=== PATIENT | male | born 1945 | race Two or more races ===

== ENCOUNTER 2023-01-11 17:45 | Inpatient (IN) | payer OTHER ==
[~2023-01-11] VITALS: Ht 162.6 cm; Wt 80.0 kg
[2023-01-11 18:47] VITALS: PULSE 64; RESP 13; O2SAT 95
[2023-01-11 19:11] LABS: Urine Bacteria NONE SEEN /hpf (None Seen); Urine Blood 3+ /uL (Negative); Urine Budding Yeast MANY /hpf (None Seen); Urine Clarity HAZY (Clear); Urine Color Red (Yellow); Urine Protein, UAD 2+ (Negative); Urine Urobilinogen Normal (Negative); Urine WBC 647 /hpf (0 - 3); Urine WBC Clumps PRESENT /hpf (None Seen); Urine pH 5.5 (5.0-8.0)
[2023-01-11 19:30] VITALS: PULSE 63; RESP 16; O2SAT 93
[2023-01-11 19:31] LABS: Basophils # (auto) 0 10 ^3/uL (0-0.2); Basophils % (auto) 0.3 % (0.0-2.0); Eosinophils # (auto) 0.1 10 ^3/uL (0-0.8); Eosinophils % (auto) 1.1 % (0.0-7.0); Hematocrit 33.4 % (41.0-53.0); Hemoglobin 11.1 g/dL (13.5-17.5); Lymphocytes # (auto) 1.6 10 ^3/uL (0.4-5.4); Mean Corpuscular Hemoglobin 28.9 pg (28.0-32.0); Mean Corpuscular Hgb Conc. 33.2 g/dL (32.0-36.0); Mean Corpuscular Volume 87.2 fL (80.0-100.0); Monocytes % (auto) 8.5 % (0.0-12.0); Neutrophils # (auto) 8.5 10 ^3/uL (1.6-8.6); Neutrophils % (auto) 76.1 % (37.0-80.0); Nucleated Red Blood Cells % 0.1 %; Red Blood Cells 3.84 10^6/uL (4.5-5.90); Red Cell Distribution Width 14.4 % (11.8-14.3); White Blood Cell 11.2 10^3/uL (4.4-10.8)
[2023-01-11 19:46] LABS: Alanine Aminotransferase 20 U/L (7-40); Albumin 3.9 g/dL (3.2-4.8); Alkaline Phosphatase 64 U/L (46-116); Anion Gap 8 (5-15); Aspartate Aminotransferase 30 U/L (13-40); BUN/Creatinine Ratio 15.9 (10.0-20.0); Bilirubin, Total 0.4 mg/dL (0.2-1.0); Blood Urea Nitrogen 24 mg/dL (9-23); Calcium 9.2 mg/dL (8.5-10.1); Carbon Dioxide 28 mmol/L (20-30); Chloride 101 mmol/L (98-107); Glucose 144 mg/dL (74-106); Potassium 4.2 mmol/L (3.5-5.1); Sodium 137 mmol/L (136-145); Total Protein 6.3 g/dL (5.7-8.2)
[2023-01-11 20:05] LABS: INR 1.06 (0.9-1.15); Partial Thromboplastin Time 25.7 SEC (24.5-34.5); Prothrombin Time 11.1 sec (9.3-11.8)
[2023-01-11] MEDS ORDERED: ONDANSETRON HCL 4 MG/2 ML VIAL IV ONE (20:15)
[2023-01-11] MEDS ORDERED: MORPHINE SULFATE 4 MG/ML SYR/VIAL IV ONE (20:15)
[2023-01-11] MEDS ORDERED: ACETAMINOPHEN 325 MG TAB PO PRN (21:30)
[2023-01-11] MEDS ORDERED: HYDROcodone-ACET 5/325MG TAB PO PRN (21:30)
[2023-01-11 23:00] VITALS: BP 124/63; PULSE 63; RESP 18; TEMP 98.2; O2SAT 95
[2023-01-11] MEDS ORDERED: TRAZ150T84 PO (23:08)
[2023-01-11] MEDS ORDERED: PREG-111 PO (23:08)
[2023-01-11] MEDS ORDERED: traZODone HCL 50 MG TAB PO SCH (23:15)
[2023-01-11] MEDS: PREGABALIN CAPSULE 75 MG CAP PO SCH (23:29)
[2023-01-11 23:40] VITALS: BP 124/64; PULSE 63; RESP 13; TEMP 98.2; O2SAT 95
[2023-01-12] MEDS ORDERED: TAMS0.4C36 PO (00:39)
[2023-01-12] MEDS ORDERED: ALEN70TA74 PO (00:39)
[2023-01-12] MEDS ORDERED: FERR325T20 PO (00:39)
[2023-01-12] MEDS ORDERED: DULO1CAP5 PO (00:39)
[2023-01-12] MEDS ORDERED: ATOR40TA52 PO (00:39)
[2023-01-12] MEDS ORDERED: OMEP-448 PO (00:39)
[2023-01-12] MEDS ORDERED: DOCU-265 PO (00:39)
[2023-01-12] MEDS ORDERED: CIPR500T4 PO (00:39)
[2023-01-12 05:00] VITALS: BP 133/71; PULSE 60; RESP 20; TEMP 97.5; O2SAT 92
[2023-01-12 05:14] LABS: Chloride 103 mmol/L (98-107); Potassium 4.2 mmol/L (3.5-5.1); Sodium 138 mmol/L (136-145)
[2023-01-12 05:15] LABS: Anion Gap 3 (5-15); Carbon Dioxide 32 mmol/L (20-30)
[2023-01-12 05:20] LABS: Glucose 118 mg/dL (74-106)
[2023-01-12 05:21] LABS: BUN/Creatinine Ratio 11.3 (10.0-20.0); Blood Urea Nitrogen 16 mg/dL (9-23)
[2023-01-12] MEDS: PREGABALIN CAPSULE 75 MG CAP PO SCH ×2 (05:46→14:00)
[2023-01-12 08:00] VITALS: BP 130/69; PULSE 57; PULSE 60; RESP 16; TEMP 97.9; O2SAT 92
[2023-01-12] MEDS ORDERED: CIPROFLOXACIN 400MG/200ML 200 ML IV ONE (08:10)
[2023-01-12] MEDS ORDERED: PROPOFOL 10 MG/ML 20 ML IV ONE (09:11)
[2023-01-12] MEDS ORDERED: ONDANSETRON HCL 4 MG/2 ML VIAL ONE (09:11)
[2023-01-12] MEDS ORDERED: GLYCOPYRROLATE 0.2 MG/ML 1ML VIAL ONE (09:11)
[2023-01-12] MEDS ORDERED: KETOROLAC TROMETH 30 MG/ML 1ML VIAL ONE (09:11)
[2023-01-12] MEDS ORDERED: DexAMETHasone SOD PHOS 10MG/1ML VIAL INJ ONE (09:11)
[2023-01-12] MEDS ORDERED: LIDOCAINE 2% (LOCAL ANESTH.) PF 5ml SDV ONE (09:11)
[2023-01-12] MEDS ORDERED: fentaNYL CITRATE 100 MCG/2 ML VL ONE (09:12)
[2023-01-12] MEDS ORDERED: BACITRACIN TOP OINT 1 UD PKG TOP ONE (09:18)
[2023-01-12] MEDS ORDERED: LIDOCAINE W/ EPINEPHRINE 2% INJ 20ML VIAL ONE (09:19)
[2023-01-12] MEDS ORDERED: PHENYLEPHRINE HCL 10 MG/ML VL ONE (09:52)
[2023-01-12] MEDS ORDERED: SODIUM CHLORIDE LOCK 10 ML ONE (09:52)
[2023-01-12] MEDS ORDERED: SODIUM CHLORIDE 0.9% 500 ML IV ONE (10:15)
[2023-01-12 11:07] VITALS: PULSE 96; RESP 12; O2SAT 100
[2023-01-12] MEDS ORDERED: LABETALOL HCL 5 MG/ML 4ML SYRINGE IV PRN (11:15)
[2023-01-12] MEDS ORDERED: ONDANSETRON HCL 4 MG/2 ML VIAL IV PRN (11:15)
[2023-01-12] MEDS ORDERED: ePHEDrine SULFATE 50 MG/ML AMP IV PRN (11:15)
[2023-01-12] MEDS ORDERED: hydrALAZINE HCL 20 MG/ML VL IV PRN (11:15)
[2023-01-12] MEDS ORDERED: NALOXONE HCL 0.4 MG/ML VIAL IV PRN (11:15)
[2023-01-12] MEDS ORDERED: fentaNYL CITRATE 100 MCG/2 ML VL IV PRN (11:15)
[2023-01-12] MEDS ORDERED: FLUMAZENIL 0.1 MG/ML INJ 10ML MDV IV PRN (11:15)
[2023-01-12] MEDS: HYDROmorphone HCL 2 MG/ML VL/or syr IV PRN ×4 (11:24→11:57)
[2023-01-12 12:00] VITALS: PULSE 65; RESP 12; O2SAT 100
[2023-01-12] MEDS ORDERED: HYDR-4902 PO (15:29)
[2023-01-12 16:00] VITALS: BP 134/74; PULSE 78; RESP 18; TEMP 97.9; O2SAT 98
[2023-01-12 18:27] LABS: Chloride 98 mmol/L (98-107); Potassium 4.5 mmol/L (3.5-5.1); Sodium 133 mmol/L (136-145)
[2023-01-12 18:28] LABS: Anion Gap 6 (5-15); Calcium 9.1 mg/dL (8.7-10.4); Carbon Dioxide 29 mmol/L (20-30)
[2023-01-12 18:33] LABS: BUN/Creatinine Ratio 10.9 (10.0-20.0); Blood Urea Nitrogen 14 mg/dL (9-23); Glucose 179 mg/dL (74-106)
== END 2023-01-12 21:00 | disposition home health service (06) | DRG 717 ==
LOC: ER 17:45 → TELE 21:59 → TELE-WESTW 23:05
PROVIDERS: ADMIT Internal Medicine; ATTEND Internal Medicine
PROC: 0T5C8ZZ Destruction of Bladder Neck, Via Natural or Artificial Opening Endoscopic (ICD-10-PCS; principal; 2023-01-12 09:38)
DX: N40.1 Benign prostatic hyperplasia with lower urinary tract symptoms (principal); N13.8 Other obstructive and reflux uropathy; N17.9 Acute kidney failure, unspecified; E78.5 Hyperlipidemia, unspecified; F32.9 Major depressive disorder, single episode, unspecified; F41.9 Anxiety disorder, unspecified; G62.9 Polyneuropathy, unspecified; I12.9 Hypertensive chronic kidney disease with stage 1 through stage 4 chronic kidney disease, or unspecified chronic kidney disease; K21.9 Gastro-esophageal reflux disease without esophagitis; M81.0 Age-related osteoporosis without current pathological fracture; N18.9 Chronic kidney disease, unspecified; N32.0 Bladder-neck obstruction; N47.1 Phimosis; R31.0 Gross hematuria; R33.8 Other retention of urine
CPT/HCPCS: 36415; 76775; 80048; 80053; 81001; 83615; 85025; 85610; 85730; 86850; 86900; 86901; 87040; 87086; 96374; 96375; G0378; J1100; J1885; J2001; J2405; J2704

== ENCOUNTER 2024-04-15 11:03 | Emergency (ER) | payer OTHER, MEDICAID ==
[~2024-04-15] VITALS: Ht 160 cm; Wt 76.2 kg
[~2024-04-15 11:03] MED LIST: ALEN70TA74 PO; ATOR40TA52 PO; CIPR500T4 PO; DOCU-265 PO; DULO1CAP5 PO; FERR325T20 PO; HYDR-4902 PO; OMEP-448 PO; PREG150C63 PO; TAMS0.4C39 PO; TRAZ150T84 PO
[2024-04-15 11:35] VITALS: BP 105/64; PULSE 88; RESP 21; O2SAT 97
[2024-04-15] MEDS: HYDROcodone-ACET 5/325MG TAB PO ONE (13:20)
--- NOTE | 2024-04-15 13:23 | DVH ---
CLINICAL INDICATION: neck pain TECHNIQUE: 3 radiographic views of the cervical spine were obtained. Comparison: None FINDINGS/IMPRESSION: 7 [id number] cervical type vertebra. Straightening of the cervical lordosis. Vertebral body he ights are maintained. No evidence of acute traumatic fractures or spondylolisthesis. Diffuse deminer alization. Postsurgical changes of C4-C7. The dens is intact with the lateral masses of C1 and C2 are properly aligned. The prevertebral soft tissues are unremarkable. Airways appear patent.
[2024-04-15 15:11] LABS: Basophils # (auto) 0 10 ^3/uL (0-0.2); Basophils % (auto) 0.4 % (0.0-2.0); Eosinophils # (auto) 0.2 10 ^3/uL (0-0.8); Eosinophils % (auto) 2.2 % (0.0-7.0); Hemoglobin 12.9 g/dL (13.5-17.5); Lymphocytes # (auto) 2.3 10 ^3/uL (0.4-5.4); Lymphocytes % (auto) 22.1 % (10.0-50.0); Mean Corpuscular Hemoglobin 27.7 pg (28.0-32.0); Mean Corpuscular Hgb Conc. 32.2 g/dL (32.0-36.0); Monocytes # (auto) 0.9 10 ^3/uL (0-1.3); Monocytes % (auto) 9.1 % (0.0-12.0); Neutrophils # (auto) 6.8 10 ^3/uL (1.6-8.6); Neutrophils % (auto) 66.2 % (37.0-80.0); Nucleated Red Blood Cells % 0.4 %; Platelet Count (auto) 150 10^3/uL (140-450); Red Blood Cells 4.65 10^6/uL (4.5-5.90); White Blood Cell 10.2 10^3/uL (4.4-10.8)
[2024-04-15 15:15] LABS: Anion Gap 8 (5-15); Carbon Dioxide 25 mmol/L (20-31); Chloride 102 mmol/L (98-107); Potassium 4.4 mmol/L (3.5-5.1)
[2024-04-15 15:16] LABS: Calcium 10.2 mg/dL (8.7-10.4)
[2024-04-15 15:21] LABS: BUN/Creatinine Ratio 14.3 (10.0-20.0); Blood Urea Nitrogen 20 mg/dL (9-23); Glucose 100 mg/dL (74-106)
[2024-04-15 15:29] LABS: Sodium 135 mmol/L (136-145)
--- NOTE | 2024-04-15 15:40 | ED.PDOC ---
Back pain HPI HPI Comments 78-year-old male with no MHx is brought in by with a chief complaint of atraumatic neck pain x1 day. Woke up and pain was present Worsens with lateral movements. Applied and neck brace and reports some improvement. Has not taken medications for the symptoms listed above. Denies fevers chills nausea vomiting diarrhea. Chief Complaint: Neck Pain Time Seen by MD: 11:52 Reviewed Notes: Nurses Notes, Medications, Allergies Allergies: Coded Allergies: NO KNOWN ALLERGIES (Unverified , 01/11/23) Home Meds Active Scripts Hydrocodone-Acetaminophen (Hydrocodone Bitartrate/AC 5-325 mg) 1 Tab Tab, 1 TAB PO Q6HPRN PRN, #20 TAB Prov:LEONIDES SIM MD 01/12/23 Reported Medications Docusate Sodium (Docusate Sodium) 100 Mg Cap, 1 CAP PO TID PRN for constipation 01/12/23 Duloxetine HCl (Duloxetine HCl) 30 Mg Cap, 3 CAP PO DAILY 01/12/23 Omeprazole (Omeprazole Dr) 40 Mg Cap, 1 CAP PO DAILY 01/12/23 Alendronate Sodium (Alendronate Sodium) 70 Mg Tab, 1 TAB PO QWEEKLY 01/12/23 Ciprofloxacin Hcl (Ciprofloxacin Hcl) 500 Mg Tab, 1 TAB PO BID 01/12/23 Tamsulosin Hcl (Tamsulosin Hcl) 0.4 Mg Cap, 2 CAP PO DAILY 01/12/23 Ferrous Sulfate (Ferosul) 325 Mg Tab, 1 TAB PO BID 01/12/23 Atorvastatin Calcium (ATORVASTATIN CALCIUM) 40 Mg Tab, 1 TAB PO 01/12/23 Pregabalin (Pregabalin) 150 Mg Cap, 1 CAP PO TID 01/11/23 Trazodone HCl (Trazodone Hydrochorlide) 150 Mg Tab, 1 TAB PO 01/11/23 Information Source: Spouse Mode of Arrival: Wheelchair Past Medical History PAST MEDICAL HISTORY: Denies Surgical History: Denies all surgeries All Other Systems: Reviewed and Negative (per hpi) Physical Exam General Appearance: No Apparent Distress, Normal HEENT: Normal ENT Inspection, Pharynx Normal, TMs Normal Neck: Full Range of Motion, Non-Tender, Normal, Normal Inspection, Other (No nuchal rigidity.) Respiratory: Chest Non-Tender, Lungs Clear, No Accessory Muscle Use, No Respiratory Distress, Normal Breath Sounds Cardiovascular: No Edema, No JVD, No Murmur, No Gallop, Normal Peripheral Pulses, Regular Rate/Rhythm Breast Exam: Deferred Gastrointestinal: No Organomegaly, Non Tender, No Pulsatile Mass, Normal Bowel Sounds, Soft Genitalia: Deferred Pelvic: Deferred Rectal: Deferred Extremities: No calf tenderness, Normal capillary refill, Normal inspection, Normal range of motion, Non-tender, No pedal edema Musculoskeletal : Apperance: Normal Neurologic: Alert, space technologist II-XII nml as Tested, No Motor Deficits, Normal Affect, Normal Mood, No Sensory Deficits Cerebellar Function: Normal Reflexes: Normal Skin: Dry, Normal Color, Warm Lymphatic: No Adenopathy Was a procedure done? Was a procedure done?: No Back Pain Differential Dx Differential Diagnosis: Musculoskeletal Pain, Other X-Ray, Labs, Meds, VS Vital Signs Date Time Temp Pulse Resp B/P (MAP) Pulse Ox O2 Delivery O2 Flow Rate FiO2 04/15/24 11:35 98.2 88 21 105/64 (78) 97 Lab Test 04/15/24 14:22 Range/Units White Blood Count 10.2 4.4-10.8 10^3/uL Red Blood Count 4.65 4.5-5.90 10^6/uL Hemoglobin 12.9 L 13.5-17.5 g/dL Hematocrit 40.0 L 41.0-53.0 % Mean Corpuscular Volume 86.0 80.0-100.0 fL Mean Corpuscular Hemoglobin 27.7 L 28.0-32.0 pg Mean Corpuscular Hemoglobin Concent 32.2 32.0-36.0 g/dL Red Cell Distribution Width 15.0 H 11.8-14.3 % Platelet Count 150 140-450 10^3/uL Mean Platelet Volume 8.9 6.9-10.8 fL Neutrophils (%) (Auto) 66.2 37.0-80.0 % Lymphocytes (%) (Auto) 22.1 10.0-50.0 % Monocytes (%) (Auto) 9.1 0.0-12.0 % Eosinophils (%) (Auto) 2.2 0.0-7.0 % Basophils (%) (Auto) 0.4 0.0-2.0 % Neutrophils # (Auto) 6.8 1.6-8.6 10 ^3/uL Lymphocytes # (Auto) 2.3 0.4-5.4 10 ^3/uL Monocytes # (Auto) 0.9 0-1.3 10 ^3/uL Eosinophils # (Auto) 0.2 0-0.8 10 ^3/uL Basophils # (Auto) 0 0-0.2 10 ^3/uL Nucleated Red Blood Cells 0.4 % Sodium Level 135 L 136-145 mmol/L Potassium Level 4.4 3.5-5.1 mmol/L Chloride Level 102 98-107 mmol/L Carbon Dioxide Level 25 20-31 mmol/L Anion Gap 8 5-15 Blood Urea Nitrogen 20 9-23 mg/dL Creatinine 1.40 H 0.700-1.30 mg/dL Glomerular Filtration Rate Calc 51 >90 mL/min BUN/Creatinine Ratio 14.3 10.0-20.0 Serum Glucose 100 74-106 mg/dL Lactic Acid Level 1.0 0.4-2.0 mmol/L Calcium Level 10.2 8.7-10.4 mg/dL Current Medications Medications (Trade) Dose Ordered Sig/Melanie Route Start Time Stop Time Status Last Admin Acetaminophen/ Hydrocodone Bitart ([place] 5/325MG Tab) 1 tab ONCE ONCE PO 04/15/24 13:15 04/15/24 13:16 DC 04/15/24 13:20 X-Ray, Labs, Meds, VS Comment The patients history and physical exam are consistent with a benign headache. Likely musculoskeletal related. Considered subarachnoid hemorrhage however this is less likely given that the patient has had a similar and worst headaches in the past, the lack of trauma, and the slow onset with intermittent symptomatology. Low suspicion of meningitis given the afebrile, well-appearing, and without meningismus on exam. Additionally no history of recent trauma prior to the patient experiencing this headache. Finally, the patient does not report any positional exacerbation with the headaches and has not had a recent spinal procedures therefore my suspicion for central causes and post procedural etiologies of headaches are less likely. Low concern for meningitis as there are no signs of fever, altered mentation nor neck stiffness. Brudzinski/Kernig negative. Given benign exam and history, CT imaging was discussed with the patient and was deferred during this visit. While in the ED, the patient was treated with x1 the patient reported significant improvement on re-evaluation. Patient was overall well-appearing and hemodynamically stable in the ED. They were able to ambulate and continued to have a nonfocal exam in the emergency department. Discussed continued symptomatic treatment at home. Recommended follow up with PCP. Return precautions to the ED discussed Counseled to start headache diary Recommended headache elimination diet Avoid prolonged periods of fasting Drink plenty of water Exercise daily, limit screen time Aim to sleep 8 to 9 hours per night, practice good hygiene ED precautions given Time of 1ST Reevaluation: 15:30 Reevaluation 1ST: Improved Patient Education/Counseling: Diagnosis, Treatment Family Education/Counseling: Diagnosis, Treatment Departure 1 Departure Time of Disposition: 15:40 Impression: Primary Impression: Cervicalgia Disposition: 01 HOME / SELF CARE / HOMELESS Condition: Stable Discharged With: Self Critical Care Note Critical Care Time?: No Stability Stability form required: No Heart Score Heart Score: Heart Score Response (Comments) Value History N/A 0 EKG N/A 0 Age N/A 0 Risk Factors N/A 0 Troponin N/A 0 Total 0 YULIANA HARPER NP Apr 15, 2024 15:40
== END 2024-04-15 15:46 | disposition home or self-care (01) ==
LOC: ER 11:03
DX: M54.2 Cervicalgia (principal); Z79.899 Other long term (current) drug therapy
CPT/HCPCS: 36415; 72040; 80048; 83605; 85025

== ENCOUNTER 2025-02-10 23:30 | Inpatient (IN) | payer OTHER, MEDICAID ==
[~2025-02-10] VITALS: Ht 162.6 cm; Wt 78.0 kg
--- NOTE | 2025-02-10 23:49 | ECG ---
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
--- NOTE | 2025-02-10 23:51 | ED.PDOC ---
HPI Comments 79-year-old male complains of dull parasternal chest pain for last 1 day. Unprovoked. Gets worse with activity. Chief Complaint: Chest Pain Time Seen by MD: 23:39 Allergies: Coded Allergies: NO KNOWN ALLERGIES (Unverified , 01/11/23) Home Meds Active Scripts Hydrocodone-Acetaminophen (Hydrocodone Bitartrate/AC 5-325 mg) 1 Tab Tab, 1 TAB PO Q6HPRN PRN, #20 TAB Prov:LEONIDES SIM MD 01/12/23 Reported Medications Docusate Sodium (Docusate Sodium) 100 Mg Cap, 1 CAP PO TID PRN for constipation 01/12/23 Duloxetine HCl (Duloxetine HCl) 30 Mg Cap, 3 CAP PO DAILY 01/12/23 Omeprazole (Omeprazole Dr) 40 Mg Cap, 1 CAP PO DAILY 01/12/23 Alendronate Sodium (Alendronate Sodium) 70 Mg Tab, 1 TAB PO QWEEKLY 01/12/23 Ciprofloxacin Hcl (Ciprofloxacin Hcl) 500 Mg Tab, 1 TAB PO BID 01/12/23 Tamsulosin Hcl (Tamsulosin Hcl) 0.4 Mg Cap, 2 CAP PO DAILY 01/12/23 Ferrous Sulfate (Ferosul) 325 Mg Tab, 1 TAB PO BID 01/12/23 Atorvastatin Calcium (ATORVASTATIN CALCIUM) 40 Mg Tab, 1 TAB PO 01/12/23 Pregabalin (Pregabalin) 150 Mg Cap, 1 CAP PO TID 01/11/23 Trazodone HCl (Trazodone Hydrochorlide) 150 Mg Tab, 1 TAB PO 01/11/23 Information Source: Patient, Relative Mode of Arrival: Ambulatory Severity: Moderate Timing: Hours Duration: Since onset Past Medical History PAST MEDICAL HISTORY: Denies Surgical History: Denies all surgeries Social History Smoker: Non-Smoker Alcohol: Denies ETOH Use Drugs: Denies Drug Use Constitutional: reports: fatigue, malaise Cardiovascular: reports: chest pain Genitourinary: reports: dysuria All Other Systems: Reviewed and Negative Physical Exam General Appearance: Moderate Distress HEENT: Normal ENT Inspection, Pharynx Normal, TMs Normal Neck: Full Range of Motion, Non-Tender, Normal, Normal Inspection Respiratory: Chest Non-Tender, Lungs Clear, No Accessory Muscle Use, No Respiratory Distress, Normal Breath Sounds Cardiovascular: No Edema, No JVD, No Murmur, No Gallop, Normal Peripheral Pulses, Regular Rate/Rhythm Breast Exam: Deferred Gastrointestinal: No Organomegaly, Non Tender, No Pulsatile Mass, Normal Bowel Sounds, Soft Genitalia: Deferred Pelvic: Deferred Rectal: Deferred Extremities: No calf tenderness, Normal capillary refill, Normal inspection, Normal range of motion, Non-tender, No pedal edema Musculoskeletal : Apperance: Normal Neurologic: Alert, produce field merchandiser II-XII nml as Tested, No Motor Deficits, Normal Affect, Normal Mood, No Sensory Deficits Cerebellar Function: Normal Reflexes: Normal Skin: Dry, Normal Color, Warm Lymphatic: No Adenopathy Was a procedure done? Was a procedure done?: No CP Differential Dx Differential Diagnosis: A-fib, A-Flutter, Angina, Electrolyte Disorder, Heart Failure, MAT, SD, V-Fib, V-Tach, Other X-Ray, Labs, Meds, VS Vital Signs Date Time Temp Pulse Resp B/P (MAP) Pulse Ox O2 Delivery O2 Flow Rate FiO2 02/11/25 01:20 17 98 Nasal Cannula* 2 28 02/11/25 01:16 86 02/11/25 01:14 97.9 86 17 154/95 (114) 98 97.9 02/11/25 01:00 97.9 89 16 149/77 (101) 93 97.9 02/11/25 00:40 82 02/11/25 00:40 82 02/11/25 00:32 Room Air* 0 21 02/11/25 00:25 80 13 149/89 02/10/25 23:44 98.2 80 16 149/89 95 98.2 02/10/25 23:38 79 Lab Test 02/11/25 00:40 02/10/25 23:41 Range/Units Sodium Level 128 L 136-145 mmol/L Potassium Level 5.5 H 3.5-5.1 mmol/L Chloride Level 94 L 98-107 mmol/L Carbon Dioxide Level 21 20-31 mmol/L Anion Gap 13 5-15 Blood Urea Nitrogen 59 H 9-23 mg/dL Creatinine 8.06 H 0.700-1.30 mg/dL Glomerular Filtration Rate Calc 6 >90 mL/min BUN/Creatinine Ratio 7.3 L 10.0-20.0 Serum Glucose 99 74-106 mg/dL Calcium Level 8.8 8.7-10.4 mg/dL Total Bilirubin 0.4 0.2-1.0 mg/dL Aspartate Amino Transferase (AST) 21 13-40 U/L Alanine Aminotransferase (ALT) 13 7-40 U/L Alkaline Phosphatase 92 46-116 U/L Troponin I High Sensitivity 10 12 </=54 ng/L Total Protein 6.9 5.7-8.2 g/dL Albumin 3.9 3.2-4.8 g/dL White Blood Count 9.4 4.4-10.8 10^3/uL Red Blood Count 3.90 L 4.5-5.90 10^6/uL Hemoglobin 10.9 L 13.5-17.5 g/dL Hematocrit 32.7 L 41.0-53.0 % Mean Corpuscular Volume 83.9 80.0-100.0 fL Mean Corpuscular Hemoglobin 27.9 L 28.0-32.0 pg Mean Corpuscular Hemoglobin Concent 33.2 32.0-36.0 g/dL Red Cell Distribution Width 14.0 11.8-14.3 % Platelet Count 120 L 140-450 10^3/uL Mean Platelet Volume 9.3 6.9-10.8 fL Neutrophils (%) (Auto) 65.1 37.0-80.0 % Lymphocytes (%) (Auto) 22.4 10.0-50.0 % Monocytes (%) (Auto) 7.8 0.0-12.0 % Eosinophils (%) (Auto) 4.4 0.0-7.0 % Basophils (%) (Auto) 0.3 0.0-2.0 % Neutrophils # (Auto) 6.1 1.6-8.6 10 ^3/uL Lymphocytes # (Auto) 2.1 0.4-5.4 10 ^3/uL Monocytes # (Auto) 0.7 0-1.3 10 ^3/uL Eosinophils # (Auto) 0.4 0-0.8 10 ^3/uL Basophils # (Auto) 0 0-0.2 10 ^3/uL Nucleated Red Blood Cells 0.0 % Prothrombin Time 10.6 9.3-11.8 sec Prothrombin Time INR 1.00 0.9-1.15 Activated Partial Thromboplast Time 30.8 24.5-34.5 SEC B-Type Natriuretic Peptide 103.39 0-100 pg/mL Current Medications Medications (Trade) Dose Ordered Sig/Melanie Route Start Time Stop Time Status Last Admin Morphine Sulfate 4 mg ONCE ONCE IV 02/11/25 00:00 02/11/25 00:01 DC 02/11/25 00:25 Ondansetron HCl (Zofran) 4 mg ONCE ONCE IV 02/11/25 00:00 02/11/25 00:01 DC 02/11/25 00:24 Aspirin 162 mg ONCE ONCE PO 02/11/25 00:00 02/11/25 00:01 DC 02/11/25 00:24 Time of 1ST Reevaluation: 23:50 Reevaluation 1ST: Unchanged Patient Education/Counseling: Diagnosis, Treatment Family Education/Counseling: Diagnosis, Treatment SEPSIS Sepsis Screen Physician Orders Troponin-I Hs (02/11/25 02:47) Chest Xray 1 View (02/10/25 23:52) Bladder Scan (02/10/25 23:52) Vital Signs Date Time Temp Pulse Resp B/P (MAP) Pulse Ox O2 Delivery O2 Flow Rate FiO2 02/11/25 01:20 17 98 Nasal Cannula* 2 28 02/11/25 01:16 86 02/11/25 01:14 97.9 86 17 154/95 (114) 98 97.9 02/11/25 01:00 97.9 89 16 149/77 (101) 93 97.9 02/11/25 00:40 82 02/11/25 00:40 82 02/11/25 00:32 Room Air* 0 21 02/11/25 00:25 80 13 149/89 02/10/25 23:44 98.2 80 16 149/89 95 98.2 02/10/25 23:38 79 Laboratory Tests Test 02/10/25 23:41 White Blood Count 9.4 10^3/uL (4.4-10.8) Medications Medications Dose Ordered Sig/Melanie Route Start Time Stop Time Status Last Admin Dose Admin Aspirin 162 mg ONCE ONCE PO 02/11/25 00:00 02/11/25 00:01 DC 02/11/25 00:24 Morphine Sulfate 4 mg ONCE ONCE IV 02/11/25 00:00 02/11/25 00:01 DC 02/11/25 00:25 Ondansetron HCl 4 mg ONCE ONCE IV 02/11/25 00:00 115/25 00:01 DC 02/11/25 00:24 Departure 1 Departure Time of Disposition: 02:26 Impression: Primary Impression: Acute coronary syndrome Disposition: 09 ADMITTED INPATIENT Admit to: Tele Condition: Guarded Discharged With: Self Comments 79-year-old male with multiple risk factors now with chest pain that gets worse with exertion. Initial troponin is normal. Patient will need admission for supportive care and further cardiac workup. Critical Care Note Critical Care Time?: Yes (35 min-critical care time only) Critical care comment: Total critical care time: Approximately 36 minutes Due to a high probability of clinically significant, life threatening deter ioration, the patient required my highest level of preparedness to intervene emergently and I personally spent this critical care time directly and personally managing the patient. This critical care time included obtaining a history; examining the patient; pulse oximetry; ordering and review of studies; arranging urgent treatment with development of a management plan; evaluation of patient's response to treatment; frequent reassessment; and, discussions with other providers. This critical care time was performed to assess and manage the high probability of imminent, life-threatening deterioration that could result in multi-organ fa ilure. It was exclusive of separately billable procedures and treating other patients. Stability Stability form required: No Heart Score Heart Score: Heart Score Response (Comments) Value History N/A 0 EKG N/A 0 Age N/A 0 Risk Factors N/A 0 Troponin N/A 0 Total 0 MISTY PERALES MD Feb 10, 2025 23:51
[2025-02-11] VITALS (9 sets, daily range): BP systolic 149–166; BP diastolic 90–100; PULSE 81–102; RESP 14–22; TEMP 98–98.2; O2SAT 97–98
[2025-02-11 00:06] LABS: Hematocrit 32.7 % (41.0-53.0); Hemoglobin 10.9 g/dL (13.5-17.5); Mean Corpuscular Hemoglobin 27.9 pg (28.0-32.0); Mean Corpuscular Volume 83.9 fL (80.0-100.0); Nucleated Red Blood Cells % 0.0 %
--- NOTE | 2025-02-11 00:18 | DVH ---
CHEST RADIOGRAPH Indication: chest pain Technique: Single frontal view of the chest was obtained COMPARISON: XY CERVICAL SPINE 3V on DOS: 04/15/24 FINDINGS: Lines and Tubes: None Lungs: Small right pleural effusion. No evidence of focal consolidation. No pneumothorax. Cardiomediastinal contours: Cardiomegaly. Bones: Unremarkable. ACDF hardware. Thoracic spinal cord stimulator. IMPRESSION: 1. Cardiomegaly and small right pleural effusion.
[2025-02-11] MEDS: ONDANSETRON HCL 4 MG/2 ML VIAL IV ONE (00:24)
[2025-02-11 00:25] LABS: INR 1.0 (0.9-1.15); Partial Thromboplastin Time 30.8 SEC (24.5-34.5); Prothrombin Time 10.6 sec (9.3-11.8)
[2025-02-11] MEDS: MORPHINE SULFATE 4 MG/ML SYR/VIAL IV ONE ×2 (00:25→06:04)
[2025-02-11 01:46] LABS: Anion Gap 13 (5-15)
[2025-02-11 01:52] LABS: Alkaline Phosphatase 92 U/L (46-116); BUN/Creatinine Ratio 7.3 (10.0-20.0); Blood Urea Nitrogen 59 mg/dL (9-23); Calcium 8.8 mg/dL (8.7-10.4); Carbon Dioxide 21 mmol/L (20-31); Chloride 94 mmol/L (98-107); Glucose 99 mg/dL (74-106); Potassium 5.5 mmol/L (3.5-5.1); Sodium 128 mmol/L (136-145); Total Protein 6.9 g/dL (5.7-8.2)
[2025-02-11 01:57] LABS: Alanine Aminotransferase 13 U/L (7-40); Albumin 3.9 g/dL (3.2-4.8); Bilirubin, Total 0.4 mg/dL (0.2-1.0)
--- NOTE | 2025-02-11 09:26 | DVH ---
Exam: CT CT AB PEL WO CON-NO ORAL OR IV History: abdominal pain, new onset renal failure Comparison Study: XY CHEST XRAY 1 VIEW on DOS: 02/10/25, US KIDNEY on DOS: 01/11/23 Technique: Multidetector spiral CT of the abdomen and pelvis was performed from lung bases to pubic symphysis. Imaging was performed without intravenous contrast. Coronal and sagittal multiplanar reformats were obtained from the axial data set by the technologist. Radiation Dose : 1. Abdomen/Pelvis: CTDIvol 16.99 mGy, DLP 1102.05 mGy*cm. Findings: Evaluation of vasculature and solid organs is limited due to lack of intravenous contrast use. Lung Bases: Bilateral lower lobe consolidation. The heart is normal in size. There is a small pericardial effusion. Normal caliber thoracic aorta and main pulmonary artery. Liver: The liver is normal in size. No focal lesions. Gallbladder and Biliary Tree: The gallbladder is unremarkable. No intrahepatic or extrahepatic biliary ductal dilatation. Spleen: Unremarkable Pancreas: The pancreas is grossly unremarkable. Adrenal Glands: Unremarkable Kidneys: There is mild bilateral hydroureteronephrosis. No obstructive calculus. GI tract: Fluid distention of the stomach noted. No evidence of small bowel wall thickening or abnormal dilatation to suggest bowel obstruction. There is colonic diverticulosis without acute diverticulitis. The appendix is visualized and is normal. Peritoneum/mesentery/retroperitoneum. No evidence of free intraperitoneal air. No ascites. No evidence of suspicious lymphadenopathy. Abdominal Wall: There are bilateral fat containing inguinal hernias. Vasculature: The visualized abdominal aorta is normal in size and caliber. Evaluation of abdominal and pelvic vessels is limited due to lack of intravenous contrast. Urinary Bladder: Underdistended urinary bladder. There is wall thickening of the urinary bladder. Marshall catheter balloon is noted within the bladder lumen. Pelvic Organs: Unremarkable Musculoskeletal: No aggressive focal bony lesions, acute fractures or dislocation. There is instrumented fusion in the lumbar spine at L4-L5. Soft tissues: There is a stimulator generator in the left lower back. IMPRESSION: 1. Bilateral lower lobe consolidation. 2. Mild bilateral hydroureteronephrosis. No obstructive calculus. Wall thickening of the urinary bladder. Findings are suspicious for cystitis and ascending urinary tract infections. 3. Colonic diverticulosis without acute diverticulitis.
[2025-02-11] MEDS: SODIUM CHLORIDE 0.9% 1,000 ML IV ONE ×2 (09:45→11:00)
--- NOTE | 2025-02-11 10:02 | ED.PDOC ---
Departure 1 Departure Time of Disposition: 10:00 (Patient likely with the acute renal failure. CT scan of abdomen shows multifocal pneumonia. It is well as worsening hydronephrosis. We will empirically cover patient with antibiotics resuscitated with fluid admit patient for further workup and expert consultation) Impression: Primary Impression: Acute renal failure Additional Impressions: Acute coronary syndrome Multifocal pneumonia Hyperkalemia Disposition: ADMITTED INPATIENT Admit to: [facility] Condition: Critical Discharged With: Self Critical Care Note Critical Care Time?: Yes Critical care comment: Hyperkalemia and acute renal failure Authorized and Performed by: Tamar Kovacs MD Total critical care time: Approximately 119 minutes Due to a high probability of clinically significant, life threatening deterioration, the patient required my highest level of preparedness to intervene emergently and I personally spent this critical care time directly and personally managing the patient. This critical care time included obtaining a history; examining the patient; pulse oximetry; ordering and review of studies; arranging urgent treatment with development of a management plan; evaluation of patient's response to treatment; frequent reassessment; and, discussions with other providers. This critical care time was performed to assess and manage the high probability of imminent, life-threatening deterioration that could result in multi-organ failure. It was exclusive of separately billable procedures and treating other patients and teaching time. Please see my other sections and the rest of the note for further information on patient assessment and treatment. TAMAR KOVACS MD Feb 11, 2025 10:01
[2025-02-11] MEDS ORDERED: SODIUM CHLORIDE 0.9% 1,000 ML IV SCH (10:30)
--- NOTE | 2025-02-11 10:41 | DVHHP2 ---
History of Present Illness Reason for Visit: Chest Pain History of Present Illness Jeffery Nixon is an 79-year-old male with past medial history of hypertension, hyperlipidemia, and BPH, who came to the hospital for chest pain. Patient states he has not been able to urinate or have a bowel movement in 2-3 days. He states he has an appointment to see his provider. He was prompted to come to the hospital today due to the chest pain. While in ER his troponin were negative but labs showed acute kidney failure. Patient was seen here in April with a creatine of 1.4 today his creatine is 8.4 with potassium of 5.5. Patient will be admitted for acute renal failure with nephrology consult. Cardiovascular: HTN, hyperipidemia Renal/: Benign prostatic enlarg. Smoke: No ALCOHOL: none Drugs: None Lives: with Family Domestic Violence: Neg Review of Systems Constitutional: No: Fever, Chills, Sweats, Weakness, Malaise, Other Eyes: No: Pain, Vision change, Conjunctivae inflammation, Eyelid inflammation, Other, Redness ENT: No: Ear pain, Ear discharge, Nose pain, Nose discharge, Nose congestion, Mouth pain, Mouth swelling, Throat pain, Throat swelling, Other Respiratory: Shortness of breath; No: Cough, Dry, SOB with excertion, Wheezing, Hemoptysis, Pleuritic Pain, Sputum, Wheezing, Other Cardiovascular: Chest Pain; No: Palpitations, Orthopnea, Paroxysmal Noc. Dyspnea, Edema, Lt Headedness, Other Gastrointestinal: Nausea, Abdominal Pain; No: Vomiting, Diarrhea, Constipation, Melena, Hematochezia, Other Genitourinary: No Dysuria, No Frequency, No Incontinence, No Hematuria, No Retention, No Other Musculoskeletal: No: other, neck pain, shoulder pain, arm pain, back pain, hand pain, leg pain, foot pain Skin: No: Rash, Lesions, Jaundice, Bruising, Other Neurological: No: Weakness, Numbness, Incoordination, Change in speech, Con fusion, Seizures, Other Allergies: Coded Allergies: NO KNOWN ALLERGIES (Unverified , 01/11/23) Medications Current Medications Medications Dose Ordered Sig/Melanie Route Start Time Stop Time Status Last Admin Dose Admin Sodium Chloride 1,000 ml @ 100 mls/hr Q10H IV 02/11/25 10:30 UNV Ondansetron HCl 4 mg Q4HP PRN IV 02/11/25 10:45 UNV Docusate Sodium 100 mg BIDPRN PRN PO 02/11/25 10:45 UNV Nitroglycerin 0.4 mg Q5MINP PRN SL 02/11/25 10:45 UNV Morphine Sulfate 2 mg Q30M PRN IV 02/11/25 10:45 UNV Exam Vital Signs Vital Signs Date Time Temp Pulse Resp B/P (MAP) Pulse Ox O2 Delivery O2 Flow Rate FiO2 02/11/25 08:00 87 14 98 Nasal Cannula* 2 28 02/11/25 08:00 98.2 134/88 (103) 98.2 General Appearance: Alert, Oriented X3, Cooperative, moderate distress HEENT: Atraumatic, PERRLA, Other (mucous memebr dry) Respiratory: Clear to auscultation Cardiovascular: Regular rate, Normal S1, Normal S2 Abdominal: Normal bowel sounds, Soft, No tenderness, No hepatospenomegaly Extremities: No clubbing, No cyanosis, No edema, Normal pulses Skin: No rashes, No breakdown, No significant lesion Neuro: Normal gait, Normal speech, Strength at 5/5 X4 ext Psych/Mental Status: Mental status NL, Mood NL Labs/Xrays Labs Test 02/11/25 00:40 02/10/25 23:41 Range/Units Sodium Level 128 L 136-145 mmol/L Potassium Level 5.5 H 3.5-5.1 mmol/L Chloride Level 94 L 98-107 mmol/L Carbon Dioxide Level 21 20-31 mmol/L Anion Gap 13 5-15 Blood Urea Nitrogen 59 H 9-23 mg/dL Creatinine 8.06 H 0.700-1.30 mg/dL Glomerular Filtration Rate Calc 6 >90 mL/min BUN/Creatinine Ratio 7.3 L 10.0-20.0 Serum Glucose 99 74-106 mg/dL Calcium Level 8.8 8.7-10.4 mg/dL Total Bilirubin 0.4 0.2-1.0 mg/dL Aspartate Amino Transferase (AST) 21 13-40 U/L Alanine Aminotransferase (ALT) 13 7-40 U/L Alkaline Phosphatase 92 46-116 U/L Troponin I High Sensitivity 10 </=54 ng/L Total Protein 6.9 5.7-8.2 g/dL Albumin 3.9 3.2-4.8 g/dL White Blood Count 9.4 4.4-10.8 10^3/uL Red Blood Count 3.90 L 4.5-5.90 10^6/uL Hemoglobin 10.9 L 13.5-17.5 g/dL Hematocrit 32.7 L 41.0-53.0 % Mean Corpuscular Volume 83.9 80.0-100.0 fL Mean Corpuscular Hemoglobin 27.9 L 28.0-32.0 pg Mean Corpuscular Hemoglobin Concent 33.2 32.0-36.0 g/dL Red Cell Distribution Width 14.0 11.8-14.3 % Platelet Count 120 L 140-450 10^3/uL Mean Platelet Volume 9.3 6.9-10.8 fL Neutrophils (%) (Auto) 65.1 37.0-80.0 % Lymphocytes (%) (Auto) 22.4 10.0-50.0 % Monocytes (%) (Auto) 7.8 0.0-12.0 % Eosinophils (%) (Auto) 4.4 0.0-7.0 % Basophils (%) (Auto) 0.3 0.0-2.0 % Neutrophils # (Auto) 6.1 1.6-8.6 10 ^3/uL Lymphocytes # (Auto) 2.1 0.4-5.4 10 ^3/uL Monocytes # (Auto) 0.7 0-1.3 10 ^3/uL Eosinophils # (Auto) 0.4 0-0.8 10 ^3/uL Basophils # (Auto) 0 0-0.2 10 ^3/uL Nucleated Red Blood Cells 0.0 % Prothrombin Time 10.6 9.3-11.8 sec Prothrombin Time INR 1.00 0.9-1.15 Activated Partial Thromboplast Time 30.8 24.5-34.5 SEC B-Type Natriuretic Peptide 103.39 0-100 pg/mL CHEST RADIOGRAPH FINDINGS: Lines and Tubes: None Lungs: Small right pleural effusion. No evidence of focal consolidation. No pneumothorax. Cardiomediastinal contours: Cardiomegaly. Bones: Unremarkable. ACDF hardware. Thoracic spinal cord stimulator. IMPRESSION: 1. Cardiomegaly and small right pleural effusion. Exam: CT CT AB PEL WO CON-NO ORAL OR IV Findings: Evaluation of vasculature and solid organs is limited due to lack of intravenous contrast use. Lung Bases: Bilateral lower lobe consolidation. The heart is normal in size. There is a small pericardial effusion. Normal caliber thoracic aorta and main pulmonary artery. Liver: The liver is normal in size. No focal lesions. Gallbladder and Biliary Tree: The gallbladder is unremarkable. No intrahepatic or extrahepatic biliary ductal dilatation. Spleen: Unremarkable Pancreas: The pancreas is grossly unremarkable. Adrenal Glands: Unremarkable Kidneys: There is mild bilateral hydroureteronephrosis. No obstructive calculus. GI tract: Fluid distention of the stomach noted. No evidence of small bowel wall thickening or abnormal dilatation to suggest bowel obstruction. There is colonic diverticulosis without acute diverticulitis. The appendix is visualized and is normal. Peritoneum/mesentery/retroperitoneum. No evidence of free intraperitoneal air. No ascites. No evidence of suspicious lymphadenopathy. Abdominal Wall: There are bilateral fat containing inguinal hernias. Vasculature: The visualized abdominal aorta is normal in size and caliber. Evaluation of abdominal and pelvic vessels is limited due to lack of intravenous contrast. Urinary Bladder: Underdistended urinary bladder. There is wall thickening of the urinary bladder. Marshall catheter balloon is noted within the bladder lumen. Pelvic Organs: Unremarkable Musculoskeletal: No aggressive focal bony lesions, acute fractures or dislocation. There is instrumented fusion in the lumbar spine at L4-L5. Soft tissues: There is a stimulator generator in the left lower back. IMPRESSION: 1. Bilateral lower lobe consolidation. 2. Mild bilateral hydroureteronephrosis. No obstructive calculus. Wall thickening of the urinary bladder. Findings are suspicious for cystitis and ascending urinary tract infections. 3. Colonic diverticulosis without acute diverticulitis. SEPSIS Sepsis Screen Date sepsis recognized/suspect: Feb 11, 2025 Time Sepsis recognized/suspect: 08 Recent Procedure: No On Antibiotic Therapy: No Respiratory Rate >20: No Heart Rate >90: No Temp<36 C (96.8 F) or >38.3 C: No SBP <90 or MAP <65 mmHG: No New Acute Mental Status Change: No Is the patient on CPAP, BIPAP,: No Physician Orders Ct Ab Pel Wo Con-No Oral Or Iv (02/11/25 08:37) Sodium Chloride 0.9% (02/11/25 09:45) Sodium Chloride 0.9% (02/11/25 10:30) Sodium Chloride 0.9% (02/11/25 10:30) *[facility] (02/11/25 10:29) Admit (02/11/25 10:34) Code Status (02/11/25 10:34) Ondansetron Hcl (Zofran) (02/11/25 10:45) Docusate Sodium Capsule (Colace Capsule) (02/11/25 10:45) Complete Blood Count (02/12/25 04:00) Comprehensive Metabolic Panel (02/12/25 04:00) Condition: Critical (02/11/25 10:34) Nitroglycerin Sublingual (Ntrostat Subli (02/11/25 10:45) Morphine Sulfate Injection (02/11/25 10:45) Stat Ekg For Chest Pain (02/11/25 10:34) Notify Of Changes From Base (02/11/25 10:34) Bucket Chucker For 24 Hours (02/11/25 10:34) Emergency Dysrhythmia Protocol (02/11/25 10:34) Rhythm Strips Once Every Shift (02/11/25 10:34) Oxygen By Nasal Cannula (02/11/25 10:34) Vital Signs Date Time Temp Pulse Resp B/P (MAP) Pulse Ox O2 Delivery O2 Flow Rate FiO2 02/11/25 08:00 87 14 98 Nasal Cannula* 2 28 02/11/25 08:00 98.2 87 14 134/88 (103) 98 98.2 02/11/25 06:34 87 14 149/89 02/11/25 06:04 86 14 152/86 02/11/25 05:30 90 19 152/83 (106) 99 02/11/25 05:00 91 02/11/25 04:00 90 19 156/63 (94) 91 02/11/25 03:00 88 15 170/98 (122) 96 02/11/25 02:40 82 Laboratory Tests Test 02/10/25 23:41 White Blood Count 9.4 10^3/uL (4.4-10.8) Medications Medications Dose Ordered Sig/Melanie Route Start Time Stop Time Status Last Admin Dose Admin Aspirin 162 mg ONCE ONCE PO 02/11/25 00:00 02/11/25 00:01 DC 02/11/25 00:24 162 MG Morphine Sulfate 4 mg ONCE ONCE IV 02/11/25 00:00 02/11/25 00:01 DC 02/11/25 00:25 4 MG Morphine Sulfate 4 mg ONCE ONCE IV 02/11/25 06:00 02/11/25 06:01 DC 02/11/25 06:04 4 MG Ondansetron HCl 4 mg ONCE ONCE IV 02/11/25 00:00 02/11/25 00:01 DC 02/11/25 00:24 4 MG Assessment/Plan Assessment/Plan Assessment: Acute renal failure, Hyperkalemia, Hyponatremia, Anemia, Plan: Admit to Tele, Nephrology consult, IV hydration, Avoid nephrotoxic drugs, IV Lasix per nephrology, Renal ultrasound, Manage/Monitor electrolytes closely, Possible hemodialysis, Plan discussed with: Patient My Orders Orders - CAROLA RENTERIA Procedure Category Date Status Time Sodium Chloride 0.9% PHA 02/11/25 Logged 10:30 Sodium Chloride 0.9% PHA 02/11/25 Logged 10:30 *[facility] CONS 02/11/25 Transmitted -[place] 10:29 Admit ADMIT 02/11/25 Transmitted 10:34 Code Status CODE 02/11/25 Transmitted 10:34 Ondansetron Hcl PHA 02/11/25 Logged (Zofran) 10:45 Docusate Sodium PHA 02/11/25 Logged Capsule (Colace 10:45 Complete Blood Count LAB 02/12/25 Verified 04:00 Comprehensive LAB 02/12/25 Verified Metabolic Panel 04:00 Condition: Critical THANH 02/11/25 In Process 10:34 Nitroglycerin PHA 02/11/25 Logged Sublingual (Ntrostat 10:45 Morphine Sulfate PHA 02/11/25 Logged Injection 10:45 Stat Ekg For Chest [facility] 02/11/25 In Process Pain 10:34 Notify Md Of Changes [facility] 02/11/25 In Process From Base 10:34 Bucket Chucker For [facility] 02/11/25 In Process 24 Hours 10:34 Emergency Dysrhythmia [facility] 02/11/25 In Process Protocol 10:34 Rhythm Strips Once [facility] 02/11/25 In Process Every Shift 10:34 Oxygen By Nasal RT 02/11/25 Transmitted Cannula 10:34 Date of Service: Feb 11, 2025 Billing Provider: CAROLA RENTERIA AUTOMATIC LATHE SETTER Common Visit Codes: [id number] INP/OBS CARE (HIGH) CAROLA RENTERIA Feb 11, 2025 10:41
--- NOTE | 2025-02-11 12:05 | DVHINCON2 ---
Date of service: Feb 11, 2025 Referring Physician Vaishali Meyers, nurse practitioner Reason for Consultation Acute kidney injury History of Present Illness Patient is 79-year-old male with past medical history significant for hypertension, enlarged prostate, hyperlipidemia and chronic pain is admitted because of substernal chest pain radiating to the back on admission patient found to have elevated BUN creatinine nephrology is consulted for acute kidney injury Past Medical History Hypertension, hyperlipidemia, chronic pain, enlarged prostate Past Surgical History Spine surgery Allergies: Coded Allergies: NO KNOWN ALLERGIES (Unverified , 01/11/23) Home Meds Active Scripts Hydrocodone-Acetaminophen (Hydrocodone Bitartrate/AC 5-325 mg) 1 Tab Tab, 1 TAB PO Q6HPRN PRN, #20 TAB Prov:LEONIDES SIM MD 01/12/23 Reported Medications Docusate Sodium (Docusate Sodium) 100 Mg Cap, 1 CAP PO TID PRN for constipation 01/12/23 Duloxetine HCl (Duloxetine HCl) 30 Mg Cap, 3 CAP PO DAILY 01/12/23 Omeprazole (Omeprazole Dr) 40 Mg Cap, 1 CAP PO DAILY 01/12/23 Alendronate Sodium (Alendronate Sodium) 70 Mg Tab, 1 TAB PO QWEEKLY 01/12/23 Ciprofloxacin Hcl (Ciprofloxacin Hcl) 500 Mg Tab, 1 TAB PO BID 01/12/23 Tamsulosin Hcl (Tamsulosin Hcl) 0.4 Mg Cap, 2 CAP PO DAILY 01/12/23 Ferrous Sulfate (Ferosul) 325 Mg Tab, 1 TAB PO BID 01/12/23 Atorvastatin Calcium (ATORVASTATIN CALCIUM) 40 Mg Tab, 1 TAB PO 01/12/23 Pregabalin (Pregabalin) 150 Mg Cap, 1 CAP PO TID 01/11/23 Trazodone HCl (Trazodone Hydrochorlide) 150 Mg Tab, 1 TAB PO 01/11/23 Current Medications Current Medications Medications (Trade) Dose Ordered Sig/Melanie Route PRN Reason Start Time Stop Time Status Last Admin Sodium Chloride 1,000 ml @ 100 mls/hr Q10H IV 02/11/25 10:30 Ondansetron HCl (Zofran) 4 mg Q4HP PRN IV NAUSEA / VOMITING 02/11/25 10:45 Docusate Sodium (Colace Capsule) 100 mg BIDPRN PRN PO FOR CONSTIPATION 02/11/25 10:45 Nitroglycerin (Ntrostat Sublingual) 0.4 mg Q5MINP PRN SL FOR CHEST PAIN 02/11/25 10:45 Morphine Sulfate 2 mg Q30M PRN IV FOR CHEST PAIN 02/11/25 10:45 Family History: Patient reports no known family medical history. Review of Systems All 12 item review of systems reviewed with the patient nonsignificant except what is mentioned in the history of present illness H&P Exam Vital Signs/I&O Vital Sign Date Time Temp Pulse Resp B/P (MAP) Pulse Ox O2 Delivery O2 Flow Rate FiO2 02/11/25 10:00 86 15 140/80 (100) 97 02/11/25 08:00 Nasal Cannula* 2 28 02/11/25 08:00 98.2 98.2 Intake and Output 02/10/25 02/11/25 19:00 07:00 Output Total 2 ml Balance -2 ml Output Urine Total 2 ml Physical Exam Patient lying comfortably in bed appeared in no acute distress Lungs clear to auscultation bilaterally Cardiac exam regular rate and rhythm GI soft nontender Marshall catheter Extremities no clubbing cyanosis or edema Neuro nonfocal Labs/Diagnostic Data Labs/Diagnostic Data Laboratory Tests Test 02/11/25 00:40 02/10/25 23:41 Range/Units Sodium Level 128 L 136-145 mmol/L Potassium Level 5.5 H 3.5-5.1 mmol/L Chloride Level 94 L 98-107 mmol/L Carbon Dioxide Level 21 20-31 mmol/L Anion Gap 13 5-15 Blood Urea Nitrogen 59 H 9-23 mg/dL Creatinine 8.06 H 0.700-1.30 mg/dL Glomerular Filtration Rate Calc 6 >90 mL/min BUN/Creatinine Ratio 7.3 L 10.0-20.0 Serum Glucose 99 74-106 mg/dL Calcium Level 8.8 8.7-10.4 mg/dL Total Bilirubin 0.4 0.2-1.0 mg/dL Aspartate Amino Transferase (AST) 21 13-40 U/L Alanine Aminotransferase (ALT) 13 7-40 U/L Alkaline Phosphatase 92 46-116 U/L Troponin I High Sensitivity 10 12 </=54 ng/L Total Protein 6.9 5.7-8.2 g/dL Albumin 3.9 3.2-4.8 g/dL White Blood Count 9.4 4.4-10.8 10^3/uL Red Blood Count 3.90 L 4.5-5.90 10^6/uL Hemoglobin 10.9 L 13.5-17.5 g/dL Hematocrit 32.7 L 41.0-53.0 % Mean Corpuscular Volume 83.9 80.0-100.0 fL Mean Corpuscular Hemoglobin 27.9 L 28.0-32.0 pg Mean Corpuscular Hemoglobin Concent 33.2 32.0-36.0 g/dL Red Cell Distribution Width 14.0 11.8-14.3 % Platelet Count 120 L 140-450 10^3/uL Mean Platelet Volume 9.3 6.9-10.8 fL Neutrophils (%) (Auto) 65.1 37.0-80.0 % Lymphocytes (%) (Auto) 22.4 10.0-50.0 % Monocytes (%) (Auto) 7.8 0.0-12.0 % Eosinophils (%) (Auto) 4.4 0.0-7.0 % Basophils (%) (Auto) 0.3 0.0-2.0 % Neutrophils # (Auto) 6.1 1.6-8.6 10 ^3/uL Lymphocytes # (Auto) 2.1 0.4-5.4 10 ^3/uL Monocytes # (Auto) 0.7 0-1.3 10 ^3/uL Eosinophils # (Auto) 0.4 0-0.8 10 ^3/uL Basophils # (Auto) 0 0-0.2 10 ^3/uL Nucleated Red Blood Cells 0.0 % Prothrombin Time 10.6 9.3-11.8 sec Prothrombin Time INR 1.00 0.9-1.15 Activated Partial Thromboplast Time 30.8 24.5-34.5 SEC B-Type Natriuretic Peptide 103.39 0-100 pg/mL Assessment Acute kidney injury superimposed Chronic Kidney Disease secondary obstructive uropathy Bilateral hydronephrosis Enlarged prostate Hyponatremia due to dehydration Hyperkalemia Anemia of chronic kidney disease Chest pain Recommendations Closely monitor fluid and electrolytes Avoid nephrotoxic medications Marshall catheter Strict I&O's I agree with IV fluid hydration Check kidney ultrasound Check urine analysis, electrolytes and protein excretion Furosemide 80 mg IV q.day Renal diet Cardiology consult We will continue to follow Patient seen and examined by myself ER bed 11, I agree I discussed my plan of care with the patient and primary nurse at the bedside I would like to thank Vaishali for the consult, will follow Plan discussed with: Patient HAFSA DOMINGUEZ MD Feb 11, 2025 12:05
[2025-02-11] MEDS: D5W/SOD CHL 0.45% 1,000 ML IV SCH (12:15)
[2025-02-11 12:45] LABS: Hematocrit 33.9 % (41.0-53.0); Hemoglobin 11.1 g/dL (13.5-17.5); Mean Corpuscular Hemoglobin 27.6 pg (28.0-32.0); Mean Corpuscular Volume 84.2 fL (80.0-100.0); Nucleated Red Blood Cells % 0.0 %
[2025-02-11 13:03] LABS: Alanine Aminotransferase 17 U/L (7-40); Albumin 3.8 g/dL (3.2-4.8); Alkaline Phosphatase 91 U/L (46-116); Anion Gap 10 (5-15); BUN/Creatinine Ratio 6.7 (10.0-20.0); Bilirubin, Total 0.4 mg/dL (0.2-1.0); Carbon Dioxide 22 mmol/L (20-31); Glucose 95 mg/dL (74-106); Total Protein 7.0 g/dL (5.7-8.2)
[2025-02-11 13:04] LABS: Blood Urea Nitrogen 58 mg/dL (9-23); Calcium 7.8 mg/dL (8.7-10.4); Chloride 94 mmol/L (98-107); Magnesium 2.8 mg/dL (1.6-2.6); Sodium 126 mmol/L (136-145)
[2025-02-11 13:08] LABS: Potassium 7.4 mmol/L (3.5-5.1)
[2025-02-11] MEDS ORDERED: PATIENTS OWN MEDICATION (Pregabalin 1 CAP) PO SCH (14:00)
[2025-02-11] MEDS: PREGABALIN CAPSULE 75 MG CAP PO SCH (14:10)
[2025-02-11] MEDS: FUROSEMIDE 100 MG/10ML VIAL IV SCH (14:12)
--- NOTE | 2025-02-11 14:56 | DVH ---
INDICATION: tl TECHNIQUE: Multiple real-time sonographic images of the kidneys and bladder were obtained. COMPARISON: US KIDNEY on DOS: 01/11/23 FINDINGS: The right kidney measures 11 cm in length, which is normal in size. There is normal echogenicity of the right kidney. No hydronephrosis. The left kidney measures 11 cm in length, which is normal in size. There is normal echogenicity of the left kidney. No hydronephrosis. 2 cm right renal cyst. Mild bilateral hydronephrosis. IMPRESSION: 1. Normal sonographic appearance of the kidneys. No hydronephrosis.
[2025-02-11 15:47] LABS: Hepatitis B Surface Antigen Negative (Negative); Hepatitis C Antibody Negative (Negative)
[2025-02-11] MEDS: ONDANSETRON HCL 4 MG/2 ML VIAL IV PRN (18:52)
--- NOTE | 2025-02-11 20:28 | ECG ---
[facility] Test Date: 2025-02-11 Test Time: 00:40:59 Pat Name: CAMERON RASHEED Department: Room: 0215T Gender: M Singing Messenger: SINA : 1945 Requested By: HAFSA DOMINGUEZ Order Number: [id number] Reading MD: Yunior Shaver Measurements Intervals [place] Rate: 82 P: 11 NV: 168 QRS: -37 QRSD: 91 T: 42 QT: 364 QTc: 425 Interpretive Statements Sinus rhythm Left axis deviation Borderline low voltage, extremity leads Abnormal R-wave progression, early transition Minimal ST elevation, lateral leads Electronically Signed On 02-16-2025 10:07:30 PST by Yunior Shaver Please click the below link to view image of tracing.
[2025-02-11] MEDS: SODIUM ZIRCONIUM CYCL 10 GM PAK PO SCH (20:56)
[2025-02-11] MEDS: CALCIUM GLUC 1,000mg/50ml-NS 50 ML IV ONE (20:57)
[2025-02-11] MEDS: DEXTROSE (50%) 50ML SYRG IV ONE (20:57)
[2025-02-11] MEDS ORDERED: DEXTROSE (50%) 50ML SYRG IV ONE (21:00)
[2025-02-11] MEDS ORDERED: InsuLIN REG 1unit/0.01ml Soln (100units/ml) IV ONE (21:00)
[2025-02-11] MEDS: InsuLIN REG 1unit/0.01ml Soln (100units/ml) IV ONE (21:04)
[2025-02-11] MEDS: ATORVASTATIN 20 MG TAB PO SCH (23:25)
[2025-02-11] MEDS: FUROSEMIDE 100 MG/10ML VIAL IV ONE (23:28)
[2025-02-11] MEDS: ALBUTEROL SULF 2.5 MG/0.5ML(0.5%) NEB SOLN NEB ONE (23:58)
[2025-02-12] VITALS (41 sets, daily range): BP systolic 91–162; BP diastolic 53–91; PULSE 67–113; RESP 10–21; TEMP 97.4–98.3; O2SAT 90–100
[2025-02-12] MEDS: DEXTROSE (50%) 50ML SYRG IV ONE ×2 (01:42→09:33)
[2025-02-12] MEDS: CALCIUM GLUC 1,000mg/50ml-NS 50 ML IV ONE ×2 (01:42→09:26)
[2025-02-12] MEDS: SODIUM BICARB 8.4% 50Meq/50ml SYR Vial IV ONE (01:43)
[2025-02-12] MEDS: SODIUM BICARB 8.4% 50Meq/50ml SYR INJ ONE (01:43)
[2025-02-12] MEDS: SODIUM ZIRCONIUM CYCL 10 GM PAK PO ONE ×2 (01:48→09:27)
[2025-02-12] MEDS: InsuLIN REG 1unit/0.01ml Soln (100units/ml) IV ONE ×2 (01:54→09:32)
[2025-02-12 05:56] LABS: Hematocrit 31.6 % (41.0-53.0); Hemoglobin 10.4 g/dL (13.5-17.5); Mean Corpuscular Hemoglobin 27.6 pg (28.0-32.0); Mean Corpuscular Volume 84.0 fL (80.0-100.0); Nucleated Red Blood Cells % 0.0 %
[2025-02-12 06:19] LABS: Alanine Aminotransferase 14 U/L (7-40); Alkaline Phosphatase 81 U/L (46-116); Anion Gap 16 (5-15); Carbon Dioxide 22 mmol/L (20-31)
[2025-02-12 06:20] LABS: BUN/Creatinine Ratio 7.9 (10.0-20.0)
[2025-02-12 06:21] LABS: Albumin 3.5 g/dL (3.2-4.8); Total Protein 6.5 g/dL (5.7-8.2)
[2025-02-12 06:23] LABS: Bilirubin, Total 0.3 mg/dL (0.2-1.0); Blood Urea Nitrogen 75 mg/dL (9-23); Calcium 8.5 mg/dL (8.7-10.4); Chloride 91 mmol/L (98-107); Glucose 123 mg/dL (74-106); Potassium 5.5 mmol/L (3.5-5.1); Sodium 129 mmol/L (136-145)
--- NOTE | 2025-02-12 06:36 | ECG ---
[facility] Test Date: 2025-02-12 Test Time: 06:29:27 Pat Name: CAMERON RASHEED Department: Respiratoy Room: 0215T Gender: M Lighting Director: MARCELL : 1945 Requested By: LUBA UGALDE Order Number: [id number] Reading MD: Yunior Shaver Measurements Intervals [place] Rate: 102 P: -6 CA: 171 QRS: -33 QRSD: 96 T: 31 QT: 342 QTc: 446 Interpretive Statements Sinus tachycardia Inferior infarct, old Lateral infarct, acute (LAD) Electronically Signed On 02-16-2025 11:05:19 PST by Yunior Shaver Please click the below link to view image of tracing.
[2025-02-12] MEDS: NITROGLYCERIN 0.4 MG SL TAB SL PRN (06:47)
[2025-02-12] MEDS: MORPHINE SULFATE INJ 2 MG/ml SYRG IV PRN (06:48)
[2025-02-12] MEDS: HEPARIN DRIP/D5W 100UNITS/ML 250 ML IV ONE (06:51)
[2025-02-12] MEDS: ATORVASTATIN 20 MG TAB PO ONE (06:59)
[2025-02-12] MEDS: ANGIOMAX 250 MG VIAL IV ONE (07:01)
[2025-02-12] MEDS: VERAPAMIL 2.5MG/ML INJ 2ML VIAL IV ONE (07:02)
[2025-02-12] MEDS: MIDAZOLAM HCL 2MG/2ML 2ml VIAL (1mg/ml) ONE (07:02)
[2025-02-12] MEDS: SODIUM CHL 0.9% 50 ML ONE (07:02)
[2025-02-12] MEDS: LIDOCAINE 2%HCL (LOCAL ANESTH.) INJ 20ML MDV ONE (07:02)
[2025-02-12] MEDS: fentaNYL CITRATE 100 MCG/2 ML VL ONE (07:02)
[2025-02-12] MEDS: IODIXANOL 320MG/ML 100ML BTL IV ONE (07:03)
[2025-02-12] MEDS: InsuLIN REG 1unit/0.01ml Soln (100units/ml) ONE (07:07)
[2025-02-12] MEDS: HEPARIN SODIUM (PORCINE) 5000 UNITS/ML 1ML VIAL ONE ×2 (07:11→18:25)
[2025-02-12] MEDS: HEPARIN SODIUM (PORCINE) 5000 UNITS/ML 1ML VIAL IV ONE (07:12)
[2025-02-12 07:14] LABS: Hematocrit 32.2 % (41.0-53.0); Hemoglobin 10.7 g/dL (13.5-17.5); Mean Corpuscular Hemoglobin 28.2 pg (28.0-32.0); Mean Corpuscular Volume 84.6 fL (80.0-100.0); Nucleated Red Blood Cells % 0.1 %
--- NOTE | 2025-02-12 07:18 | RESUS ---
CODE ASSIST ASSESSSMENT Initial Information Code Assist Date: Feb 12, 2025 Code Assist Time: 06:20 Location of Arrest: Central Room # 220-[address] Provider Name Dr. Ivy Time Notified: 06:20 Crash Cart Opened and Supplies: No Situation Staff concerned/worried, speci: Other Situation comment: Pt having chest pain. Background Background: Jeffery Nixon is an 79-year-old male with past medial history of hypertension, hyperlipidemia, and BPH, who came to the hospital for chest pain. Patient states he has not been able to urinate or have a bowel movement in 2-3 days. He states he has an appointment to see his provider. He was prompted to come to the hospital today due to the chest pain. While in ER his troponin were negative but labs showed acute kidney failure. Patient was seen here in April with a creatine of 1.4 today his creatine is 8.4 with potassium of 5.5. Patient will be admitted for acute renal failure with nephrology consult. Assessment Temperature (Fahrenheit): 97.4 Blood Pressure Systolic: 134 Blood Pressure Diastolic: 90 Respiratory Rate: 16 O2 Sat by Pulse Oximetry: 96 Assessment comment: CP 10 Recommendations/Interventions Medications and Responses : Medication Time: 06:30 ADULT Medications Given: Nitroglycerin 0.4 mg SL Heart Rate: 107 EKG Rhythm: Atrial Fibrillation Blood Pressure Systolic: 134 Blood Pressure Diastolic: 90 Respiratory Rate: 16 O2 Sat by Pulse Oximetry: 97 Procedures: PT/PTT, Troponin, EKG, Cardiac Monitoring, Inititate ACLS Protocol, O2 Mask/NC Outcome Outcome: Other (transfered to dock or pier laborer) Team Members Team Members Jamey Cleveland RN , Hayley RN, Laura BLOCK CAPTAIN charge, Edward ED charge, Harmony RN, Katelyn RN, WILL Graf RN Feb 12, 2025 07:18
[2025-02-12] MEDS: HEPARIN DRIP/D5W 100UNITS/ML 250 ML IV SCH (07:24)
[2025-02-12 07:30] LABS: INR 1.09 (0.9-1.15); Partial Thromboplastin Time 33.9 SEC (24.5-34.5); Prothrombin Time 11.5 sec (9.3-11.8)
[2025-02-12] MEDS: FUROSEMIDE 20 MG/2 ML VIAL ONE (07:47)
[2025-02-12 08:07] LABS: Prostate Specific Antigen 0.9 ng/mL (0.0-4.0)
--- NOTE | 2025-02-12 08:55 | DVHOP2 ---
Operative Report - 2 Report Details Date: 02/12/25 Preop Diagnosis: Acute ST-elevation myocardial infarction. Postop Diagnosis: Hypertensive cardiovascular disease. Elevated end-diastolic pressures. Surgeon: Juan Manuel Shaver MD Anesthesiologist: Conscious sedation Anesthesia: Mac Consent: The patient was informed of the risks and benefits of the procedure. These include but are not limited to complications of anesthesia, postoperative infection, incomplete relief of symptoms, recurrence of symptoms, damage to blood vessels, nerves and tendons, deep venous thrombosis, pulmonary embolism and possible need for repeat surgery in the future. Complications: No complications Findings: Elevated end-diastolic pressures Indications for Surgery: Chest pain. Abnormal EKG. Name of Procedure Performed Left heart catheterization. Bilateral cine coronary angiography. Left ventriculography. Procedure Details Procedure Details: Anesthesia with 2% lidocaine to the right wrist and full informed consent obtained the patient was prepped and draped in usual fashion followed by placement of a six [place]og[place] sheath into the right radial artery through which a 3.5 EBU guide was then placed and used to perform ventriculography and cannulati on of both right and left coronary ostia without complications. Hemodynamics: Aortic blood pressure was 70/90. End-diastolic pressure was 35mmHg. There was no gradient across the aortic valve on pullback. Coronary anatomy: The RCA is a nondominant vessel it is normal in its proximal mid and distal segments. It gives a few small branches to the inferior septum. There was a septal blush that is normal. The left main is large and normal. Left anterior descending is a large vessel it is normal in its proximal mid and distal segments. The septals and diagonals are normal. The circumflex is a large dominant vessel it gives off the PDA and several posterolateral branches. The circumflex is normal in its entirety. The PDA is normal. Ventriculography in the [place]WAY projection reveals an EF of about 55% with no underlying abnormalities. No valvular pathology delineated. Impression: Markedly elevated left ventricular end-diastolic pressure at rest with normal ejection fraction. Normal coronary vessels. Recommendations: suggest dialysis as soon as possible to relieve intraventricular pressures and continue with risk factor modification. Condition Fair Disposition Still a Patient Date of Service: Feb 12, 2025 Billing Provider: JUAN MANUEL SHAVER Sr., MD Cardiology Common Codes: [id number] INP/OBS CARE (High) Cardiology Procedure Codes: 54575-KISP HEART CATH W/INTRA INJ JUAN MANUEL SHAVER Sr., MD Feb 12, 2025 08:55
--- NOTE | 2025-02-12 08:58 | ECG ---
[facility] Test Date: 2025-02-12 Test Time: 06:27:02 Pat Name: CAMERON RASHEED Department: Respiratoy Room: 0215T Gender: M Screen And Cyclone Repairer: MARCELL : 1945 Requested By: LUBA UGALDE Order Number: [id number] Reading MD: Yunior Shaver Measurements Intervals [place] Rate: 93 P: 0 [place]: 0 QRS: -12 QRSD: 97 T: 19 QT: 336 QTc: 418 Interpretive Statements Atrial flutter/fibrillation Inferior infarct, old Lateral infarct, acute (LAD) Electronically Signed On 02-16-2025 11:05:13 PST by Yunior Shaver Please click the below link to view image of tracing.
--- NOTE | 2025-02-12 08:59 | ECG ---
[facility] Test Date: 2025-02-12 Test Time: 06:31:17 Pat Name: CAMERON RASHEED Department: Respiratoy Room: 0215T Gender: M Validation Software Facilitator: MARCELL : 1945 Requested By: LUBA UGALDE Order Number: [id number] Reading MD: Yunior Shaver Measurements Intervals [place] Rate: 105 P: 0 [place]: 0 QRS: -24 QRSD: 89 T: 39 QT: 330 QTc: 437 Interpretive Statements Atrial fibrillation Borderline left axis deviation Low voltage, extremity leads ST elevation suggests acute pericarditis Electronically Signed On 02-16-2025 11:05:25 PST by Yunior Shaver Please click the below link to view image of tracing.
[2025-02-12] MEDS: ALBUTEROL SULF 2.5 MG/0.5ML(0.5%) NEB SOLN NEB ONE (09:17)
[2025-02-12] MEDS: TAMSULOSIN HYDROCHLORIDE 0.4 MG CAP PO SCH (10:11)
[2025-02-12] MEDS: PREGABALIN CAPSULE 75 MG CAP PO SCH (10:12)
--- NOTE | 2025-02-12 10:24 | DVHPN2 ---
Progress Note Date Seen: Feb 12, 2025 Resident Creating Document: CANDY CULVER RESDIENT Medical Necessity Reason Pt with a Central, PICC or Fol: Yes Subjective Review of Systems Patient seen and examined at the bedside. Patient is seen after left heart catheterization. Due to medication, patient is altered and could not provide proper history. Patient reports: Other (Complain of chest pain) Review of Systems: CVS:Abnormal Other Systems: Patient seen and examined by myself today on rounds with the medicine resident, I agree with the assessment and plan Patient examined hemodialysis, blood pressure stable Objective vital signs Vital Sign Date Time Temp Pulse Resp B/P (MAP) Pulse Ox O2 Delivery O2 Flow Rate FiO2 02/12/25 09:27 79 16 100 02/12/25 09:17 Nasal Cannula* 4 36 02/12/25 07:32 207.3 02/12/25 06:48 134/90 Total Intake and Output 02/11/25 02/11/25 02/12/25 15:00 23:00 07:00 Intake Total 1000 ml 650 ml 100 ml Balance 1000 ml 650 ml 100 ml medications Current Medications Medications Dose Ordered Sig/Melanie Route Start Time Stop Time Status Last Admin Dose Admin Ondansetron HCl 4 mg Q4HP PRN IV 02/11/25 10:45 02/11/25 18:52 4 MG Docusate Sodium 100 mg BIDPRN PRN PO 02/11/25 10:45 Nitroglycerin 0.4 mg Q5MINP PRN SL 02/11/25 10:45 02/12/25 06:47 0.4 MG Morphine Sulfate 2 mg Q30M PRN IV 02/11/25 10:45 02/12/25 06:48 2 MG Dextrose/Sodium Chloride 1,000 ml @ 100 mls/hr Q10H IV 02/11/25 12:15 02/11/25 12:15 100 MLS/HR Furosemide 80 mg DAILY IV 02/11/25 12:15 02/11/25 14:12 80 MG Tamsulosin HCl 0.4 mg DAILY PO 02/12/25 10:00 Patient Own Medication 1 cap TID PO 02/11/25 14:00 UNV Atorvastatin Calcium 40 mg HS PO 02/11/25 22:00 02/11/25 23:25 40 MG Duloxetine HCl 90 mg DAILY PO 02/12/25 10:00 Zirconium Oxide 10 gm Q8H PO 02/11/25 21:00 02/11/25 20:56 10 GM Pregabalin 75 mg DAILY PO 02/12/25 10:00 Heparin Sodium/ Dextrose 250 ml @ 10.56 mls/ hr [id number] IV 02/12/25 06:30 02/12/25 07:24 10.56 MLS/HR Examination General Appearance: Alert, Oriented times 1, in mild respiratory distress HEENT: Atraumatic, PERRLA, EOMI, Mucous membrane moist/pink Respiratory: Bilateral crackles Cardiovascular: Regular rate, Normal S1, Normal S2, No murmurs, no chest wall tenderness Abdominal: Normal bowel sounds, Soft, No tenderness, No hepatospenomegaly, No masses Extremities: Bilateral grade 1 pedal edema Skin: No rashes, No breakdown, No significant lesion Neuro: Normal gait, Normal speech, Strength at 5/5 X4 ext, Normal tone, Sensation intact, Cranial nerves 3-12 NL, Reflexes 2+ Psych/Mental Status: Mental status NL, Mood NL Examination: LUNGS:Normal, CVS:Normal, MSK:Normal laboratory and microbiology Laboratory Tests 02/12/25 06:32 02/12/25 04:30 Test 02/12/25 04:30 Range/Units Serum Glucose 123 H 74-106 mg/dL Labs and/or images reviewed: Labs reviewed by me, Image(s) reviewed by me Problem List/Assessment/Plan Problem List/Assessment/Plan This is a 59-year-old gentleman with a past medical history of hypertension, hyperlipidemia and BPH brought to the hospital due to chest discomfort. Nephrology consulted due to anuria and RAMILA. Acute kidney injury superimposed Chronic Kidney Disease secondary obstructive uropathy Bilateral hydronephrosis Enlarged prostate Hyponatremia due to dehydration Hyperkalemia Anemia of chronic kidney disease Chest pain, normal troponin normal BNP Status post code ST-elevation [place] earlier this a.m. Cardiac catheterization by Dr. Sivakumar martinez earlier today show normal coronaries Status post Shen catheter for urgent hemodialysis * * Plan/Recommendations: (Dr. Dominguez) * Continue with UF 1-2 L as tolerated * Use low K bath * Epogen 4000 subQ 3 times weekly * Hemodialysis again tomorrow * Strict I&O's * I agree with IV fluid hydration * Furosemide 80 mg IV q.day * Kidney ultrasound shows normal appearance of kidneys * CT abdominopelvic shows, mild bilateral hydroureteronephrosis with no obstructive calculus * Renal diet * grievance manager for outpatient hemodialysis chair time at [facility] dialysis * Radiology consult for tunneled IJ hemodialysis catheter and to remove the Shen catheter * We will continue to follow Thank you for giving us the opportunity to take care of your patient. Please call back if you have any questions/concerns. Plan discussed with: Patient, Other (RN) CANDY CULVER Feb 12, 2025 10:24 HAFSA DOMINGUEZ MD Feb 12, 2025 14:03
[2025-02-12 11:14] LABS: Anion Gap 13 (5-15); Carbon Dioxide 23 mmol/L (20-31)
[2025-02-12 11:18] LABS: Chloride 91 mmol/L (98-107); Sodium 127 mmol/L (136-145)
[2025-02-12 11:19] LABS: BUN/Creatinine Ratio 7.8 (10.0-20.0); Blood Urea Nitrogen 76 mg/dL (9-23); Calcium 8.5 mg/dL (8.7-10.4); Glucose 148 mg/dL (74-106); Potassium 5.9 mmol/L (3.5-5.1)
--- NOTE | 2025-02-12 12:26 | DVH ---
CHEST RADIOGRAPH Indication: s/p catheter insertion Technique: XY CHEST XRAY 1 VIEW COMPARISON: None FINDINGS: Right IJ with the catheter tip projects over the SVC. The cardiac silhouette is enlarged. The lungs demonstrate bilateral patchy airspace opacities. The pulmonary vasculature is prominent. Small bilateral pleural. There is no pneumothorax. Thoracic neurostimulator leads IMPRESSION: Cardiomegaly with pulmonary vascular congestion and bilateral patchy airspace opacities. Small bilateral pleural effusions
[2025-02-12] MEDS ORDERED: HEPARIN DRIP/D5W 100UNITS/ML 250 ML IV SCH (14:15)
--- NOTE | 2025-02-12 14:48 | DVHNC2 ---
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 Physician Indication: Other (Dialysis) Room prepared for procedure: Yes Professor Of Pathology performed hand hygien: Yes Maximal sterile barrier precau: Mask/Eye shield, Sterile gown, Cap, Sterlie gloves, Large sterlie drape Skin Preparation: Providine iodine Skin preparation completely dr: Yes Insertion site: Right, Internal jugular Central line catheter type: Dialysis non-tunneled Number of lumens: 2 Central line exchanged over a: No Antiseptic ointment applied to: Yes Post Assessment: Chest X-Ray, Proper placement, No Pneumothorax Informed consent obtained: Yes (Consent by next of kin) Risks/benefits/alt described: Yes Notes ULTRASOUND-GUIDED RIGHT INTERNAL JUGULAR CENTRAL VENOUS CANNULATION CPT Codes: 61067 (ultrasound guidance) 83435 (insertion of non-tunneled centrally inserted central venous catheter) 99935 (CXR interpretation) DATE: 02/12/2025 PHYSICIAN: Sandi Marcelo MD PREOPERATIVE DIAGNOSIS: ESRD dialysis POSTOPERATIVE DIAGNOSIS: ESRD dialysis PROCEDURE PERFORMED: Limited Ultrasound-guided Right internal jugular central line placement. Shen HD dialysis ANESTHESIA: 2 mL of 1% lidocaine plain. ESTIMATED BLOOD LOSS: less than 5 mL. SPECIMENS: None. COMPLICATIONS: None. INDICATIONS FOR PROCEDURE: The patient is in need of large bore IV access for administration of fluids, including blood products and vasoactive drugs, possible transvenous cardiac pacing and CVP monitoring for hemodynamic instability. DESCRIPTION OF PROCEDURE IN DETAIL: The patient was lying in the Trendelenburg position with head turned 30 degrees away from the insertion site. The skin was thoroughly sponged with chlorhexidine and allowed to dry. All persons involved were shielded with hair nets, face masks and sterile gowns. With sterile-gloved hands the right neck area was draped with the large disposable sterile field provided in the pre-manufactured kit. The skin and subcutaneous tissues superficial to the RIGHT internal jugular vein were anesthetized with 2 mL of 1% lidocaine. The RIGHT internal jugular vein was identified on ultrasound from the angle of the mandible down into the supraclavicular fossa using the linear ultrasound probe in the transverse orientation. The carotid artery was identified and avoided utilizing color-flow. The internal jugular vein was then placed in the center of the ultrasound field and compressed for patency. A movement artifact was identified as the needle was advanced through the skin and advanced toward the vessel. A real time hyperechoic signal revealed visualization of vascular needle entry into the lumen as blood was noted to flashback in the syringe. The needle was then held in place while the guide wire was advanced. The needle was then removed. Direct visualization of guide wire location within the vein was noted on ultrasound indicating proper placement and was document in the electronic medical record chart. A skin dilator was advanced over the guidewire and removed, and the triple-lumen catheter was then advanced over the guide wire into proper position. The guide wire was removed and discarded. The ports were aspirated which showed good blood return and then carefully flushed with normal saline. The catheter was stabilized and sutured to the skin with 2-0 silk at 4 anchor points. A sterile bio-patch and dressing was placed over the catheter, including the insertion site. The patient tolerated the procedure well. A chest x-ray was ordered for position confirmation. I reviewed the image immediately after it was taken at bedside. Post-procedure chest x-ray demonstrates the central line in the superior vena and no evidence of any pneumothorax. An image recording of the procedure accompanies the chart. Date of Service: Feb 12, 2025 Billing Provider: SANDI FRANKEL MD Common Visit Codes: PROCEDURE ONLY Procedure Codes: 49517-UGEGTO NON-TUNNEL CV CATH, 80594-SY GUIDE VASCULAR ACCESS SANDI FRANKEL MD Feb 12, 2025 14:48
--- NOTE | 2025-02-12 15:09 | ECG ---
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
--- NOTE | 2025-02-12 15:50 | DVHPN2 ---
Subjective Saw him this morning very lethargic after cath today Reviewed: H&P Changes from previous H/P or p: No Changes Eyes: No Pain, No Vision change, No Conjunctivae inflammation, No Eyelid inflammation, No Other, No Redness ENT: No Ear pain, No Ear discharge, No Nose pain, No Nose discharge, No Nose congestion, No Mouth pain, No Mouth swelling, No Throat pain, No Throat swelling, No Other Cardiovascular: Chest Pain; No Palpitations, No Orthopnea, No Paroxysmal Noc. Dyspnea, No Edema, No Lt Headedness, No Other Respiratory: No Cough, No Dry; Shortness of breath; No SOB with excertion, No Wheezing, No Hemoptysis, No Pleuritic Pain, No Sputum, No Other Gastrointestinal: Nausea; No Vomiting; Abdominal Pain; No Diarrhea, No Constipation, No Melena, No Hematochezia, No Other Genitourinary: No Dysuria, No Frequency, No Incontinence, No Hematuria, No Retention, No Other Musculoskeletal: No other, No neck pain, No shoulder pain, No arm pain, No back pain, No hand pain, No leg pain, No foot pain Skin: No Rash, No Lesions, No Jaundice, No Bruising, No Other Objective Vitals Vital Signs Date Time Temp Pulse Resp B/P (MAP) Pulse Ox O2 Delivery O2 Flow Rate FiO2 02/12/25 15:00 69 15 107/54 (71) 100 02/12/25 09:17 Nasal Cannula* 4 36 02/12/25 08:08 97.9 97.9 Intake/Output Intake and Output 02/12/25 05:00 Intake Total 1750 ml Balance 1750 ml Intake Oral 750 ml IV Total 1000 ml # Voids 1 General Appearance: Alert Cardiovascular: Regular rate, Normal S1, Normal S2 Abdomen: Normal bowel sounds Medications Current Medications Medications Dose Ordered Sig/Melanie Route Start Time Stop Time Status Last Admin Dose Admin Ondansetron HCl 4 mg Q4HP PRN IV 02/11/25 10:45 02/11/25 18:52 4 MG Docusate Sodium 100 mg BIDPRN PRN PO 02/11/25 10:45 Nitroglycerin 0.4 mg Q5MINP PRN SL 02/11/25 10:45 02/12/25 06:47 0.4 MG Morphine Sulfate 2 mg Q30M PRN IV 02/11/25 10:45 02/12/25 06:48 2 MG Dextrose/Sodium Chloride 1,000 ml @ 100 mls/hr Q10H IV 02/11/25 12:15 02/11/25 12:15 100 MLS/HR Furosemide 80 mg DAILY IV 02/11/25 12:15 02/12/25 10:11 80 MG Tamsulosin HCl 0.4 mg DAILY PO 02/12/25 10:00 02/12/25 10:11 0.4 MG Patient Own Medication 1 cap TID PO 02/11/25 14:00 UNV Atorvastatin Calcium 40 mg HS PO 02/11/25 22:00 02/11/25 23:25 40 MG Duloxetine HCl 90 mg DAILY PO 02/12/25 10:00 02/12/25 10:12 90 MG Zirconium Oxide 10 gm Q8H PO 02/11/25 21:00 02/11/25 20:56 10 GM Pregabalin 75 mg DAILY PO 02/12/25 10:00 02/12/25 10:12 75 MG Laboratory Results Laboratory Tests 02/12/25 06:32 02/12/25 10:41 Chemistry Test 02/12/25 04:30 02/12/25 10:41 Albumin 3.5 g/dL (3.2-4.8) Calcium Level 8.5 mg/dL (8.7-10.4) L 8.5 mg/dL (8.7-10.4) L Total Protein 6.5 g/dL (5.7-8.2) Coagulation Test 02/12/25 06:32 Prothrombin Time 11.5 sec (9.3-11.8) Prothrombin Time INR 1.09 (0.9-1.15) Activated Partial Thromboplast Time 33.9 SEC (24.5-34.5) LFT Test 02/12/25 04:30 Alanine Aminotransferase (ALT) 14 U/L (7-40) Alkaline Phosphatase 81 U/L (46-116) Aspartate Amino Transferase (AST) 18 U/L (13-40) Total Bilirubin 0.3 mg/dL (0.2-1.0) HgA1c, TSH Test 02/12/25 06:32 Hemoglobin A1c 5.7 % A1C (<5.7) Assessment/Plan Assessment/Plan Acute renal failure due ATN Hyperkalemia, Hyponatremia, Anemia, Acute metabolic encephalopathy due to electrolyte imbalance Pulmonary edema emergent HD today. I spoke to Dr Hinkle Central line placed IV lasix Monitor BMP q 6 hours Critical care time was 70 minutes Plan discussed with: Patient My Orders Orders - LYNN BASS MD Procedure Category Date Status Time Chest Xray 1 View XY 02/12/25 Resulted 11:09 Date of Service: Feb 12, 2025 Billing Provider: LYNN BASS MD Common Visit Codes: [id number] CARE 30-74 MIN LYNN BASS MD Feb 12, 2025 15:50
[2025-02-12] MEDS: SODIUM CHL 0.9% 1000 ML BAG XX ONE (15:58)
[2025-02-12] MEDS: DOCUSATE SOD 100 MG CAP PO PRN (17:42)
[2025-02-12 19:10] LABS: Potassium 4.9 mmol/L (3.5-5.1)
[2025-02-12 19:11] LABS: Anion Gap 11 (5-15); Carbon Dioxide 26 mmol/L (20-31)
[2025-02-12 19:17] LABS: BUN/Creatinine Ratio 6.2 (10.0-20.0)
[2025-02-12 19:28] LABS: Blood Urea Nitrogen 43 mg/dL (9-23); Chloride 96 mmol/L (98-107); Glucose 114 mg/dL (74-106); Sodium 133 mmol/L (136-145)
[2025-02-12 19:29] LABS: Calcium 8.5 mg/dL (8.7-10.4)
[2025-02-12] MEDS: EPOETIN ALFA-EPBX 10,000 UNIT/1ML VIAL SC ONE (21:33)
[2025-02-13] VITALS (28 sets, daily range): BP systolic 101–151; BP diastolic 53–75; PULSE 85–107; RESP 11–22; TEMP 97.7–98.5; O2SAT 88–99
[2025-02-13 03:37] LABS: Anion Gap 10 (5-15); Carbon Dioxide 28 mmol/L (20-31)
[2025-02-13 03:39] LABS: Hematocrit 27.5 % (41.0-53.0); Hemoglobin 9.2 g/dL (13.5-17.5); Mean Corpuscular Hemoglobin 27.9 pg (28.0-32.0); Mean Corpuscular Volume 83.7 fL (80.0-100.0); Nucleated Red Blood Cells % 0.0 %
[2025-02-13 03:42] LABS: BUN/Creatinine Ratio 7.0 (10.0-20.0)
[2025-02-13 03:51] LABS: Blood Urea Nitrogen 51 mg/dL (9-23); Calcium 8.1 mg/dL (8.7-10.4); Chloride 96 mmol/L (98-107); Glucose 116 mg/dL (74-106); Sodium 134 mmol/L (136-145)
[2025-02-13 03:52] LABS: Potassium 5.6 mmol/L (3.5-5.1)
[2025-02-13] MEDS: DEXTROSE (50%) 50ML SYRG IV ONE (04:45)
[2025-02-13] MEDS: InsuLIN REG 1unit/0.01ml Soln (100units/ml) SC ONE (04:48)
--- NOTE | 2025-02-13 10:08 | DVHPN2 ---
Progress Note Date Seen: Feb 13, 2025 Has the PT tested + for MRSA If YES, has PT been informed?: No Medical Necessity Reason Pt with a Central, PICC or Fol: Yes Subjective Patient reports: No new complaints Changes from previous H/P or p: No Changes Objective vital signs Vital Sign Date Time Temp Pulse Resp B/P (MAP) Pulse Ox O2 Delivery O2 Flow Rate FiO2 02/13/25 04:00 98.3 96 16 127/61 (83) 99 98.3 02/12/25 20:00 Nasal Cannula* 2 28 Total Intake and Output 02/12/25 02/12/25 02/13/25 15:00 23:00 07:00 Intake Total 100 ml Output Total 700 ml Balance -600 ml medications Current Medications Medications Dose Ordered Sig/Melanie Route Start Time Stop Time Status Last Admin Dose Admin Ondansetron HCl 4 mg Q4HP PRN IV 02/11/25 10:45 02/11/25 18:52 4 MG Docusate Sodium 100 mg BIDPRN PRN PO 02/11/25 10:45 02/12/25 17:42 100 MG Nitroglycerin 0.4 mg Q5MINP PRN SL 02/11/25 10:45 02/12/25 06:47 0.4 MG Morphine Sulfate 2 mg Q30M PRN IV 02/11/25 10:45 02/12/25 06:48 2 MG Furosemide 80 mg DAILY IV 02/11/25 12:15 02/12/25 10:11 80 MG Tamsulosin HCl 0.4 mg DAILY PO 02/12/25 10:00 02/12/25 10:11 0.4 MG Patient Own Medication 1 cap TID PO 02/11/25 14:00 UNV Atorvastatin Calcium 40 mg HS PO 02/11/25 22:00 02/12/25 22:54 40 MG Duloxetine HCl 90 mg DAILY PO 02/12/25 10:00 02/12/25 10:12 90 MG Zirconium Oxide 10 gm Q8H PO 02/11/25 21:00 02/13/25 04:46 10 GM Pregabalin 75 mg DAILY PO 02/12/25 10:00 02/12/25 10:12 75 MG Examination: GENERAL:Normal, HEENT:Normal, NECK:Normal, LUNGS:Abnormal (Decreased breath sounds bilaterally lower lung lopez), CVS:Normal, ABDOMEN:Normal, MSK:Abnormal (Lower leg edema) laboratory and microbiology Laboratory Tests 02/13/25 03:09 Test 02/13/25 03:09 Range/Units Serum Glucose 116 H 74-106 mg/dL Problem List/Assessment/Plan Problem List/Assessment/Plan Acute renal failure due ATN Hyperkalemia, Hyponatremia, Anemia, Acute STEMI Acute metabolic encephalopathy due to electrolyte imbalance Pulmonary edema Hemodialysis per Nephrology. Radiology consult for Tylenol hemodialysis catheter and remove Shen catheter 80 mg IV Lasix q.day Fluid restriction Strict in and out Cardiac catheterization shows increased left ventricular pressure. No coronary artery stenosis Monitor saturation Plan discussed with: Patient Date of Service: Feb 13, 2025 Billing Provider: FLO RASHEED MD Common Visit Codes: 31650-NUM/OBS SAME DATE (HIGH) FLO RASHEED MD Feb 13, 2025 10:08
--- NOTE | 2025-02-13 10:17 | DVHPN2 ---
Progress Note Date Seen: Feb 13, 2025 Has the PT tested + for MRSA If YES, has PT been informed?: No Medical Necessity Reason Pt with a Central, PICC or Fol: Yes Subjective Patient reports: No new complaints Other Systems: Patient seen and examined by myself today in follow-up Patient examined hemodialysis, blood pressure stable Objective vital signs Vital Sign Date Time Temp Pulse Resp B/P (MAP) Pulse Ox O2 Delivery O2 Flow Rate FiO2 02/13/25 04:00 98.3 96 16 127/61 (83) 99 98.3 02/12/25 20:00 Nasal Cannula* 2 28 Total Intake and Output 02/12/25 02/12/25 02/13/25 14:59 22:59 06:59 Intake Total 100 ml Output Total 700 ml Balance -600 ml medications Current Medications Medications Dose Ordered Sig/Melanie Route Start Time Stop Time Status Last Admin Dose Admin Ondansetron HCl 4 mg Q4HP PRN IV 02/11/25 10:45 02/11/25 18:52 4 MG Docusate Sodium 100 mg BIDPRN PRN PO 02/11/25 10:45 02/12/25 17:42 100 MG Nitroglycerin 0.4 mg Q5MINP PRN SL 02/11/25 10:45 02/12/25 06:47 0.4 MG Morphine Sulfate 2 mg Q30M PRN IV 02/11/25 10:45 02/12/25 06:48 2 MG Furosemide 80 mg DAILY IV 02/11/25 12:15 02/12/25 10:11 80 MG Tamsulosin HCl 0.4 mg DAILY PO 02/12/25 10:00 02/12/25 10:11 0.4 MG Patient Own Medication 1 cap TID PO 02/11/25 14:00 UNV Atorvastatin Calcium 40 mg HS PO 02/11/25 22:00 02/12/25 22:54 40 MG Duloxetine HCl 90 mg DAILY PO 02/12/25 10:00 02/12/25 10:12 90 MG Zirconium Oxide 10 gm Q8H PO 02/11/25 21:00 02/13/25 04:46 10 GM Pregabalin 75 mg DAILY PO 02/12/25 10:00 02/12/25 10:12 75 MG Examination: LUNGS:Normal, CVS:Normal, MSK:Normal laboratory and microbiology Laboratory Tests 02/13/25 03:09 Test 02/13/25 03:09 Range/Units Serum Glucose 116 H 74-106 mg/dL Problem List/Assessment/Plan Problem List/Assessment/Plan This is a 59-year-old gentleman with a past medical history of hypertension, hyperlipidemia and BPH brought to the hospital due to chest discomfort. Nephrology consulted due to anuria and RAMILA. Acute kidney injury superimposed Chronic Kidney Disease secondary obstructive uropathy Bilateral hydronephrosis Hyponatremia due to excess H2O Hyperkalemia Anemia of chronic kidney disease Chest pain, normal troponin normal BNP Status post code ST-elevation [place] earlier this a.m. Cardiac catheterization by Dr. Sivakumar martinez earlier today show normal coronaries Status post Shen catheter for urgent hemodialysis Hyperphosphatemia Recommendations * Continue with UF 1-2 L as tolerated * Use low K bath * Epogen 10,000 subQ 3 times weekly * Strict I&O's * Fluid restriction * Furosemide 80 mg IV q.day * Calcium acetate 667 mg p.o. t.i.d. with meals * Lokelma 10 gm po * CT abdominopelvic shows, mild bilateral hydroureteronephrosis with no obstructive calculus * Renal diet * clinical education manager for outpatient hemodialysis chair time at [facility] * Radiology consult for tunneled IJ hemodialysis catheter and to remove the Shen catheter * We will continue to follow Plan discussed with: Patient My Orders My Orders Orders - HAFSA DOMINGUEZ MD Procedure Category Date Status Time Dialysis Nursing THANH 02/13/25 In Process Message 07:00 Document Fluid Input THANH 02/13/25 In Process And Outpu 07:00 Epoetin Carlos-Epbx PHA 02/13/25 In Process (Retacrit) 21:00 Communication Order ORDERS 02/12/25 Transmitted 18:38 Type And Screen BBK 02/13/25 Logged 09:59 Hemodialysis Orders ORDERS 02/13/25 Transmitted 10:07 Creatine Kinase LAB 02/13/25 Logged 10:07 HAFSA DOMINGUEZ MD Feb 13, 2025 10:17
--- NOTE | 2025-02-13 11:12 | DVH ---
CHEST RADIOGRAPH Indication: fluid overload Technique: XY CHEST XRAY 1 VIEW COMPARISON: None FINDINGS: Right IJ catheter tip projects over the SVC. The cardiac silhouette is enlarged. The lungs demonstrate bilateral patchy airspace opacities. The pulmonary vasculature is prominent. Small bilateral pleural effusion. There is no pneumothorax. Thoracic neurostimulator leads. IMPRESSION: Cardiomegaly with pulmonary vascular congestion and bilateral patchy airspace opacities. Small bilateral pleural effusions
[2025-02-13 12:42] LABS: Protein, Urine 7.3 mg/dL (1-14)
[2025-02-13 12:51] LABS: Urine Protein, UAD Negative (Negative)
[2025-02-13] MEDS: TAMSULOSIN HYDROCHLORIDE 0.4 MG CAP PO SCH (17:58)
[2025-02-13] MEDS: EPOETIN ALFA-EPBX 4,000 UNIT/ML VIAL SC ONE (22:25)
[2025-02-14] VITALS (9 sets, daily range): BP systolic 110–164; BP diastolic 74–99; PULSE 81–98; RESP 17–18; TEMP 97.7–98.4; O2SAT 95–100
[2025-02-14 05:45] LABS: Hematocrit 29.5 % (41.0-53.0); Hemoglobin 9.9 g/dL (13.5-17.5); Mean Corpuscular Hemoglobin 27.9 pg (28.0-32.0); Mean Corpuscular Volume 82.9 fL (80.0-100.0); Nucleated Red Blood Cells % 0.1 %
[2025-02-14 06:05] LABS: Anion Gap 11 (5-15); Carbon Dioxide 30 mmol/L (20-31); Chloride 98 mmol/L (98-107); Potassium 3.6 mmol/L (3.5-5.1); Sodium 139 mmol/L (136-145)
[2025-02-14 06:10] LABS: Calcium 8.5 mg/dL (8.7-10.4)
[2025-02-14 06:12] LABS: BUN/Creatinine Ratio 9.5 (10.0-20.0)
[2025-02-14 06:19] LABS: Blood Urea Nitrogen 36 mg/dL (9-23); Glucose 108 mg/dL (74-106)
[2025-02-14] MEDS: hydrALAZINE HCL 20 MG/ML VL IV ONE (07:14)
--- NOTE | 2025-02-14 11:00 | DVHPN2 ---
Progress Note Date Seen: Feb 14, 2025 Has the PT tested + for MRSA If YES, has PT been informed?: No Medical Necessity Reason Pt with a Central, PICC or Fol: Yes Subjective Patient reports: No new complaints Other Systems: Patient seen and examined by myself today in follow-up Objective vital signs Vital Sign Date Time Temp Pulse Resp B/P (MAP) Pulse Ox O2 Delivery O2 Flow Rate FiO2 02/14/25 10:21 146/99 02/14/25 09:00 98.0 92 17 100 98.0 02/13/25 20:00 Nasal Cannula* 2 28 Total Intake and Output 02/13/25 02/13/25 02/14/25 15:00 23:00 07:00 Intake Total 390 ml 550 ml Output Total 675 ml 1750 ml Balance -285 ml -1200 ml medications Current Medications Medications Dose Ordered Sig/Melanie Route Start Time Stop Time Status Last Admin Dose Admin Docusate Sodium 100 mg BIDPRN PRN PO 02/11/25 10:45 02/12/25 17:42 100 MG Patient Own Medication 1 cap TID PO 02/11/25 14:00 UNV Atorvastatin Calcium 40 mg HS PO 02/11/25 22:00 02/13/25 22:25 40 MG Duloxetine HCl 90 mg DAILY PO 02/12/25 10:00 02/14/25 10:23 90 MG Pregabalin 75 mg DAILY PO 02/12/25 10:00 02/14/25 10:23 75 MG Tamsulosin HCl 0.4 mg DAILY PO 02/13/25 18:00 02/14/25 10:23 0.4 MG Furosemide 40 mg DAILY IV 02/15/25 10:00 Examination: LUNGS:Normal, CVS:Normal, MSK:Normal laboratory and microbiology Laboratory Tests 02/14/25 04:29 Test 02/14/25 04:29 Range/Units Serum Glucose 108 H 74-106 mg/dL Microbiology Date/Time Source Procedure Growth Status 02/12/25 16:46 Nose MRSA Screen - Final Complete Problem List/Assessment/Plan Problem List/Assessment/Plan This is a 59-year-old gentleman with a past medical history of hypertension, hyperlipidemia and BPH brought to the hospital due to chest discomfort. Nephrology consulted due to anuria and RAMILA. Acute kidney injury superimposed Chronic Kidney Disease secondary obstructive uropathy Bilateral hydronephrosis Hyponatremia due to excess H2O Hyperkalemia Anemia of chronic kidney disease Chest pain, normal troponin normal BNP Status post code ST-elevation [place] earlier this a.m. Cardiac catheterization by Dr. Sivakumar martniez earlier today show normal coronaries Status post Shen catheter for urgent hemodialysis Hyperphosphatemia Recommendations * Increased urine output * Watch for renal recovery * Epogen 10,000 subQ 3 times weekly * Strict I&O's * Fluid restriction * Furosemide 80 mg IV q.day * Calcium acetate 667 mg p.o. t.i.d. with meals * Hyperkalemia resolved * CT abdominopelvic shows, mild bilateral hydroureteronephrosis with no obstructive calculus * Renal diet * wholesale account manager for outpatient hemodialysis chair time at [facility] dialysis * Radiology consult for tunneled IJ hemodialysis catheter and to remove the Shen catheter * We will continue to follow Plan discussed with: Patient HAFSA DOMINGUEZ MD Feb 14, 2025 11:00
--- NOTE | 2025-02-14 11:00 | DVHPN2 ---
Subjective episodic dry cough/ no sputum/no chest pain/no other complaints Reviewed: H&P Changes from previous H/P or p: No Changes Eyes: No Pain, No Vision change, No Conjunctivae inflammation, No Eyelid inflammation, No Other, No Redness ENT: No Ear pain, No Ear discharge, No Nose pain, No Nose discharge, No Nose congestion, No Mouth pain, No Mouth swelling, No Throat pain, No Throat swelling, No Other Cardiovascular: Chest Pain; No Palpitations, No Orthopnea, No Paroxysmal Noc. Dyspnea, No Edema, No Lt Headedness, No Other Respiratory: No Cough, No Dry; Shortness of breath; No SOB with excertion, No Wheezing, No Hemoptysis, No Pleuritic Pain, No Sputum, No Other Gastrointestinal: Nausea; No Vomiting; Abdominal Pain; No Diarrhea, No Constipation, No Melena, No Hematochezia, No Other Genitourinary: No Dysuria, No Frequency, No Incontinence, No Hematuria, No Retention, No Other Musculoskeletal: No other, No neck pain, No shoulder pain, No arm pain, No back pain, No hand pain, No leg pain, No foot pain Skin: No Rash, No Lesions, No Jaundice, No Bruising, No Other Objective Vitals Vital Signs Date Time Temp Pulse Resp B/P (MAP) Pulse Ox O2 Delivery O2 Flow Rate FiO2 02/14/25 10:21 146/99 02/14/25 09:00 98.0 92 17 100 98.0 02/13/25 20:00 Nasal Cannula* 2 28 Intake/Output Intake and Output 02/14/25 07:00 Intake Total 940 ml Output Total 2425 ml Balance -1485 ml Intake Oral 940 ml Output Urine Total 2425 ml # Bowel Movements 1 General Appearance: Alert, Oriented X3, Cooperative, No acute distress Lungs: Clear to auscultation Cardiovascular: Regular rate, Normal S1, Normal S2 Abdomen: Normal bowel sounds Neuro: Normal speech, Strength at 5/5 X4 ext, Normal tone, Sensation intact, C ranial nerves 3-12 NL Psych/Mental Status: Mental status NL, Mood NL Medications Current Medications Medications Dose Ordered Sig/Melanie Route Start Time Stop Time Status Last Admin Dose Admin Ondansetron HCl 4 mg Q4HP PRN IV 02/11/25 10:45 02/11/25 18:52 4 MG Docusate Sodium 100 mg BIDPRN PRN PO 02/11/25 10:45 02/12/25 17:42 100 MG Nitroglycerin 0.4 mg Q5MINP PRN SL 02/11/25 10:45 02/12/25 06:47 0.4 MG Morphine Sulfate 2 mg Q30M PRN IV 02/11/25 10:45 02/12/25 06:48 2 MG Furosemide 80 mg DAILY IV 02/11/25 12:15 02/14/25 10:21 80 MG Patient Own Medication 1 cap TID PO 02/11/25 14:00 UNV Atorvastatin Calcium 40 mg HS PO 02/11/25 22:00 02/13/25 22:25 40 MG Duloxetine HCl 90 mg DAILY PO 02/12/25 10:00 02/14/25 10:23 90 MG Zirconium Oxide 10 gm Q8H PO 02/11/25 21:00 02/14/25 05:15 10 GM Pregabalin 75 mg DAILY PO 02/12/25 10:00 02/14/25 10:23 75 MG Tamsulosin HCl 0.4 mg DAILY PO 02/13/25 18:00 02/14/25 10:23 0.4 MG Laboratory Results Laboratory Tests 02/14/25 04:29 Chemistry Test 02/14/25 04:29 Calcium Level 8.5 mg/dL (8.7-10.4) L Urinalysis Test 02/13/25 12:14 Urine Color Colorless (Yellow) Urine Clarity Clear (Clear) Urine pH 6.5 (5.0-9.0) Urine Specific [place] 1.006 (1.001-1.035) Urine Protein Negative (Negative) Urine Ketones Negative (Negative) Urine Blood 3+ /uL (Negative) H Urine Nitrite Negative (Negative) Urine Bilirubin Negative (Negative) Urine Urobilinogen Normal mg/dL (Negative) Urine Leukocyte Esterase 1+ /uL (Negative) Urine RBC 173 /hpf (0 - 3) Urine Microscopic WBC 10 /HPF (0-3) H Urine Squamous Epithelial Cells None seen /hpf (<5) Urine Bacteria Few /hpf (None Seen) H Urine Hyaline Casts Few /lpf (0 - 2) Urine Creatinine 15.16 mg/dL (30.0-125.0) L Urine Protein/Creatinine Ratio 0.48 Urine Sodium 107 mmol/L (40-220) Urine Glucose Normal mg/dL (Normal) Urine Total Protein 7.3 mg/dL (1-14) Microbiology Microbiology Date/Time Source Procedure Growth Status 02/12/25 16:46 Nose MRSA Screen - Final Complete Labs and/or images reviewed: Labs reviewed by me, Image(s) reviewed by me Assessment/Plan Assessment/Plan acute renal failure secondary to obstructive uropathy- and contrast nephropathy- ? indication for angio on 02/12/25 will be addressed with cardiology-/code team had dialysis two days in a row/ clarified with nephrology and clarified with patient nurse ariane of this- chf due to above- improved with lasix h/o back fusion H/O TURP IN 2019 PER PT H/O CIRCUMCISION IN 2022 FOR PHIMOSIS PER RECORDS Plan discussed with: Patient, Other My Orders Orders - YVETTE HARGROVE MD Procedure Category Date Status Time Furosemide Injection PHA 02/15/25 Logged (Lasix Injection) 10:00 Date of Service: Feb 14, 2025 Billing Provider: YVETTE HARGROVE MD Common Visit Codes: [id number] INP/OBS CARE(MOD) YVETTE HARGROVE MD Feb 14, 2025 11:00
[2025-02-14] MEDS: hydrALAZINE HCL 20 MG/ML VL IV PRN (13:00)
[2025-02-14] MEDS: SODIUM CHL 0.9% 1000 ML BAG XX ONE (17:26)
[2025-02-15] VITALS (8 sets, daily range): BP systolic 140–160; BP diastolic 7–85; PULSE 72–99; RESP 16–19; TEMP 97.3–98.2; O2SAT 90–98
[2025-02-15] MEDS: ACETAMINOPHEN 325 MG TAB PO PRN (00:26)
[2025-02-15 05:43] LABS: Hematocrit 28.8 % (41.0-53.0); Hemoglobin 9.7 g/dL (13.5-17.5); Mean Corpuscular Hemoglobin 27.7 pg (28.0-32.0); Mean Corpuscular Volume 82.5 fL (80.0-100.0); Nucleated Red Blood Cells % 0.2 %
[2025-02-15 05:51] LABS: Chloride 103 mmol/L (98-107); Sodium 142 mmol/L (136-145)
[2025-02-15 05:53] LABS: Anion Gap 5 (5-15)
[2025-02-15 05:58] LABS: BUN/Creatinine Ratio 10.2 (10.0-20.0); Glucose 103 mg/dL (74-106)
[2025-02-15 06:21] LABS: Blood Urea Nitrogen 32 mg/dL (9-23); Calcium 8.3 mg/dL (8.7-10.4); Carbon Dioxide 34 mmol/L (20-31); Potassium 3.3 mmol/L (3.5-5.1)
--- NOTE | 2025-02-15 09:09 | DVHPN2 ---
Subjective episodic dry cough/ no sputum/no chest pain/no other complaints /had left sided back pain yesterday resolved on own Reviewed: H&P Changes from previous H/P or p: No Changes Eyes: No Pain, No Vision change, No Conjunctivae inflammation, No Eyelid inflammation, No Other, No Redness ENT: No Ear pain, No Ear discharge, No Nose pain, No Nose discharge, No Nose congestion, No Mouth pain, No Mouth swelling, No Throat pain, No Throat swelling, No Other Cardiovascular: Chest Pain; No Palpitations, No Orthopnea, No Paroxysmal Noc. Dyspnea, No Edema, No Lt Headedness, No Other Respiratory: No Cough, No Dry; Shortness of breath; No SOB with excertion, No Wheezing, No Hemoptysis, No Pleuritic Pain, No Sputum, No Other Gastrointestinal: Nausea; No Vomiting; Abdominal Pain; No Diarrhea, No Constipation, No Melena, No Hematochezia, No Other Genitourinary: No Dysuria, No Frequency, No Incontinence, No Hematuria, No Retention, No Other Musculoskeletal: No other, No neck pain, No shoulder pain, No arm pain, No back pain, No hand pain, No leg pain, No foot pain Skin: No Rash, No Lesions, No Jaundice, No Bruising, No Other Objective Vitals Vital Signs Date Time Temp Pulse Resp B/P (MAP) Pulse Ox O2 Delivery O2 Flow Rate FiO2 02/15/25 05:00 97.5 83 17 145/7 (53) 96 97.5 02/14/25 20:00 Nasal Cannula* 2 28 Intake/Output Intake and Output 02/15/25 07:00 Intake Total 450 ml Output Total 3100 ml Balance -2650 ml Intake Oral 450 ml Output Urine Total 3100 ml # Bowel Movements 1 General Appearance: Alert, Oriented X3, Cooperative, No acute distress Lungs: Clear to auscultation Cardiovascular: Regular rate, Normal S1, Normal S2 Abdomen: Normal bowel sounds Neuro: Normal speech, Strength at 5/5 X4 ext, Normal tone, Sensation intact, C ranial nerves 3-12 NL Psych/Mental Status: Mental status NL, Mood NL Medications Current Medications Medications Dose Ordered Sig/Melanie Route Start Time Stop Time Status Last Admin Dose Admin Docusate Sodium 100 mg BIDPRN PRN PO 02/11/25 10:45 02/14/25 21:22 100 MG Patient Own Medication 1 cap TID PO 02/11/25 14:00 UNV Atorvastatin Calcium 40 mg HS PO 02/11/25 22:00 02/14/25 21:22 40 MG Duloxetine HCl 90 mg DAILY PO 02/12/25 10:00 02/14/25 10:23 90 MG Pregabalin 75 mg DAILY PO 02/12/25 10:00 02/14/25 10:23 75 MG Tamsulosin HCl 0.4 mg DAILY PO 02/13/25 18:00 02/14/25 10:23 0.4 MG Furosemide 40 mg DAILY IV 02/15/25 10:00 Hydralazine HCl 10 mg Q6HP PRN IV 02/14/25 12:30 02/14/25 13:00 10 MG Acetaminophen 500 mg Q6HP PRN PO 02/15/25 00:15 02/15/25 00:26 500 MG Laboratory Results Laboratory Tests 02/15/25 05:04 Chemistry Test 02/15/25 05:04 Calcium Level 8.3 mg/dL (8.7-10.4) L Phosphorus Level 3.1 mg/dL (2.4-5.1) Urinalysis Test 02/13/25 12:14 Urine Color Colorless (Yellow) Urine Clarity Clear (Clear) Urine pH 6.5 (5.0-9.0) Urine Specific [place] 1.006 (1.001-1.035) Urine Protein Negative (Negative) Urine Ketones Negative (Negative) Urine Blood 3+ /uL (Negative) H Urine Nitrite Negative (Negative) Urine Bilirubin Negative (Negative) Urine Urobilinogen Normal mg/dL (Negative) Urine Leukocyte Esterase 1+ /uL (Negative) Urine RBC 173 /hpf (0 - 3) Urine Microscopic WBC 10 /HPF (0-3) H Urine Squamous Epithelial Cells None seen /hpf (<5) Urine Bacteria Few /hpf (None Seen) H Urine Hyaline Casts Few /lpf (0 - 2) Urine Creatinine 15.16 mg/dL (30.0-125.0) L Urine Protein/Creatinine Ratio 0.48 Urine Sodium 107 mmol/L (40-220) Urine Glucose Normal mg/dL (Normal) Urine Total Protein 7.3 mg/dL (1-14) Microbiology Microbiology Date/Time Source Procedure Growth Status 02/12/25 16:46 Nose MRSA Screen - Final Complete Labs and/or images reviewed: Labs reviewed by me, Image(s) reviewed by me Assessment/Plan Assessment/Plan acute renal failure secondary to obstructive uropathy- and contrast nephropathy- ? indication for angio on 02/12/25 will be addressed with cardiology-/code team had dialysis two days in a row/ clarified with nephrology and clarified with patient nurse ariane of this- chf due to above- improved with lasix h/o back fusion H/O TURP IN 2019 PER PT H/O CIRCUMCISION IN 2022 FOR PHIMOSIS PER RECORDS sign off note- CLINICALLY LOOKS LIKE OBSTRUCTIVE UROPATHY- PATIENT MAKING GOOD URINE- AND GFR IMPROVING- IF ALVARADO IS DC MAKE SURE NO RETENTION AND DOES NOT NEED REINSERTION BEFORE DC- EDUCATED PATIENT ON THIS gfr may take few weeks to stabilize due to associated contrast injury- doubt need for usp dialyis- /discharging physician //pcp/utility person to PLEASE keep this in mind Plan discussed with: Patient, Other My Orders Orders - YVETTE HARGROVE MD Procedure Category Date Status Time Furosemide Injection PHA 02/15/25 In Process (Lasix Injection) 10:00 Hydralazine Injection PHA 02/14/25 In Process (Apresoline Inject 12:30 Potassium Er Tablet PHA 02/15/25 Transmitted (Klor-Con Tablet) 09:00 Date of Service: Feb 15, 2025 Billing Provider: YVETTE HARGROVE MD Common Visit Codes: [id number] INP/OBS CARE(MOD) YVETTE HARGROVE MD Feb 15, 2025 09:09
[2025-02-15] MEDS: POTASSIUM CHLORIDE 8 MEQ TAB PO ONE (09:41)
--- NOTE | 2025-02-15 10:35 | DVHPN2 ---
Progress Note Date Seen: Feb 15, 2025 Has the PT tested + for MRSA If YES, has PT been informed?: No Medical Necessity Reason Pt with a Central, PICC or Fol: No Subjective Patient reports: No new complaints Other Systems: Patient seen and examined by myself today in follow-up Patient examined hemodialysis, blood pressure stable Objective vital signs Vital Sign Date Time Temp Pulse Resp B/P (MAP) Pulse Ox O2 Delivery O2 Flow Rate FiO2 02/15/25 05:00 97.5 83 17 145/7 (53) 96 97.5 02/14/25 20:00 Nasal Cannula* 2 28 Total Intake and Output 02/14/25 02/14/25 02/15/25 15:00 23:00 07:00 Intake Total 150 ml 300 ml Output Total 2200 ml 900 ml Balance -2050 ml -600 ml medications Current Medications Medications Dose Ordered Sig/Melanie Route Start Time Stop Time Status Last Admin Dose Admin Docusate Sodium 100 mg BIDPRN PRN PO 02/11/25 10:45 02/14/25 21:22 100 MG Patient Own Medication 1 cap TID PO 02/11/25 14:00 UNV Atorvastatin Calcium 40 mg HS PO 02/11/25 22:00 02/14/25 21:22 40 MG Duloxetine HCl 90 mg DAILY PO 02/12/25 10:00 02/15/25 09:41 90 MG Pregabalin 75 mg DAILY PO 02/12/25 10:00 02/15/25 09:41 75 MG Tamsulosin HCl 0.4 mg DAILY PO 02/13/25 18:00 02/15/25 09:41 0.4 MG Furosemide 40 mg DAILY IV 02/15/25 10:00 Hydralazine HCl 10 mg Q6HP PRN IV 02/14/25 12:30 02/14/25 13:00 10 MG Acetaminophen 500 mg Q6HP PRN PO 02/15/25 00:15 02/15/25 00:26 500 MG Examination: LUNGS:Normal, CVS:Normal, MSK:Normal laboratory and microbiology Laboratory Tests 02/15/25 05:04 Test 02/15/25 05:04 Range/Units Serum Glucose 103 74-106 mg/dL Microbiology Date/Time Source Procedure Growth Status 02/12/25 16:46 Nose MRSA Screen - Final Complete Problem List/Assessment/Plan Problem List/Assessment/Plan This is a 59-year-old gentleman with a past medical history of hypertension, hyperlipidemia and BPH brought to the hospital due to chest discomfort. Nephrology consulted due to anuria and RAMILA. Acute kidney injury superimposed Chronic Kidney Disease secondary obstructive uropathy Bilateral hydronephrosis Hyponatremia due to excess H2O Hyperkalemia Anemia of chronic kidney disease Chest pain, normal troponin normal BNP Status post code ST-elevation IN earlier this a.m. Cardiac catheterization by Dr. Sivakumar martinez earlier today show normal coronaries Status post Shen catheter for urgent hemodialysis Hyperphosphatemia Hypokalemia Recommendations * Continue with UF 1 L as tolerated * Epogen 10,000 subQ 3 times weekly * Strict I&O's * Fluid restriction * Furosemide 40 mg IV q.day * KCL replacement * Calcium acetate 667 mg p.o. t.i.d. 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
[2025-02-15] MEDS: FUROSEMIDE 100 MG/10ML VIAL IV SCH (10:46)
[2025-02-15] MEDS: SODIUM CHL 0.9% 1000 ML BAG XX ONE (13:13)
[2025-02-15] MEDS: EPOETIN ALFA-EPBX 10,000 UNIT/1ML VIAL SC ONE (20:51)
[2025-02-16] VITALS (12 sets, daily range): BP systolic 147–167; BP diastolic 68–90; PULSE 74–96; RESP 15–20; TEMP 97.5–99.1; O2SAT 93–98
[2025-02-16 06:49] LABS: Hematocrit 29.9 % (41.0-53.0); Hemoglobin 10.1 g/dL (13.5-17.5); Mean Corpuscular Hemoglobin 28.2 pg (28.0-32.0); Mean Corpuscular Volume 83.2 fL (80.0-100.0); Nucleated Red Blood Cells % 0.0 %
[2025-02-16 07:02] LABS: Anion Gap 11 (5-15); Chloride 100 mmol/L (98-107); Sodium 142 mmol/L (136-145)
[2025-02-16 07:09] LABS: BUN/Creatinine Ratio 6.9 (10.0-20.0); Blood Urea Nitrogen 15 mg/dL (9-23)
[2025-02-16 07:11] LABS: Calcium 8.4 mg/dL (8.7-10.4); Carbon Dioxide 31 mmol/L (20-31); Glucose 111 mg/dL (74-106); Potassium 3.1 mmol/L (3.5-5.1)
[2025-02-16] MEDS: FUROSEMIDE 40 MG/4 ML VIAL IV SCH (10:00)
[2025-02-16] MEDS: HEPARIN SODIUM (PORCINE) 5000 UNITS/ML 1ML VIAL ONE (10:15)
[2025-02-16] MEDS: LIDOCAINE 2%HCL (LOCAL ANESTH.) INJ 20ML MDV ONE (10:16)
[2025-02-16] MEDS: fentaNYL CITRATE 100 MCG/2 ML VL ONE (10:16)
[2025-02-16] MEDS: MIDAZOLAM HCL 2MG/2ML 2ml VIAL (1mg/ml) ONE (10:16)
--- NOTE | 2025-02-16 10:38 | DVHSR ---
APPROVED REPORT EXAM: Two-dimensional and M-mode echocardiogram with Doppler and color Doppler. Blood Pressure: 134/90 mmHg INDICATION Chest Pain RISK FACTORS Height: 64, Weight: 194 DIMENSIONS LVDd 4.8 (3.8-5.7cm) LA (2D) 4.1 (1.9-4.0cm) Aortic Root 3.9 (2.0-3.7cm) LVDs 3.1 (2.5-4.0cm) LA (MM) (1.9-4.0cm) Aortic Cusp Exc 1.9 (1.5-2.0cm) EF (%) 66.0 (55-70%) Rt. Atrium 3.9 (1.9-4.0cm) Asc. Aorta cm Mitral Valve Mitral Mitral Stenosis E wave 0.91m/s MV Mean GR. mmHg A wave 1.09m/s MV Peak GR. mmHg E/A ratio 0.8 2D MVA cm2 DECEL Time 200ms PRESS 1/2 Time 80ms IVRT ms Dop MVA 2.75cm2 Aortic Valve Aortic Valve Aortic Stenosis V1 1.40m/s AO Mean GR. 6mmHg V2 1.73m/s AO Peak GR. 12mmHg LVOT Diameter 2.1 (1.8-2.4cm) Doppler BEBA 2.80cm2 Pulmonic Valve V2 1.12m/s Tricuspid Valve TR Velocity 3.12m/s RVSP 43mmHg Conclusion very limited study lvef 55-60% small pericardial effusion noted,no HD compromise left atrium enlarged
[2025-02-16] MEDS: ceFAZolin 1GM/50ML 50 ML IV ONE (11:19)
--- NOTE | 2025-02-16 13:10 | DVHPN2 ---
Subjective in bed resting comfortable, he is oriented x3 Reviewed: H&P Changes from previous H/P or p: No Changes Eyes: No Pain, No Vision change, No Conjunctivae inflammation, No Eyelid inflammation, No Other, No Redness ENT: No Ear pain, No Ear discharge, No Nose pain, No Nose discharge, No Nose congestion, No Mouth pain, No Mouth swelling, No Throat pain, No Throat swelling, No Other Cardiovascular: Chest Pain; No Palpitations, No Orthopnea, No Paroxysmal Noc. Dyspnea, No Edema, No Lt Headedness, No Other Respiratory: No Cough, No Dry; Shortness of breath; No SOB with excertion, No Wheezing, No Hemoptysis, No Pleuritic Pain, No Sputum, No Other Gastrointestinal: Nausea; No Vomiting; Abdominal Pain; No Diarrhea, No Constipation, No Melena, No Hematochezia, No Other Genitourinary: No Dysuria, No Frequency, No Incontinence, No Hematuria, No Retention, No Other Musculoskeletal: No other, No neck pain, No shoulder pain, No arm pain, No back pain, No hand pain, No leg pain, No foot pain Skin: No Rash, No Lesions, No Jaundice, No Bruising, No Other Objective Vitals Vital Signs Date Time Temp Pulse Resp B/P (MAP) Pulse Ox O2 Delivery O2 Flow Rate FiO2 02/16/25 11:55 75 16 147/79 (101) 94 02/16/25 10:00 Room Air* 0 21 02/16/25 05:00 98.1 98.1 Intake/Output Intake and Output 02/16/25 07:00 Intake Total 1000 ml Output Total 100 ml Balance 900 ml Intake Oral 1000 ml Output Urine Total 100 ml General Appearance: Alert, Oriented X3, Cooperative, No acute distress Lungs: Clear to auscultation Cardiovascular: Regular rate, Normal S1, Normal S2 Abdomen: Normal bowel sounds Neuro: Normal speech, Strength at 5/5 X4 ext, Normal tone, Sensation intact, C ranial nerves 3-12 NL Psych/Mental Status: Mental status NL, Mood NL Medications Current Medications Medications Dose Ordered Sig/Melanie Route Start Time Stop Time Status Last Admin Dose Admin Patient Own Medication 1 cap TID PO 02/11/25 14:00 UNV Atorvastatin Calcium 40 mg HS PO 02/11/25 22:00 02/15/25 20:49 40 MG Duloxetine HCl 90 mg DAILY PO 02/12/25 10:00 02/15/25 09:41 90 MG Pregabalin 75 mg DAILY PO 02/12/25 10:00 02/15/25 09:41 75 MG Tamsulosin HCl 0.4 mg DAILY PO 02/13/25 18:00 02/15/25 09:41 0.4 MG Hydralazine HCl 10 mg Q6HP PRN IV 02/14/25 12:30 02/16/25 00:52 10 MG Acetaminophen 500 mg Q6HP PRN PO 02/15/25 00:15 02/15/25 20:51 500 MG Furosemide 40 mg DAILY IV 02/16/25 10:00 Docusate Sodium 100 mg BID PO 02/16/25 22:00 UNV Laboratory Results Laboratory Tests 02/16/25 05:31 Chemistry Test 02/16/25 05:31 Calcium Level 8.4 mg/dL (8.7-10.4) L Urinalysis Test 02/13/25 12:14 Urine Color Colorless (Yellow) Urine Clarity Clear (Clear) Urine pH 6.5 (5.0-9.0) Urine Specific [place] 1.006 (1.001-1.035) Urine Protein Negative (Negative) Urine Ketones Negative (Negative) Urine Blood 3+ /uL (Negative) H Urine Nitrite Negative (Negative) Urine Bilirubin Negative (Negative) Urine Urobilinogen Normal mg/dL (Negative) Urine Leukocyte Esterase 1+ /uL (Negative) Urine RBC 173 /hpf (0 - 3) Urine Microscopic WBC 10 /HPF (0-3) H Urine Squamous Epithelial Cells None seen /hpf (<5) Urine Bacteria Few /hpf (None Seen) H Urine Hyaline Casts Few /lpf (0 - 2) Urine Creatinine 15.16 mg/dL (30.0-125.0) L Urine Protein/Creatinine Ratio 0.48 Urine Sodium 107 mmol/L (40-220) Urine Glucose Normal mg/dL (Normal) Urine Total Protein 7.3 mg/dL (1-14) Microbiology Microbiology Date/Time Source Procedure Growth Status 02/12/25 16:46 Nose MRSA Screen - Final Complete Assessment/Plan Assessment/Plan Acute renal failure due ATN Hyperkalemia, Hyponatremia, Anemia, Acute metabolic encephalopathy due to electrolyte imbalance Pulmonary edema Cath was negative continue HD per nephrology most likely obstructive uropathy Continue IV lasix Dispo: will discuss with nephrology if need HD placement, possible dc in next 1- 2 days Plan discussed with: Patient My Orders Orders - LYNN BASS MD Procedure Category Date Status Time Docusate Sodium PHA 02/16/25 Logged Capsule (Colace 22:00 Date of Service: Feb 16, 2025 Billing Provider: LYNN BASS MD Common Visit Codes: [id number] INP/OBS CARE(HIGH) LYNN BASS MD Feb 16, 2025 13:10
--- NOTE | 2025-02-16 13:58 | DVH ---
US US Guided Vascular Access, HISTORY: TD CATH ACCESS PROCEDURE: Informed consent was obtained. The patient was placed supine on the interventional table. A limited localization ultrasound of the right neck base was obtained. The right neck base and upper chest were prepped with chlorhexidine which was allowed to dry and draped in the usual sterile fashion. Time out was performed. IV sedation was administered. The skin and the soft tissues were infiltrated with 1% Lidocaine . With real-time ultrasound guidance, the internal jugular vein was accessed with a micropuncture kit, and an image documenting patency was recorded to PACS. A subcutaneous tunneled tract was created from the right upper chest to the venotomy site. A 14.5 [place] Coolin Path, 19 cm long hemodialysis catheter was advanced through the tunneled tract. Fluoroscopy was used to advance a guidewire through the internal jugular vein into the inferior vena cava. Following serial dilatation, a 15 [place] peel-away sheath was introduced, though which was advanced the catheter into the right atrium. The catheter tip position was confirmed with fluoroscopy. There was satisfactory flow in both lumens. The catheter lumens were flushed with saline and heparin was left indwelling in the catheter. A post-procedure image of the chest was obtained. The neck incision site was closed with a Vicryl suture and dressed sterilely. The catheter was sutured at the skin surface and exit site also dressed sterilely. No immediate complication was identified. The nontunneled hemodialysis catheter was removed. DAP 94.2 FLUOROSCOPY TIME: 2.1 minutes. SEDATION: Dr. Jesenia Mcmanus was personally responsible for the administration of moderate sedation during the procedure performed, including the use of an independent trained observer who had no other duties during the procedure. The drugs utilized were IV fentanyl and versed (see nursing log for details). The total time of supervision by the attending physician was approximately 30 minutes. FINDINGS: Widely patent right IJV. Post procedure image demonstrates smooth course of the hemodialysis catheter with the tip in the right atrium. IMPRESSION: Placement of 14.5 t[place] Coolin Path, 19 cm long hemodialysis catheter through right internal jugular vein. Plan: Please contact IR for removal when no longer needed.
--- NOTE | 2025-02-16 15:45 | DVHPN2 ---
Progress Note Date Seen: Feb 16, 2025 Has the PT tested + for MRSA If YES, has PT been informed?: No Medical Necessity Reason Pt with a Central, PICC or Fol: No Subjective Patient reports: Other Review of Systems: Deferred Objective vital signs Vital Sign Date Time Temp Pulse Resp B/P (MAP) Pulse Ox O2 Delivery O2 Flow Rate FiO2 02/16/25 13:00 98.3 75 19 155/83 (107) 94 98.3 02/16/25 10:00 Room Air* 0 21 Total Intake and Output 02/15/25 02/15/25 02/16/25 15:00 23:00 07:00 Intake Total 400 ml 600 ml Output Total 100 ml Balance 300 ml 600 ml medications Current Medications Medications Dose Ordered Sig/Melanie Route Start Time Stop Time Status Last Admin Dose Admin Patient Own Medication 1 cap TID PO 02/11/25 14:00 UNV Atorvastatin Calcium 40 mg HS PO 02/11/25 22:00 02/15/25 20:49 40 MG Duloxetine HCl 90 mg DAILY PO 02/12/25 10:00 02/15/25 09:41 90 MG Pregabalin 75 mg DAILY PO 02/12/25 10:00 02/15/25 09:41 75 MG Tamsulosin HCl 0.4 mg DAILY PO 02/13/25 18:00 02/15/25 09:41 0.4 MG Hydralazine HCl 10 mg Q6HP PRN IV 02/14/25 12:30 02/16/25 00:52 10 MG Acetaminophen 500 mg Q6HP PRN PO 02/15/25 00:15 02/15/25 20:51 500 MG Furosemide 40 mg DAILY IV 02/16/25 10:00 Docusate Sodium 100 mg BID PO 02/16/25 22:00 laboratory and microbiology Laboratory Tests 02/16/25 05:31 Test 02/16/25 05:31 Range/Units Serum Glucose 111 H 74-106 mg/dL Microbiology Date/Time Source Procedure Growth Status 02/12/25 16:46 Nose MRSA Screen - Final Complete Problem List/Assessment/Plan Problem List/Assessment/Plan Acute kidney injury superimposed Chronic Kidney Disease secondary obstructive uropathy Bilateral hydronephrosis Hyponatremia due to excess H2O Hyperkalemia Anemia of chronic kidney disease Chest pain, normal troponin normal BNP Status post code ST-elevation [place] . Cardiac catheterization by Dr. Shaver --- normal coronaries Hyperphosphatemia Hypokalemia recs HD tomorrow if still here chairtime with DCD Plan discussed with: Patient My Orders My Orders Orders - BISHOP WARD MD Procedure Category Date Status Time * Fire Protection Fabricator CONS 02/16/25 Transmitted Consult BISHOP WARD MD Feb 16, 2025 15:45
[2025-02-16] MEDS ORDERED: ESZO1TAB15 PO (17:43)
[2025-02-16] MEDS: DOCUSATE SOD 100 MG CAP PO SCH (21:28)
[2025-02-16] MEDS: TEMAZEPAM 15 MG CAP PO ONE (22:24)
[2025-02-17] VITALS (9 sets, daily range): BP systolic 135–176; BP diastolic 68–96; PULSE 78–99; RESP 17–20; TEMP 97.6–98.2; O2SAT 94–98
[2025-02-17 06:10] LABS: Hematocrit 29.0 % (41.0-53.0); Hemoglobin 9.6 g/dL (13.5-17.5); Mean Corpuscular Hemoglobin 27.6 pg (28.0-32.0); Mean Corpuscular Volume 83.2 fL (80.0-100.0); Nucleated Red Blood Cells % 0.1 %
[2025-02-17 06:32] LABS: Anion Gap 13 (5-15); Carbon Dioxide 31 mmol/L (20-31); Chloride 101 mmol/L (98-107); Sodium 145 mmol/L (136-145)
[2025-02-17 06:38] LABS: BUN/Creatinine Ratio 7.4 (10.0-20.0); Blood Urea Nitrogen 19 mg/dL (9-23)
[2025-02-17 06:43] LABS: Calcium 8.5 mg/dL (8.7-10.4); Glucose 110 mg/dL (74-106); Potassium 2.9 mmol/L (3.5-5.1)
[2025-02-17] MEDS: POTASSIUM EFFERVESENT TAB 25 MEQ PO ONE (09:25)
--- NOTE | 2025-02-17 13:52 | DVHPN2 ---
Progress Note Date Seen: Feb 17, 2025 Has the PT tested + for MRSA If YES, has PT been informed?: No Medical Necessity Reason Pt with a Central, PICC or Fol: No Subjective Patient reports: No new complaints Review of Systems: Deferred Objective vital signs Vital Sign Date Time Temp Pulse Resp B/P (MAP) Pulse Ox O2 Delivery O2 Flow Rate FiO2 02/17/25 13:00 97.9 81 17 159/84 (109) 94 97.9 02/17/25 07:30 Room Air* 0 21 Total Intake and Output 02/16/25 02/16/25 02/17/25 15:00 23:00 07:00 Intake Total 550 ml 300 ml Output Total 101 ml Balance 550 ml 199 ml medications Current Medications Medications Dose Ordered Sig/Melanie Route Start Time Stop Time Status Last Admin Dose Admin Patient Own Medication 1 cap TID PO 02/11/25 14:00 UNV Atorvastatin Calcium 40 mg HS PO 02/11/25 22:00 02/15/25 20:49 40 MG Duloxetine HCl 90 mg DAILY PO 02/12/25 10:00 02/17/25 09:26 90 MG Pregabalin 75 mg DAILY PO 02/12/25 10:00 02/17/25 09:26 75 MG Tamsulosin HCl 0.4 mg DAILY PO 02/13/25 18:00 02/17/25 09:26 0.4 MG Hydralazine HCl 10 mg Q6HP PRN IV 02/14/25 12:30 02/16/25 17:40 10 MG Acetaminophen 500 mg Q6HP PRN PO 02/15/25 00:15 02/15/25 20:51 500 MG Furosemide 40 mg DAILY IV 02/16/25 10:00 Docusate Sodium 100 mg BID PO 02/16/25 22:00 02/17/25 09:26 100 MG Examination: GENERAL:Normal, HEENT:Normal, NECK:Normal, LUNGS:Normal, CVS:Normal, ABDOMEN:Normal, MSK:Normal, SKIN:Normal, NEURO:Normal, :Normal laboratory and microbiology Laboratory Tests 02/17/25 05:06 Test 02/17/25 05:06 Range/Units Serum Glucose 110 H 74-106 mg/dL Microbiology Date/Time Source Procedure Growth Status 02/12/25 16:46 Nose MRSA Screen - Final Complete Problem List/Assessment/Plan Problem List/Assessment/Plan Acute kidney injury superimposed Chronic Kidney Disease secondary obstructive uropathy Bilateral hydronephrosis Hyponatremia due to excess H2O Hyperkalemia Anemia of chronic kidney disease Chest pain, normal troponin normal BNP Status post code ST-elevation [place] . Cardiac catheterization by Dr. Shaver --- normal coronaries Hyperphosphatemia Hypokalemia recs HD today chairtime with DCD Plan discussed with: Patient My Orders My Orders Orders - BISHOP WARD MD Procedure Category Date Status Time Hemodialysis Orders ORDERS 02/17/25 Transmitted 04:00 Dietary Evaluation Review Comments: Nutrition Recommendation: 1) Nepro-maddy 1 tab daily 2) Monitor PO intake, lab values, weight trend, and I/O Expected Outcomes/Goals: Lab values to improve FU 3-5 days BISHOP WARD MD Feb 17, 2025 13:52
--- NOTE | 2025-02-17 18:08 | DVHPN2 ---
Subjective I am assuming the care of the patient from today onwards. Patient is currently getting hemodialysis. Patient is status post coronary angiogram shows normal coronary arteries. Reviewed: H&P Changes from previous H/P or p: No Changes Eyes: No Pain, No Vision change, No Conjunctivae inflammation, No Eyelid inflammation, No Other, No Redness ENT: No Ear pain, No Ear discharge, No Nose pain, No Nose discharge, No Nose congestion, No Mouth pain, No Mouth swelling, No Throat pain, No Throat swelling, No Other Cardiovascular: Chest Pain; No Palpitations, No Orthopnea, No Paroxysmal Noc. Dyspnea, No Edema, No Lt Headedness, No Other Respiratory: No Cough, No Dry; Shortness of breath; No SOB with excertion, No Wheezing, No Hemoptysis, No Pleuritic Pain, No Sputum, No Other Gastrointestinal: Nausea; No Vomiting; Abdominal Pain; No Diarrhea, No Constipation, No Melena, No Hematochezia, No Other Genitourinary: No Dysuria, No Frequency, No Incontinence, No Hematuria, No Retention, No Other Musculoskeletal: No other, No neck pain, No shoulder pain, No arm pain, No back pain, No hand pain, No leg pain, No foot pain Skin: No Rash, No Lesions, No Jaundice, No Bruising, No Other Objective Vitals Vital Signs Date Time Temp Pulse Resp B/P (MAP) Pulse Ox O2 Delivery O2 Flow Rate FiO2 02/17/25 17:00 98.0 90 20 165/91 (115) 95 98.0 02/17/25 10:00 Room Air 0.0 02/17/25 10:00 21 Intake/Output Intake and Output 02/17/25 07:00 Intake Total 850 ml Output Total 101 ml Balance 749 ml Intake Oral 850 ml Output Urine Total 100 ml Stool Total 1 ml Exam HEENT pupils are reactive Neck is supple CV is S1-S2 regular rate and rhythm Respiratory diminished breath sounds bases GI positive bowel sound Extremity no edema [employer] no motor deficit General Appearance: Alert, Oriented X3, Cooperative, No acute distress Lungs: Clear to auscultation Cardiovascular: Regular rate, Normal S1, Normal S2 Abdomen: Normal bowel sounds Neuro: Normal speech, Strength at 5/5 X4 ext, Normal tone, Sensation intact, C ranial nerves 3-12 NL Psych/Mental Status: Mental status NL, Mood NL Medications Current Medications Medications Dose Ordered Sig/Melanie Route Start Time Stop Time Status Last Admin Dose Admin Patient Own Medication 1 cap TID PO 02/11/25 14:00 UNV Atorvastatin Calcium 40 mg HS PO 02/11/25 22:00 02/15/25 20:49 40 MG Duloxetine HCl 90 mg DAILY PO 02/12/25 10:00 02/17/25 09:26 90 MG Pregabalin 75 mg DAILY PO 02/12/25 10:00 02/17/25 09:26 75 MG Tamsulosin HCl 0.4 mg DAILY PO 02/13/25 18:00 02/17/25 09:26 0.4 MG Hydralazine HCl 10 mg Q6HP PRN IV 02/14/25 12:30 02/16/25 17:40 10 MG Acetaminophen 500 mg Q6HP PRN PO 02/15/25 00:15 02/15/25 20:51 500 MG Furosemide 40 mg DAILY IV 02/16/25 10:00 Docusate Sodium 100 mg BID PO 02/16/25 22:00 02/17/25 09:26 100 MG Laboratory Results Laboratory Tests 02/17/25 05:06 Chemistry Test 02/17/25 05:06 Calcium Level 8.5 mg/dL (8.7-10.4) L Urinalysis Test 02/13/25 12:14 Urine Color Colorless (Yellow) Urine Clarity Clear (Clear) Urine pH 6.5 (5.0-9.0) Urine Specific [place] 1.006 (1.001-1.035) Urine Protein Negative (Negative) Urine Ketones Negative (Negative) Urine Blood 3+ /uL (Negative) H Urine Nitrite Negative (Negative) Urine Bilirubin Negative (Negative) Urine Urobilinogen Normal mg/dL (Negative) Urine Leukocyte Esterase 1+ /uL (Negative) Urine RBC 173 /hpf (0 - 3) Urine Microscopic WBC 10 /HPF (0-3) H Urine Squamous Epithelial Cells None seen /hpf (<5) Urine Bacteria Few /hpf (None Seen) H Urine Hyaline Casts Few /lpf (0 - 2) Urine Creatinine 15.16 mg/dL (30.0-125.0) L Urine Protein/Creatinine Ratio 0.48 Urine Sodium 107 mmol/L (40-220) Urine Glucose Normal mg/dL (Normal) Urine Total Protein 7.3 mg/dL (1-14) Microbiology Microbiology Date/Time Source Procedure Growth Status 02/12/25 16:46 Nose MRSA Screen - Final Complete Assessment/Plan Assessment/Plan This is a 79-year-old male with a known history of hypertension, dyslipidemia, BPH, chronic insomnia who initially admitted to the hospital with the chest pain found to have 1. NSTEMI status post coronary angiogram shows normal coronary arteries 2. Acute kidney injury with a underlying CKD now end-stage renal disease on hemodialysis 3. Hyperkalemia, resolved 4. Anemia likely anemia of chronic disease 5. Bilateral hydronephrosis 6. BPH 7. Chronic insomnia -hemodialysis per Nephrology, please arrange chair time, discharge plan once chair time has been arranged. Plan discussed with: Patient, Spouse Problem List: (1) Hyperkalemia (2) Acute coronary syndrome (3) Acute renal failure Date of Service: Feb 17, 2025 Billing Provider: NEIL RICO MD Common Visit Codes: [id number] INP/OBS CARE(HIGH) NEIL RICO MD Feb 17, 2025 18:08
[2025-02-17] MEDS: TEMAZEPAM 15 MG CAP PO ONE (22:04)
[2025-02-18] VITALS (8 sets, daily range): BP systolic 110–171; BP diastolic 65–85; PULSE 83–99; RESP 17–18; TEMP 97.5–98.4; O2SAT 92–94
[2025-02-18 05:33] LABS: Hematocrit 28.8 % (41.0-53.0); Hemoglobin 9.5 g/dL (13.5-17.5); Mean Corpuscular Hemoglobin 27.7 pg (28.0-32.0); Mean Corpuscular Volume 84.2 fL (80.0-100.0); Nucleated Red Blood Cells % 0.0 %
[2025-02-18 05:42] LABS: Chloride 101 mmol/L (98-107); Potassium 3.8 mmol/L (3.5-5.1); Sodium 143 mmol/L (136-145)
[2025-02-18 05:43] LABS: Anion Gap 9 (5-15); Carbon Dioxide 33 mmol/L (20-31)
[2025-02-18 05:48] LABS: BUN/Creatinine Ratio 6.4 (10.0-20.0); Blood Urea Nitrogen 13 mg/dL (9-23); Calcium 8.5 mg/dL (8.7-10.4); Glucose 97 mg/dL (74-106)
[2025-02-18 10:00] LABS: Hepatitis B Surface Antigen Negative (Negative)
[2025-02-18 10:31] LABS: Hepatitis C Antibody Negative (Negative)
--- NOTE | 2025-02-18 13:53 | DVHPN2 ---
Subjective in bed resting comfortable, he is oriented x3 Reviewed: H&P Changes from previous H/P or p: No Changes Eyes: No Pain, No Vision change, No Conjunctivae inflammation, No Eyelid inflammation, No Other, No Redness ENT: No Ear pain, No Ear discharge, No Nose pain, No Nose discharge, No Nose congestion, No Mouth pain, No Mouth swelling, No Throat pain, No Throat swelling, No Other Cardiovascular: Chest Pain; No Palpitations, No Orthopnea, No Paroxysmal Noc. Dyspnea, No Edema, No Lt Headedness, No Other Respiratory: No Cough, No Dry; Shortness of breath; No SOB with excertion, No Wheezing, No Hemoptysis, No Pleuritic Pain, No Sputum, No Other Gastrointestinal: Nausea; No Vomiting; Abdominal Pain; No Diarrhea, No Constipation, No Melena, No Hematochezia, No Other Genitourinary: No Dysuria, No Frequency, No Incontinence, No Hematuria, No Retention, No Other Musculoskeletal: No other, No neck pain, No shoulder pain, No arm pain, No back pain, No hand pain, No leg pain, No foot pain Skin: No Rash, No Lesions, No Jaundice, No Bruising, No Other Objective Vitals Vital Signs Date Time Temp Pulse Resp B/P (MAP) Pulse Ox O2 Delivery O2 Flow Rate FiO2 02/18/25 09:00 97.5 83 17 171/85 (113) 94 97.5 02/18/25 07:30 Room Air* 0 21 Intake/Output Intake and Output 02/18/25 07:00 Intake Total 700 ml Output Total 500 ml Balance 200 ml Intake Oral 700 ml Output Urine Total 500 ml General Appearance: Alert, Oriented X3, Cooperative, No acute distress Lungs: Clear to auscultation Cardiovascular: Regular rate, Normal S1, Normal S2 Abdomen: Normal bowel sounds Neuro: Normal speech, Strength at 5/5 X4 ext, Normal tone, Sensation intact, C ranial nerves 3-12 NL Psych/Mental Status: Mental status NL, Mood NL Medications Current Medications Medications Dose Ordered Sig/Melanie Route Start Time Stop Time Status Last Admin Dose Admin Patient Own Medication 1 cap TID PO 02/11/25 14:00 UNV Atorvastatin Calcium 40 mg HS PO 02/11/25 22:00 02/17/25 22:04 40 MG Duloxetine HCl 90 mg DAILY PO 02/12/25 10:00 02/18/25 08:47 90 MG Pregabalin 75 mg DAILY PO 02/12/25 10:00 02/18/25 08:46 75 MG Tamsulosin HCl 0.4 mg DAILY PO 02/13/25 18:00 02/18/25 08:47 0.4 MG Hydralazine HCl 10 mg Q6HP PRN IV 02/14/25 12:30 02/18/25 08:46 10 MG Acetaminophen 500 mg Q6HP PRN PO 02/15/25 00:15 02/15/25 20:51 500 MG Furosemide 40 mg DAILY IV 02/16/25 10:00 02/18/25 08:46 40 MG Docusate Sodium 100 mg BID PO 02/16/25 22:00 02/18/25 08:47 100 MG Laboratory Results Laboratory Tests 02/18/25 04:29 Chemistry Test 02/18/25 04:29 Calcium Level 8.5 mg/dL (8.7-10.4) L Urinalysis Test 02/13/25 12:14 Urine Color Colorless (Yellow) Urine Clarity Clear (Clear) Urine pH 6.5 (5.0-9.0) Urine Specific [place] 1.006 (1.001-1.035) Urine Protein Negative (Negative) Urine Ketones Negative (Negative) Urine Blood 3+ /uL (Negative) H Urine Nitrite Negative (Negative) Urine Bilirubin Negative (Negative) Urine Urobilinogen Normal mg/dL (Negative) Urine Leukocyte Esterase 1+ /uL (Negative) Urine RBC 173 /hpf (0 - 3) Urine Microscopic WBC 10 /HPF (0-3) H Urine Squamous Epithelial Cells None seen /hpf (<5) Urine Bacteria Few /hpf (None Seen) H Urine Hyaline Casts Few /lpf (0 - 2) Urine Creatinine 15.16 mg/dL (30.0-125.0) L Urine Protein/Creatinine Ratio 0.48 Urine Sodium 107 mmol/L (40-220) Urine Glucose Normal mg/dL (Normal) Urine Total Protein 7.3 mg/dL (1-14) Microbiology Microbiology Date/Time Source Procedure Growth Status 02/12/25 16:46 Nose MRSA Screen - Final Complete Assessment/Plan Assessment/Plan Acute renal failure due ATN Hyperkalemia, Hyponatremia, Anemia, Acute metabolic encephalopathy due to electrolyte imbalance Pulmonary edema Cath was negative continue HD per nephrology most likely obstructive uropathy Continue IV lasix Dispo: will discuss with nephrology if need HD placement, possible dc in next 1- 2 days Plan discussed with: Patient My Orders Orders - LYNN BASS MD Procedure Category Date Status Time Discharge DISCHARGE 02/18/25 Verified 13:50 Date of Service: Feb 18, 2025 Billing Provider: LYNN BASS MD Common Visit Codes: [id number] INP/OBS CARE(HIGH) LYNN BASS MD Feb 18, 2025 13:53
--- NOTE | 2025-02-18 16:28 | DVHPN2 ---
Progress Note Date Seen: Feb 18, 2025 Has the PT tested + for MRSA If YES, has PT been informed?: No Medical Necessity Reason Pt with a Central, PICC or Fol: No Subjective Patient reports: No new complaints Review of Systems: Deferred Objective vital signs Vital Sign Date Time Temp Pulse Resp B/P (MAP) Pulse Ox O2 Delivery O2 Flow Rate FiO2 02/18/25 13:00 98.4 99 18 116/65 (82) 94 98.4 02/18/25 07:30 Room Air* 0 21 Total Intake and Output 02/17/25 02/17/25 02/18/25 15:00 23:00 07:00 Intake Total 300 ml 400 ml Output Total 500 ml Balance 300 ml -100 ml medications Current Medications Medications Dose Ordered Sig/Melanie Route Start Time Stop Time Status Last Admin Dose Admin Patient Own Medication 1 cap TID PO 02/11/25 14:00 UNV Atorvastatin Calcium 40 mg HS PO 02/11/25 22:00 02/17/25 22:04 40 MG Duloxetine HCl 90 mg DAILY PO 02/12/25 10:00 02/18/25 08:47 90 MG Pregabalin 75 mg DAILY PO 02/12/25 10:00 02/18/25 08:46 75 MG Tamsulosin HCl 0.4 mg DAILY PO 02/13/25 18:00 02/18/25 08:47 0.4 MG Hydralazine HCl 10 mg Q6HP PRN IV 02/14/25 12:30 02/18/25 08:46 10 MG Acetaminophen 500 mg Q6HP PRN PO 02/15/25 00:15 02/15/25 20:51 500 MG Furosemide 40 mg DAILY IV 02/16/25 10:00 02/18/25 08:46 40 MG Docusate Sodium 100 mg BID PO 02/16/25 22:00 02/18/25 08:47 100 MG laboratory and microbiology Laboratory Tests 02/18/25 04:29 Test 02/18/25 04:29 Range/Units Serum Glucose 97 74-106 mg/dL Microbiology Date/Time Source Procedure Growth Status 02/12/25 16:46 Nose MRSA Screen - Final Complete Problem List/Assessment/Plan Problem List/Assessment/Plan Acute kidney injury superimposed Chronic Kidney Disease secondary obstructive uropathy Bilateral hydronephrosis Hyponatremia due to excess H2O Hyperkalemia Anemia of chronic kidney disease Chest pain, normal troponin normal BNP Status post code ST-elevation [place] . Cardiac catheterization by Dr. Shaver --- normal coronaries Hyperphosphatemia Hypokalemia recs HD tomorrow if still here chairtime with DCD arranged Plan discussed with: Patient Dietary Evaluation Review Comments: Nutrition Recommendation: 1) Nepro-maddy 1 tab daily 2) Monitor PO intake, lab values, weight trend, and I/O Expected Outcomes/Goals: Lab values to improve FU 3-5 days BISHOP WARD MD Feb 18, 2025 16:28
== END 2025-02-18 17:44 | disposition home or self-care (01) | DRG 280 ==
LOC: ER 23:30 → OVERFLOW 02-11 10:34 → TELE-CENTR 02-11 12:50 → ICU WEST 02-12 14:15 → TELE-CENTR 02-13 12:21
PROVIDERS: ADMIT Hospitalist; ATTEND Hospitalist
PROC: 4A023N7 Measurement of Cardiac Sampling and Pressure, Left Heart, Percutaneous Approach (ICD-10-PCS; principal; 2025-02-12)
PROC: 5A1D70Z Performance of Urinary Filtration, Intermittent, Less than 6 Hours Per Day (ICD-10-PCS; 2025-02-12)
PROC: B211YZZ Fluoroscopy of Multiple Coronary Arteries using Other Contrast (ICD-10-PCS; 2025-02-12)
PROC: B215YZZ Fluoroscopy of Left Heart using Other Contrast (ICD-10-PCS; 2025-02-12)
PROC: 02HV33Z Insertion of Infusion Device into Superior Vena Cava, Percutaneous Approach (ICD-10-PCS; 2025-02-12)
PROC: B548ZZA Ultrasonography of Superior Vena Cava, Guidance (ICD-10-PCS; 2025-02-12)
PROC: 5A1D70Z Performance of Urinary Filtration, Intermittent, Less than 6 Hours Per Day (ICD-10-PCS; 2025-02-13)
PROC: 0JH63XZ Insertion of Tunneled Vascular Access Device into Chest Subcutaneous Tissue and Fascia, Percutaneous Approach (ICD-10-PCS; 2025-02-13)
PROC: 02H633Z Insertion of Infusion Device into Right Atrium, Percutaneous Approach (ICD-10-PCS; 2025-02-13)
PROC: B518YZA Fluoroscopy of Superior Vena Cava using Other Contrast, Guidance (ICD-10-PCS; 2025-02-13)
PROC: B548ZZA Ultrasonography of Superior Vena Cava, Guidance (ICD-10-PCS; 2025-02-13)
PROC: 5A1D70Z Performance of Urinary Filtration, Intermittent, Less than 6 Hours Per Day (ICD-10-PCS; 2025-02-15)
PROC: 5A1D70Z Performance of Urinary Filtration, Intermittent, Less than 6 Hours Per Day (ICD-10-PCS; 2025-02-17)
DX: I21.29 ST elevation (STEMI) myocardial infarction involving other sites (principal); G93.41 Metabolic encephalopathy; N17.0 Acute kidney failure with tubular necrosis; J18.9 Pneumonia, unspecified organism; N18.6 End stage renal disease; I13.2 Hypertensive heart and chronic kidney disease with heart failure and with stage 5 chronic kidney disease, or end stage renal disease; E87.1 Hypo-osmolality and hyponatremia; D63.1 Anemia in chronic kidney disease; E83.39 Other disorders of phosphorus metabolism; Z99.2 Dependence on renal dialysis; N13.30 Unspecified hydronephrosis; I50.9 Heart failure, unspecified; E87.5 Hyperkalemia; E86.0 Dehydration; N40.0 Benign prostatic hyperplasia without lower urinary tract symptoms; F51.04 Psychophysiologic insomnia; E78.5 Hyperlipidemia, unspecified; G89.29 Other chronic pain; E87.6 Hypokalemia; Z98.1 Arthrodesis status; Z79.899 Other long term (current) drug therapy
CPT/HCPCS: 36415; 36556; 36558; 71045; 74176; 76775; 76937; 77001; 80048; 80053; 81001; 82306; 82550; 82570; 82962; 83036; 83735; 83880; 83970; 84100; 84132; 84154; 84156; 84300; 84484; 85025; 85610; 85730; 86706; 86803; 86850; 86900; 86901; 87081; 87340; 90935; 93005; 93306; 93458; 94640; 99152; 99291; A4565; C1887; C1894; G0378; J1642; J1815; J2250; J2405; Q9967

== ENCOUNTER 2025-02-20 16:57 | Emergency (ER) | payer OTHER, MEDICAID ==
[~2025-02-20] VITALS: Ht 160 cm; Wt 72.9 kg
[~2025-02-20 16:57] MED LIST changes: -CIPR500T4 PO; +ESZO1TAB15 PO
--- NOTE | 2025-02-20 19:01 | ED.PDOC ---
General HPI Comments HPI: 79-year-old male who came to ER for urinary symptoms. Patient discharged last February 18, 2025 diagnosed with: Acute kidney injury superimposed Chronic Kidney Disease secondary obstructive uropathy Bilateral hydronephrosis Hyponatremia due to excess H2O Hyperkalemia Anemia of chronic kidney disease Chest pain, normal troponin normal BNP Status post code ST-elevation [place] . Cardiac catheterization by Dr. Shaver --- normal coronaries Hyperphosphatemia Hypokalemia Patient states he has been experiencing dysuria since yesterday, burning on urination. Denies any gross hematuria or abdominal pain or fever. Past Medical History: Anemia, CKF, Hypertension Past Surgical History: Cardiac catheterization Social History: Denies HPI: Poor Historian. REVIEW OF SYSTEMS: CONSTITUTIONAL: Denies acute: fever, diaphoresis, chills, generalized weakness. HEAD: Denies acute: headache, photophobia Eyes: Denies acute: Double vision, vision loss, eye pain, eye discharge. EARS: Denies acute: tinnitus, hearing loss, ear discharge, ear pain, THROAT: Denies acute: sore throat, swelling, difficulty swallowing , pain with swallowing, change in voice. NECK: Denies acute: neck pain, neck swelling, stiff neck. HEART: Denies acute : chest pain, palpitations, LUNGS: Denies acute: SOB, wheezing, cough, hemoptysis ABDOMEN: Denies acute: abdominal pain, Nausea, Vomiting, diarrhea, melena , hematemesis, hematochezia SKIN: Denies acute: rash, redness, lesions, itchiness. EXTREMITIES: Denies acute: calf pain, numbness, tingling, weakness, denies pain in extremity. Denies acute: Low back pain. Neuro: Denies acute: focal neurological deficit, motor or sensory focal neurological deficit, tremors, seizure like activity, confusion, dizziness, change in mental status, loss of bowel or bladder function, cauda equina like symptoms. : Denies acute: hematuria, flank pain, increase in urinary frequency. PSYCH: Denies acute: hallucination, suicidal ideation, homicidal ideation. PHYSICAL EXAM: General: ---mild-----acute distress, awake and alert. Head: normocephalic, atraumatic. No raccoon's eyes, no dowling sign. Neck: supple, trachea is midline, no swelling. Throat: Normal phonation. Eyes:, no erythema, no purulent discharge, no proptosis, no icterus. Heart: regular rate, regular rhythm, no significant murmur appreciated. Lungs: no apparent respiratory distress, Able to speak in full sentences. No wheezing, no rhonchi, no crackles. No stridors Clear to auscultation bilaterally. Abdomen: Minimal suprapubic tender to palpation, non distended, soft, no guarding, no rebound, + bowel sounds. Neuro: Awake, Alert, oriented to name, self, situation, follows commands GCS=15. Speech is normal. Skin: no petechia, no purpura, no cyanosis, non-pale, not jaundice. Lower extremities: --no - Pitting edema no deformity, no focal swelling, no calf TTP. Makes eye contact. moves all four extremities. Face: no apparent facial droop. Ambulating in the ED independently. ED COURSE: DISCLAIMER: This medical document was created using an electronic medical record system with voice recognition software and computerized dictation system. Although this document has been carefully reviewed, there might still be some phonetic and typographical errors. Occasional wrong-word or "sound-alike" substitutions may have occurred due to the inherent limitations of voice recognition software. These areas are purely typographical due to imperfections of the software programs and do not reflect any compromise in the patient's medical care. Please read the chart carefully and recognize, using context, where these substitutions have occurred. Chief Complaint: Urinary Time Seen by MD: 19:00 Reviewed notes: Nurses Notes, Allergies Allergies: Coded Allergies: NO KNOWN ALLERGIES (Unverified , 01/11/23) Home Meds Active Scripts Levofloxacin Hemihydrate (LEVAQUIN 500 MG) 500 Mg Tab, 500 MG PO DAILY for 7 Days, #7 TAB Prov:ANNA FUENTES DO 02/20/25 Hydrocodone-Acetaminophen (Hydrocodone Bitartrate/AC 5-325 mg) 1 Tab Tab, 1 TAB PO Q6HPRN PRN, #20 TAB Prov:LEONIDES SIM MD 01/12/23 Reported Medications Eszopiclone (Eszopiclone) 3 Mg Tab, 1 TAB PO QHSP PRN for FOR INSOMNIA 02/16/25 Docusate Sodium (Docusate Sodium) 100 Mg Cap, 1 CAP PO TID PRN for constipation 01/12/23 Duloxetine HCl (Duloxetine HCl) 30 Mg Cap, 3 CAP PO DAILY 01/12/23 Omeprazole (Omeprazole Dr) 40 Mg Cap, 1 CAP PO DAILY 01/12/23 Alendronate Sodium (Alendronate Sodium) 70 Mg Tab, 1 TAB PO QWEEKLY 01/12/23 Tamsulosin Hcl (Tamsulosin Hcl) 0.4 Mg Cap, 2 CAP PO DAILY 01/12/23 Ferrous Sulfate (Ferosul) 325 Mg Tab, 1 TAB PO BID 01/12/23 Atorvastatin Calcium (ATORVASTATIN CALCIUM) 40 Mg Tab, 1 TAB PO 01/12/23 Pregabalin (Pregabalin) 150 Mg Cap, 1 CAP PO TID 01/11/23 Trazodone HCl (Trazodone Hydrochorlide) 150 Mg Tab, 1 TAB PO 01/11/23 Information Source: Patient Mode of Arrival: Ambulatory Past Medical History PAST MEDICAL HISTORY: Anemia, CKF Social History Smoker: Non-Smoker Alcohol: Denies ETOH Use Drugs: Denies Drug Use Was a procedure done? Was a procedure done?: No X-Ray, Labs, Meds, VS Vital Signs Date Time Temp Pulse Resp B/P (MAP) Pulse Ox O2 Delivery O2 Flow Rate FiO2 02/20/25 23:00 16 98 Room Air* 0 21 21 02/20/25 22:41 98 16 144/86 (105) 94 02/20/25 19:42 98.1 96 16 130/90 (103) 95 98.1 02/20/25 17:07 97.4 101 18 142/69 96 97.4 Lab Test 02/20/25 20:08 02/20/25 19:19 02/20/25 18:23 Range/Units Urine Color Yellow Yellow Urine Clarity Turbid H Clear Urine pH 5.5 5.0-9.0 Urine Specific [place] 1.016 1.001-1.035 Urine Protein 1+ H Negative Urine Ketones Negative Negative Urine Blood 3+ H Negative /uL Urine Nitrite Negative Negative Urine Bilirubin Negative Negative Urine Urobilinogen Normal Negative mg/dL Urine Leukocyte Esterase 3+ Negative /uL Urine RBC 182 0 - 3 /hpf Urine Microscopic WBC 182 H 0-3 /HPF Urine Squamous Epithelial Cells None seen <5 /hpf Urine Bacteria Few H None Seen /hpf Urine Glucose Normal Normal mg/dL White Blood Count 11.0 H 4.4-10.8 10^3/uL Red Blood Count 3.93 L 4.5-5.90 10^6/uL Hemoglobin 10.8 L 13.5-17.5 g/dL Hematocrit 33.1 #L 41.0-53.0 % Mean Corpuscular Volume 84.1 80.0-100.0 fL Mean Corpuscular Hemoglobin 27.6 L 28.0-32.0 pg Mean Corpuscular Hemoglobin Concent 32.8 32.0-36.0 g/dL Red Cell Distribution Width 14.4 H 11.8-14.3 % Platelet Count 198 140-450 10^3/uL Mean Platelet Volume 8.9 6.9-10.8 fL Neutrophils (%) (Auto) 66.2 37.0-80.0 % Lymphocytes (%) (Auto) 17.4 10.0-50.0 % Monocytes (%) (Auto) 13.2 H 0.0-12.0 % Eosinophils (%) (Auto) 2.0 0.0-7.0 % Basophils (%) (Auto) 1.2 0.0-2.0 % Neutrophils # (Auto) 7.3 1.6-8.6 10 ^3/uL Lymphocytes # (Auto) 1.9 0.4-5.4 10 ^3/uL Monocytes # (Auto) 1.5 H 0-1.3 10 ^3/uL Eosinophils # (Auto) 0.2 0-0.8 10 ^3/uL Basophils # (Auto) 0.1 0-0.2 10 ^3/uL Nucleated Red Blood Cells 0.1 % Sodium Level 138 # 136-145 mmol/L Potassium Level 3.4 L 3.5-5.1 mmol/L Chloride Level 97 L 98-107 mmol/L Carbon Dioxide Level 31 20-31 mmol/L Anion Gap 10 5-15 Blood Urea Nitrogen 20 9-23 mg/dL Creatinine 2.13 H 0.700-1.30 mg/dL Glomerular Filtration Rate Calc 31 >90 mL/min BUN/Creatinine Ratio 9.4 L 10.0-20.0 Serum Glucose 101 74-106 mg/dL Calcium Level 8.4 L 8.7-10.4 mg/dL Total Bilirubin 0.4 0.2-1.0 mg/dL Aspartate Amino Transferase (AST) 38 13-40 U/L Alanine Aminotransferase (ALT) 16 7-40 U/L Alkaline Phosphatase 87 46-116 U/L Total Protein 7.1 5.7-8.2 g/dL Albumin 3.8 3.2-4.8 g/dL Current Medications Medications (Trade) Dose Ordered Sig/Melanie Route Start Time Stop Time Status Last Admin Ceftriaxone Sodium 50 ml @ 100 mls/hr ONCE ONCE IV 02/20/25 22:30 02/20/25 22:59 DC 02/20/25 23:15 [place] [address] Ph: [phone] DIAGNOSTIC IMAGING Diagnostic Imaging Report : [id number] Signed PATIENT: CAMERON RASHEED ACCT: [id number] UNIT: [id number] : 1945 LOC: ER ROOM / BED: / AGE / SEX: 79 / M ADM STATUS: REG ER SERVICE 35 ORDERING PHYSICIAN: ANNA FUENTES DO PROCEDURE(s): ABPL - CT AB PEL WO CON-NO ORAL OR IV REASON: urinary symptoms ORDER NUMBER(s): [id number], ACCESSION NUMBER(s): [id number] COMPUTERIZED TOMOGRAPHY ABDOMEN AND PELVIS WITHOUT CONTRAST REASON FOR EXAM: urinary symptoms COMPARISON: CT CT AB PEL WO CON-NO ORAL OR IV on DOS: 02/11/25 TECHNIQUE: Spiral scans were acquired from the diaphragm to the symphysis pubis without intravenous contrast administration. 2-D coronal and sagittal reformatted images were provided. Radiation optimization: All CT scans at this facility use at least one of these dose optimization techniques: Automated exposure control mA and/or kV adjustment per patient size (includes targeted exams where dose is matched to clinical indication) or iterative reconstruction. RADIATION DOSE: CTDI: 9 mGy DLP: 415 mGy-cm FINDINGS: There are a few scattered 2-3 mm nodules at the lung bases. No significant airspace disease is identified. There are mild fibrotic changes. There is no pleural effusion. There is a small pericardial effusion. The spleen is not enlarged. The liver is normal in size and contour. Evaluation of the abdominal organs is suboptimal in the absence of intravenous contrast. No calcified gallstone is identified. Unenhanced appearance of the pancreas is grossly unremarkable. The adrenal glands appear normal. The kidneys appear atrophic, right worse than left. There is moderate bilateral hydroureteronephrosis. The urinary bladder appears thick walled. The prostate is within normal limits for size. No renal, ureteral, or bladder calculus is identified. No free fluid is identified in the abdomen or pelvis. There is sigmoid diverticulosis without evidence of diverticulitis. The colonic stool burden is small. The appendix is normal. There is no Pathologic distention of the small bowel. There is no abdominal aortic aneurysm. No pathologic lymphadenopathy is identified by size criteria. There is a moderate-sized fat c ontaining right inguinal hernia. There is a spinal stimulator. No acute osseous abnormality is identified. There is transpedicular fusion of L4-L5 with an intervertebral disc spacer. IMPRESSION: Moderate bilateral hydroureteronephrosis, unchanged from the prior study. No renal, ureteral, or bladder calculus is identified. Persistent thickening of the urinary bladder. Fat containing right inguinal hernia. ATED BY: JUSTIN BELLE MD DICTATED DATE/TIME: 02/20/251932 SIGNED BY: JUSTIN BELLE MD SIGNED DATE/TIME: 02/20/251932 CC: Time of 1ST Reevaluation: 18:57 Reevaluation 1ST: Unchanged Patient Education/Counseling: Diagnosis, Treatment Family Education/Counseling: No Family Present SEPSIS Sepsis Screen Date sepsis recognized/suspect: Feb 20, 2025 Time Sepsis recognized/suspect: 1708 Recent Procedure: No On Antibiotic Therapy: No Respiratory Rate >20: No Heart Rate >90: Yes Temp<36 C (96.8 F) or >38.3 C: No SBP <90 or MAP <65 mmHG: No New Acute Mental Status Change: No Is the patient on CPAP, BIPAP,: No Physician Orders Collector (02/20/25 ) Ct Ab Pel Wo Con-No Oral Or Iv (02/20/25 18:36) Vital Signs Date Time Temp Pulse Resp B/P (MAP) Pulse Ox O2 Delivery O2 Flow Rate FiO2 02/20/25 23:00 16 98 Room Air* 0 21 21 02/20/25 22:41 98 16 144/86 (105) 94 02/20/25 19:42 98.1 96 16 130/90 (103) 95 98.1 02/20/25 17:07 97.4 101 18 142/69 96 97.4 Laboratory Tests Test 02/20/25 19:19 White Blood Count 11.0 10^3/uL (4.4-10.8) H Medications Medications Dose Ordered Sig/Melanie Route Start Time Stop Time Status Last Admin Dose Admin Ceftriaxone Sodium 50 ml @ 100 mls/hr ONCE ONCE IV 02/20/25 22:30 02/20/25 22:59 DC 02/20/25 23:15 Departure 1 Departure Time of Disposition: 22:21 Impression: Primary Impression: Urinary tract infection Disposition: HOME / SELF CARE / HOMELESS Condition: Stable Additional Instructions: Additional instructions: Please read all instructions provided in this packet carefully. You MUST follow-up with your primary care/family doctor in 1 to 2 days. If you are unable to see your primary care/family doctor, please return to our emergency room for re-assessment and re-evaluation in 1 to 2 days. Return to the emergency room here in our facility or to the nearest ER BABS if your symptoms change or worsen. CONSULTATIONS: you MUST Follow-up for consultation as soon as possible with: -urology and nephrology in 1-2 days. Please call for appointment. You MUST call the consultants office yourself to make an appointment. You may need to arrange that through your insurance and/or your primary/family doctor. If you are unable to see the healthcare economics consultant in 1 to 2 days, you must return to our emergency room (or any other ER of your choice) for re-assessment and re- evaluation. Adequate fluid hydration. Although you have been discharged from the Emergency Department, this does not mean that you have a "clean bill of health". No definitive diagnosis for your symptoms has been made today. It is possible that you are in the process of developing a serious illness. This is why you must return to the ED without fail if any new or worsening symptoms develop. Below is a copy of your radiological report for follow up: [address] [address] Ph: [phone] DIAGNOSTIC IMAGING Diagnostic Imaging Report : [id number] Signed PATIENT: MANISHA RASHEEDOPOLDO ACCT: [id number] UNIT: [id number] : 1945 LOC: ER ROOM / BED: / AGE / SEX: 79 / M ADM STATUS: REG ER SERVICE 35 ORDERING PHYSICIAN: ANNA FUENTES DO PROCEDURE(s): ABPL - CT AB PEL WO CON-NO ORAL OR IV REASON: urinary symptoms ORDER NUMBER(s): [id number], ACCESSION NUMBER(s): [id number] COMPUTERIZED TOMOGRAPHY ABDOMEN AND PELVIS WITHOUT CONTRAST REASON FOR EXAM: urinary symptoms COMPARISON: CT CT AB PEL WO CON-NO ORAL OR IV on DOS: 02/11/25 TECHNIQUE: Spiral scans were acquired from the diaphragm to the symphysis pubis without intravenous contrast administration. 2-D coronal and sagittal reformatted images were provided. Radiation optimization: All CT scans at this facility use at least one of these dose optimization techniques: Automated exposure control mA and/or kV adjustment per patient size (includes targeted exams where dose is matched to clinical indication) or iterative reconstruction. RADIATION DOSE: CTDI: 9 mGy DLP: 415 mGy-cm FINDINGS: There are a few scattered 2-3 mm nodules at the lung bases. No significant airspace disease is identified. There are mild fibrotic changes. There is no pleural effusion. There is a small pericardial effusion. The spleen is not enlarged. The liver is normal in size and contour. Evaluation of the abdominal organs is suboptimal in the absence of intravenous contrast. No calcified gallstone is identified. Unenhanced appearance of the pancreas is grossly unremarkable. The adrenal glands appear normal. The kidneys appear atrophic, right worse than left. There is moderate bilateral hydroureteronephrosis. The urinary bladder appears thick walled. The prostate is within normal limits for size. No renal, ureteral, or bladder calculus is i dentified. No free fluid is identified in the abdomen or pelvis. There is sigmoid diverticulosis without evidence of diverticulitis. The colonic stool burden is small. The appendix is normal. There is no Pathologic distention of the small bowel. There is no abdominal aortic aneurysm. No pathologic lymphadenopathy is identified by size criteria. There is a moderate-sized fat containing right inguinal hernia. There is a spinal stimulator. No acute osseous abnormality is identified. There is transpedicular fusion of L4-L5 with an intervertebral disc spacer. IMPRESSION: Moderate bilateral hydroureteronephrosis, unchanged from the prior study. No renal, ureteral, or bladder calculus is identified. Persistent thickening of the urinary bladder. Fat containing right inguinal hernia. ATED BY: JUSTIN BELLE MD DICTATED DATE/TIME: 02/20/251932 SIGNED BY: JUSTIN BELLE MD SIGNED DATE/TIME: 02/20/251932 CC: e-Prescriptions Levofloxacin Hemihydrate (LEVAQUIN 500 MG) 500 Mg Tab 500 MG PO DAILY for 7 Days, #7 TAB Prov: ANNA FUENTES DO 02/20/25 Discharged With: Self Critical Care Note Critical Care Time?: No Heart Score Heart Score: Heart Score Response (Comments) Value History N/A 0 EKG N/A 0 Age N/A 0 Risk Factors N/A 0 Troponin N/A 0 Total 0 I personally scribed for ANNA FUENTES DO ([email or web address]) on 02/20/25 at 19:01. Electronically submitted by Addison Hung ([email or web address]). I personally scribed for ANNA FUENTES DO ([email or web address]) on 02/20/25 at 20:45. Electronically submitted by Addison Hung ([email or web address]). ANNA FUENTES DO Feb 20, 2025 19:01
[2025-02-20 19:02] LABS: Alanine Aminotransferase 16 U/L (7-40); Albumin 3.8 g/dL (3.2-4.8); Alkaline Phosphatase 87 U/L (46-116); Anion Gap 10 (5-15); BUN/Creatinine Ratio 9.4 (10.0-20.0); Blood Urea Nitrogen 20 mg/dL (9-23); Carbon Dioxide 31 mmol/L (20-31); Glucose 101 mg/dL (74-106); Sodium 138 mmol/L (136-145); Total Protein 7.1 g/dL (5.7-8.2)
[2025-02-20 19:03] LABS: Bilirubin, Total 0.4 mg/dL (0.2-1.0); Chloride 97 mmol/L (98-107); Potassium 3.4 mmol/L (3.5-5.1)
[2025-02-20 19:04] LABS: Calcium 8.4 mg/dL (8.7-10.4)
[2025-02-20 19:27] LABS: Hematocrit 33.1 % (41.0-53.0); Hemoglobin 10.8 g/dL (13.5-17.5); Mean Corpuscular Hemoglobin 27.6 pg (28.0-32.0); Mean Corpuscular Volume 84.1 fL (80.0-100.0); Nucleated Red Blood Cells % 0.1 %
--- NOTE | 2025-02-20 19:36 | DVH ---
COMPUTERIZED TOMOGRAPHY ABDOMEN AND PELVIS WITHOUT CONTRAST REASON FOR EXAM: urinary symptoms COMPARISON: CT CT AB PEL WO CON-NO ORAL OR IV on DOS: 02/11/25 TECHNIQUE: Spiral scans were acquired from the diaphragm to the symphysis pubis without intravenous contrast administration. 2-D coronal and sagittal reformatted images were provided. Radiation optimization: All CT scans at this facility use at least one of these dose optimization techniques: Automated exposure control mA and/or kV adjustment per patient size (includes targeted exams where dose is matched to clinical indication) or iterative reconstruction. RADIATION DOSE: CTDI: 9 mGy DLP: 415 mGy-cm FINDINGS: There are a few scattered 2-3 mm nodules at the lung bases. No significant airspace disease is identified. There are mild fibrotic changes. There is no pleural effusion. There is a small pericardial effusion. The spleen is not enlarged. The liver is normal in size and contour. Evaluation of the abdominal organs is suboptimal in the absence of intravenous contrast. No calcified gallstone is identified. Unenhanced appearance of the pancreas is grossly unremarkable. The adrenal glands appear normal. The kidneys appear atrophic, right worse than left. There is moderate bilateral hydroureteronephrosis. The urinary bladder appears thick walled. The prostate is within normal limits for size. No renal, ureteral, or bladder calculus is identified. No free fluid is identified in the abdomen or pelvis. There is sig moid diverticulosis without evidence of diverticulitis. The colonic stool burden is small. The appendix is normal. There is no Pathologic distention of the small bowel. There is no abdominal aortic aneurysm. No pathologic lymphadenopathy is identified by size criteria. There is a moderate-sized fat containing right inguinal hernia. There is a spinal stimulator. No acute osseous abnormality is identified. There is transpedicular fusion of L4-L5 with an intervertebral disc spacer. IMPRESSION: Moderate bilateral hydroureteronephrosis, unchanged from the prior study. No renal, ureteral, or bladder calculus is identified. Persistent thickening of the urinary bladder. Fat containing right inguinal hernia.
[2025-02-20 19:42] VITALS: TEMP 98.1
[2025-02-20 22:10] LABS: Urine Protein, UAD 1+ (Negative)
[2025-02-20 22:41] VITALS: BP 144/86; PULSE 98
[2025-02-20 23:00] VITALS: RESP 16; O2SAT 98
[2025-02-20] MEDS ORDERED: LEVO500T91 PO (23:14)
--- NOTE | 2025-02-23 10:17 | ECG ---
[facility] Test Date: 2025-02-11 Test Time: 02:40:32 Pat Name: CAMERON RASHEED Department: [facility] ED Patient ID: [facility]-[id number] Room: Gender: M Voip Technician: : 1945 Requested By: ANNA FUENTES Order Number: [id number] Reading MD: Yunior Shaver Measurements Intervals [place] Rate: 82 P: -2 OK: 172 QRS: -37 QRSD: 93 T: 42 QT: 364 QTc: 425 Interpretive Statements Sinus rhythm Left axis deviation Borderline low voltage, extremity leads ST elevation suggests acute pericarditis Electronically Signed On 02-24-2025 17:30:25 PST by Yunior Shaver Please click the below link to view image of tracing.
== END 2025-02-20 23:34 | disposition home or self-care (01) ==
LOC: ER 16:57
DX: N39.0 Urinary tract infection, site not specified (principal); D64.9 Anemia, unspecified; I12.9 Hypertensive chronic kidney disease with stage 1 through stage 4 chronic kidney disease, or unspecified chronic kidney disease; N18.9 Chronic kidney disease, unspecified; Z79.899 Other long term (current) drug therapy
CPT/HCPCS: 36415; 74176; 80053; 81001; 93005; 96365; 99285; J0696

== ENCOUNTER 2025-02-27 07:51 | Inpatient (IN) | payer OTHER, MEDICAID ==
[~2025-02-27] VITALS: Ht 162.6 cm; Wt 88.6 kg
[~2025-02-27 07:51] MED LIST changes: +LEVO500T91 PO
--- NOTE | 2025-02-27 08:08 | ED.PDOC ---
History of Present Illness HPI Comments 79 y.o male with PMHx of ESRD, on dialysis, presents to the ED via EMS for an evaluation of generalized weakness. EMS reports patient was at dialysis today, became hypotensive in the 's systolic and staff called 911. On scene, patient reported feeling better, however remained hypotensive. He denies any chest pain, SOB, fever, chills, recent illness, or lightheadedness. Time Seen by MD: 08:00 Reviewed Notes: Nurses Notes, R And D Lab Technician Notes, Medications, Allergies Allergies: Coded Allergies: NO KNOWN ALLERGIES (Unverified , 01/11/23) Home Meds Active Scripts Levofloxacin Hemihydrate (LEVAQUIN 500 MG) 500 Mg Tab, 500 MG PO DAILY for 7 Days, #7 TAB Prov:ANNA FUENTES DO 02/20/25 Hydrocodone-Acetaminophen (Hydrocodone Bitartrate/AC 5-325 mg) 1 Tab Tab, 1 TAB PO Q6HPRN PRN, #20 TAB Prov:LEONIDES SIM MD 01/12/23 Reported Medications Eszopiclone (Eszopiclone) 3 Mg Tab, 1 TAB PO QHSP PRN for FOR INSOMNIA 02/16/25 Docusate Sodium (Docusate Sodium) 100 Mg Cap, 1 CAP PO TID PRN for constipation 01/12/23 Duloxetine HCl (Duloxetine HCl) 30 Mg Cap, 3 CAP PO DAILY 01/12/23 Omeprazole (Omeprazole Dr) 40 Mg Cap, 1 CAP PO DAILY 01/12/23 Alendronate Sodium (Alendronate Sodium) 70 Mg Tab, 1 TAB PO QWEEKLY 01/12/23 Tamsulosin Hcl (Tamsulosin Hcl) 0.4 Mg Cap, 2 CAP PO DAILY 01/12/23 Ferrous Sulfate (Ferosul) 325 Mg Tab, 1 TAB PO BID 01/12/23 Atorvastatin Calcium (ATORVASTATIN CALCIUM) 40 Mg Tab, 1 TAB PO 01/12/23 Pregabalin (Pregabalin) 150 Mg Cap, 1 CAP PO TID 01/11/23 Trazodone HCl (Trazodone Hydrochorlide) 150 Mg Tab, 1 TAB PO 01/11/23 Information Source: Patient, Emergency Med Personnel Mode of Arrival: EMS Severity: Moderate Timing: Hours Duration: Since onset Past Medical History PAST MEDICAL HISTORY: Anemia, CKF Surgical History: Denies all surgeries Family History Family History: Reviewed,noncontributory to illness Social History Smoker: Non-Smoker Alcohol: Denies ETOH Use Drugs: Denies Drug Use Constitutional: reports: weakness; denies: chills, diaphoresis, fatigue, fever, malaise, sweats, others EENTM: denies: blurred vision, double vision, ear bleeding, ear discharge, ear drainage, ear pain, ear ringing, eye pain, eye redness, hearing loss, mouth pain, mouth swelling, nasal discharge, nose bleeding, nose congestion, nose pain, photophobia, tearing, throat pain, throat swelling, voice changes, others Respiratory: denies: cough, hemoptysis, orthopnea, SOB at rest, shortness of breath, SOB with excertion, stridor, wheezing, others Cardiovascular: denies: chest pain, dizzy spells, diaphoresis, Dyspnea on exertion, edema, irregular heart beat, left arm pain, lightheadedness, palpitations, PND, syncope, others Gastrointestinal: denies: abdomen distended, abdominal pain, blood streaked bowels, constipated, diarrhea, dysphagia, difficulty swallowing, hematemesis, melena, nausea, poor appetite, poor fluid intake, rectal bleeding, rectal pain, vomiting, others Genitourinary: denies: burning, dysuria, flank pain, frequency, hematuria, incontinence, penile discharge, penile sore, pain, testicle pain, testicle swelling, urgency, others Neurological: denies: dizziness, fainting, headache, left sided numbness, left sided weakness, numbness, paresthesia, pre-existing deficit, right sided numbness, right sided weakness, seizure, speech problems, tingling, tremors, weakness, others Musculoskeletal: denies: back pain, gout, joint pain, joint swelling, muscle pain, muscle stiffness, neck pain, others Integumetry: denies: bruises, change in color, change in hair/nails, dryness, laceration, lesions, lumps, rash, wounds, others Allergic/Immunocompromised: denies: Difficulty Healing, Frequent Infections, Hives, Itching, others Hematologic/Lymphatic: denies: anemia, blood clots, easy bleeding, easy bruising, swollen glands, others Endocrine: denies: excessive hunger, excessive sweating, excessive thirst, excessive urination, flushing, intolerance to cold, intolerance to heat, unexplained weight gain, unexplained weight loss, others Psychiatric: denies: anxiety, bipolar disorder, depression, hopeless, panic disorder, schizophrenia, sleepless, suicidal, others All Other Systems: Reviewed and Negative Physical Exam General Appearance: Other (Weak appearing ) HEENT: Normal ENT Inspection, Pharynx Normal, TMs Normal Neck: Full Range of Motion, Non-Tender, Normal, Normal Inspection Respiratory: Chest Non-Tender, Lungs Clear, No Accessory Muscle Use, No Respiratory Distress, Normal Breath Sounds Cardiovascular: No Edema, No JVD, No Murmur, No Gallop, Normal Peripheral Pulses, Regular Rate/Rhythm Breast Exam: Deferred Gastrointestinal: No Organomegaly, Non Tender, No Pulsatile Mass, Normal Bowel Sounds, Soft Genitalia: Deferred Pelvic: Deferred Rectal: Deferred Extremities: No calf tenderness, Normal capillary refill, Normal inspection, Normal range of motion, Non-tender, No pedal edema Musculoskeletal : Apperance: Normal Neurologic: Alert, tag machine operator II-XII nml as Tested, No Motor Deficits, Normal Affect, Normal Mood, No Sensory Deficits Cerebellar Function: Normal Reflexes: Normal Skin: Dry, Normal Color, Warm Lymphatic: No Adenopathy Was a procedure done? Was a procedure done?: No Differential Dx Considerations may include: Hypotensive, Dehydration, Electrolyte imbalance. X-Ray, Labs, Meds, VS Vital Signs Date Time Temp Pulse Resp B/P (MAP) Pulse Ox O2 Delivery O2 Flow Rate FiO2 02/27/25 12:00 60 12 98/52 (67) 98 02/27/25 10:57 Room Air* 0 02/27/25 10:30 97.4 65 14 130/68 (88) 97 97.4 02/27/25 08:43 61 02/27/25 08:25 61 14 97 Room Air* 0 02/27/25 08:25 97.7 64 14 108/66 (80) 97 97.7 02/27/25 07:56 97.9 68 18 119/62 98 97.9 Lab Test 02/27/25 11:23 02/27/25 10:49 02/27/25 09:26 02/27/25 08:22 Range/Units Prothrombin Time 11.9 H 9.3-11.8 sec Prothrombin Time INR 1.14 0.9-1.15 Activated Partial Thromboplast Time 32.9 24.5-34.5 SEC Troponin I High Sensitivity 10 11 12 </=54 ng/L POC Glucose 113 H 70-106 mg/dl White Blood Count 13.2 H 4.4-10.8 10^3/uL Red Blood Count 3.18 L 4.5-5.90 10^6/uL Hemoglobin 8.6 #L 13.5-17.5 g/dL Hematocrit 27.0 #L 41.0-53.0 % Mean Corpuscular Volume 84.9 80.0-100.0 fL Mean Corpuscular Hemoglobin 27.1 L 28.0-32.0 pg Mean Corpuscular Hemoglobin Concent 31.9 L 32.0-36.0 g/dL Red Cell Distribution Width 15.1 H 11.8-14.3 % Platelet Count 184 140-450 10^3/uL Mean Platelet Volume 9.1 6.9-10.8 fL Neutrophils (%) (Auto) 83.8 H 37.0-80.0 % Lymphocytes (%) (Auto) 6.6 L 10.0-50.0 % Monocytes (%) (Auto) 9.2 0.0-12.0 % Eosinophils (%) (Auto) 0.3 0.0-7.0 % Basophils (%) (Auto) 0.1 0.0-2.0 % Neutrophils # (Auto) 11.1 H 1.6-8.6 10 ^3/uL Lymphocytes # (Auto) 0.9 0.4-5.4 10 ^3/uL Monocytes # (Auto) 1.2 0-1.3 10 ^3/uL Eosinophils # (Auto) 0 0-0.8 10 ^3/uL Basophils # (Auto) 0 0-0.2 10 ^3/uL Nucleated Red Blood Cells 0.1 % Sodium Level 136 136-145 mmol/L Potassium Level 3.3 L 3.5-5.1 mmol/L Chloride Level 99 98-107 mmol/L Carbon Dioxide Level 29 20-31 mmol/L Anion Gap 8 5-15 Blood Urea Nitrogen 22 9-23 mg/dL Creatinine 1.63 H 0.700-1.30 mg/dL Glomerular Filtration Rate Calc 42 >90 mL/min BUN/Creatinine Ratio 13.5 10.0-20.0 Serum Glucose 117 H 74-106 mg/dL Calcium Level 8.1 L 8.7-10.4 mg/dL Phosphorus Level 2.5 2.4-5.1 mg/dL Magnesium Level 1.6 1.6-2.6 mg/dL Triglycerides Level 74 < 150 mg/dL Cholesterol Level 95 < 200 mg/dL LDL Cholesterol 41 < 100 mg/dL HDL Cholesterol 34 L 40-59 mg/dL Lipase 19 12-53 U/L Vitamin B12 Level 452 211-911 pg/mL Vitamin D 25-Hydroxy 84.7 30.0-100 ng/mL Thyroid Stimulating Hormone (TSH) 1.88 0.55-4.78 uIU/mL Current Medications Medications (Trade) Dose Ordered Sig/Melanie Route Start Time Stop Time Status Last Admin Sodium Chloride 500 ml @ 500 mls/hr Q1H ONCE IV 02/27/25 09:15 02/27/25 10:14 DC 02/27/25 09:12 Time of 1ST Reevaluation: 08:05 Reevaluation 1ST: Unchanged Patient Education/Counseling: Diagnosis, Treatment, Prognosis Family Education/Counseling: No Family Present SEPSIS Sepsis Screen Physician Orders Chest Portable (02/27/25 08:12) Electrocardigram (02/27/25 08:12) Electrocardigram (02/27/25 09:12) Electrocardigram (02/27/25 11:12) Vital Signs Date Time Temp Pulse Resp B/P (MAP) Pulse Ox O2 Delivery O2 Flow Rate FiO2 02/27/25 12:00 60 12 98/52 (67) 98 02/27/25 10:57 Room Air* 0 02/27/25 10:30 97.4 65 14 130/68 (88) 97 97.4 02/27/25 08:43 61 02/27/25 08:25 61 14 97 Room Air* 0 21 02/27/25 08:25 97.7 64 14 108/66 (80) 97 97.7 02/27/25 07:56 97.9 68 18 119/62 98 97.9 Laboratory Tests Test 02/27/25 08:22 White Blood Count 13.2 10^3/uL (4.4-10.8) H Medications Medications Dose Ordered Sig/Melanie Route Start Time Stop Time Status Last Admin Dose Admin Sodium Chloride 500 ml @ 500 mls/hr Q1H ONCE IV 02/27/25 09:15 02/27/25 10:14 DC 02/27/25 09:12 Departure 1 Departure Time of Disposition: 17:38 (Interest came hypotensive concerning for electrolyte imbalance versus sepsis versus cardiac arrhythmia) Impression: Primary Impression: Hypotension Additional Impressions: Generalized weakness Acute metabolic encephalopathy ESRD (end stage renal disease) Disposition: ADMITTED INPATIENT Admit to: Tele Condition: Guarded Critical Care Note Critical Care Time?: Yes Critical care comment: Hypotension Authorized and Performed by: Tamar Cowan MD Total critical care time: Approximately 39 minutes Due to a high probability of clinically significant, life threatening deterioration, the patient required my highest level of preparedness to intervene emergently and I personally spent this critical care time directly and personally managing the patient. This critical care time included obtaining a history; examining the patient; pulse oximetry; ordering and review of studies; arranging urgent treatment with development of a management plan; evaluation of patient's response to treatment; frequent reassessment; and, discussions with other providers. This critical care time was performed to assess and manage the high probability of imminent, life-threatening deterioration that could result in multi-organ failure. It was exclusive of separately billable procedures and treating other patients and teaching time. Please see my other sections and the rest of the note for further information on patient assessment and treatment. Stability Stability form required: No I personally scribed for TAMAR COWAN MD ([email or web address]) on 02/27/25 at 08:08. Electronically submitted by Janelle Rosenberg ([facility]). TAMAR COWAN MD Feb 27, 2025 08:08
[2025-02-27 08:25] VITALS: PULSE 61; RESP 14; O2SAT 97
[2025-02-27 08:45] LABS: Hematocrit 27.0 % (41.0-53.0); Hemoglobin 8.6 g/dL (13.5-17.5); Mean Corpuscular Hemoglobin 27.1 pg (28.0-32.0); Mean Corpuscular Volume 84.9 fL (80.0-100.0); Nucleated Red Blood Cells % 0.1 %
[2025-02-27 08:55] LABS: Chloride 99 mmol/L (98-107)
[2025-02-27 08:56] LABS: Anion Gap 8 (5-15); Carbon Dioxide 29 mmol/L (20-31)
[2025-02-27 09:00] LABS: Calcium 8.1 mg/dL (8.7-10.4); Potassium 3.3 mmol/L (3.5-5.1); Sodium 136 mmol/L (136-145)
[2025-02-27 09:02] LABS: BUN/Creatinine Ratio 13.5 (10.0-20.0); Blood Urea Nitrogen 22 mg/dL (9-23)
[2025-02-27 09:03] LABS: Glucose 117 mg/dL (74-106)
--- NOTE | 2025-02-27 09:09 | DVH ---
EXAM: XY CHEST PORTABLE Indication: weakness Technique: Single frontal view of the chest was obtained Comparison: XY CHEST XRAY 1 VIEW on DOS: 02/13/25, XY CHEST XRAY 1 VIEW on DOS: 02/12/25, XY CHEST XRAY 1 VIEW on DOS: 02/10/25 FINDINGS: Lines and Tubes: Right central venous catheter tip projects over superior vena cava. Lungs: Pulmonary vascular congestion and trace bilateral pleural effusions. No pneumothorax. Cardiomediastinal contours: Cardiomegaly. Bones: No acute osseous abnormality. IMPRESSION: Cardiomegaly with pulmonary vascular congestion and trace bilateral pleural effusions.
[2025-02-27] MEDS: SODIUM CHLORIDE 0.9% 500 ML IV ONE (09:12)
[2025-02-27] MEDS ORDERED: MORPHINE SULFATE INJ 2 MG/ml SYRG IV PRN (13:15)
--- NOTE | 2025-02-27 13:15 | DVHHPRES ---
History of Present Illness Resident Creating Document: KEVIN SOLOMON RESIDENT History of Present Illness Jeffery Nixon is a 79 year old male patient who presents to the ED via EMS due to hypotension during HD session. Per who is at bedside, the morning before going to his HD session, it was difficult to arouse him from his sleep, and when he finally woke up, he had a transient episode of loss of consciousness after standing from the bed which lasted 3 minutes and presented head trauma, with posterior altered mental status for another 3 minutes. PAtient also reports he has been feeling dizzy and with generalized weakness lately. Patient had a recent hospitalization where he was diagnosed with secondary angina due to ESRD secondary to post renal obstruction and multiple UTIs, requiring his first HD sessions 2 weeks previous to this new admission, and he was placed a tunnelled catheter. reports that patient was recently started in Lunesta, Lisinopril and Naproxen. Denies any other associated symptoms. Past medical history: Dyslipidemia, ESRD secondary to post renal obstruction and multiple UTI on hemodialysis three times weekly (MWF), BPH s/p TURP, chronic back pain s/p cervical spinal surgery and spinal stimulator placement, osteoporosis, depression, gastritis Surgical history: Cervical spine surgery, spinal stimulator placement, tunnelled catheter in right subclavian. Family history: Non contributory Social history: Lives in [place] with (BUD). Denies current tobacco, alcohol and other drug abuse Allergies: Denies Home medication: Naproxen, Lunesta, Lisinopril, Alendronate, Omeprazoles, Duoloxetine, gabapentin, docusate, atorvastatin, tamsulosin. Patient seen and examined at bedside. currently has no new complains. Admitted for further management. Past Medical History Per HPI Past Surgical History Per HPI Family History Per HPI Past Social History Per HPI Review of Systems Review of Systems Per HPI Allergies: Coded Allergies: NO KNOWN ALLERGIES (Unverified , 01/11/23) Exam Vital Signs Vital Signs Date Time Temp Pulse Resp B/P (MAP) Pulse Ox O2 Delivery O2 Flow Rate FiO2 02/27/25 10:57 Room Air* 0 21 02/27/25 10:30 97.4 65 14 130/68 (88) 97 97.4 Exam Patient lying in bed, in no acute distress General: Lucid, afebrile, mucosae are dry Cardiovascular: Normal S1 and S2. No murmurs, gallops or rubs Respiratory: Normal ventilation mechanics. Clear lung sounds on auscultation Abdomen: Soft, no tenderness, no organomegaly, increased bowel sounds MSK/skin: Mobilizes 4 limbs. Skin is dry and warm Neurological: Oriented in 3 spheres. No motor no sensitive deficits. Pupils are isocoric and reactive Labs/Xrays Labs Test 02/27/25 11:23 02/27/25 10:49 02/27/25 08:22 Range/Units Troponin I High Sensitivity 10 </=54 ng/L POC Glucose 113 H 70-106 mg/dl White Blood Count 13.2 H 4.4-10.8 10^3/uL Red Blood Count 3.18 L 4.5-5.90 10^6/uL Hemoglobin 8.6 #L 13.5-17.5 g/dL Hematocrit 27.0 #L 41.0-53.0 % Mean Corpuscular Volume 84.9 80.0-100.0 fL Mean Corpuscular Hemoglobin 27.1 L 28.0-32.0 pg Mean Corpuscular Hemoglobin Concent 31.9 L 32.0-36.0 g/dL Red Cell Distribution Width 15.1 H 11.8-14.3 % Platelet Count 184 140-450 10^3/uL Mean Platelet Volume 9.1 6.9-10.8 fL Neutrophils (%) (Auto) 83.8 H 37.0-80.0 % Lymphocytes (%) (Auto) 6.6 L 10.0-50.0 % Monocytes (%) (Auto) 9.2 0.0-12.0 % Eosinophils (%) (Auto) 0.3 0.0-7.0 % Basophils (%) (Auto) 0.1 0.0-2.0 % Neutrophils # (Auto) 11.1 H 1.6-8.6 10 ^3/uL Lymphocytes # (Auto) 0.9 0.4-5.4 10 ^3/uL Monocytes # (Auto) 1.2 0-1.3 10 ^3/uL Eosinophils # (Auto) 0 0-0.8 10 ^3/uL Basophils # (Auto) 0 0-0.2 10 ^3/uL Nucleated Red Blood Cells 0.1 % Sodium Level 136 136-145 mmol/L Potassium Level 3.3 L 3.5-5.1 mmol/L Chloride Level 99 98-107 mmol/L Carbon Dioxide Level 29 20-31 mmol/L Anion Gap 8 5-15 Blood Urea Nitrogen 22 9-23 mg/dL Creatinine 1.63 H 0.700-1.30 mg/dL Glomerular Filtration Rate Calc 42 >90 mL/min BUN/Creatinine Ratio 13.5 10.0-20.0 Serum Glucose 117 H 74-106 mg/dL Calcium Level 8.1 L 8.7-10.4 mg/dL SEPSIS Sepsis Screen Date sepsis recognized/suspect: Feb 27, 2025 Time Sepsis recognized/suspect: 844 Recent Procedure: No On Antibiotic Therapy: No Respiratory Rate >20: No Heart Rate >90: No Temp<36 C (96.8 F) or >38.3 C: No SBP <90 or MAP <65 mmHG: No New Acute Mental Status Change: No Is the patient on CPAP, BIPAP,: No Physician Orders Chest Portable (02/27/25 08:12) Electrocardigram (02/27/25 08:12) Electrocardigram (02/27/25 09:12) Electrocardigram (02/27/25 11:12) Admit (02/27/25 13:09) Code Status (02/27/25 13:09) Acetaminophen Tablet (Tylenol Tablet) (02/27/25 13:15) Ondansetron Hcl (Zofran) (02/27/25 13:15) Complete Blood Count (02/28/25 04:00) Comprehensive Metabolic Panel (02/28/25 04:00) Npo (Nothing By Mouth) Diet (02/27/25 Lunch) Echo 2d Mode Cardiac Dop (02/27/25 13:09) Morphine Sulfate Injection (02/27/25 13:15) Oxygen By Nasal Cannula (02/27/25 13:09) Stat Ekg For Chest Pain (02/27/25 13:09) Notify Of Changes From Base (02/27/25 13:09) Recruiting Scheduler For 24 Hours (02/27/25 13:09) Emergency Dysrhythmia Protocol (02/27/25 13:09) Rhythm Strips Once Every Shift (02/27/25 13:09) Vitamin D, 25-Hydroxy (02/27/25 13:09) Vitamin B12 (02/27/25 13:09) Urinalysis (02/27/25 13:09) Thyroid Stimulating Hormone (02/27/25 13:09) PTPTT (02/27/25 13:09) Phosphorus (02/27/25 13:09) Magnesium (02/27/25 13:09) Lipid Panel (02/27/25 13:09) Lipase (02/27/25 13:09) Lactic Acid W/ Reflex Order (02/27/25 13:09) Hemoglobin A1c (02/27/25 13:09) Drug Screen (02/27/25 13:09) Ammonia (02/27/25 13:09) Blood Culture (02/27/25 13:09) Urine Bacterial Culture (02/27/25 13:09) Respiratory Culture W/ Gs (02/27/25 13:09) Covid19 Antigen Sveta (02/27/25 ) Rapid Influenza A&B (02/27/25 13:09) Mrsa Screen (02/27/25 13:09) *[facility] (02/27/25 13:09) Vital Signs Date Time Temp Pulse Resp B/P (MAP) Pulse Ox O2 Delivery O2 Flow Rate FiO2 02/27/25 10:57 Room Air* 0 21 02/27/25 10:30 97.4 65 14 130/68 (88) 97 97.4 02/27/25 08:43 61 02/27/25 08:25 61 14 97 Room Air* 0 21 02/27/25 08:25 97.7 64 14 108/66 (80) 97 97.7 02/27/25 07:56 97.9 68 18 119/62 98 97.9 Laboratory Tests Test 02/27/25 08:22 White Blood Count 13.2 10^3/uL (4.4-10.8) H Medications Medications Dose Ordered Sig/Melanie Route Start Time Stop Time Status Last Admin Dose Admin Sodium Chloride 500 ml @ 500 mls/hr Q1H ONCE IV 02/27/25 09:15 02/27/25 10:14 DC 02/27/25 09:12 500 MLS/HR Assessment/Plan Assessment/Plan ASSESSMENT Complicated UTI Probable orthostatic syncope Rule out severe pericardial effusion Hypokalemia ESRD on HD sessions three times a week (MWF) Normocytic anemia probably secondary to above Dyslipidemia Obesity Osteoporosis Chronic back pain BPH s/p TURP Depression Gastritis History of multiple UTIs PLAN Patient admitted to telemetry Ordered orthostatic vital signs, head CT and carotid US. Ordered pancultures Currently under empiric IV antibiotics (Ceftriaxone) Ordered echocardiogram to evaluate pericardial effusion (on CXR, cardiac silhouette is more prominent) Patient recently started on Naproxen, Lunesta and Lisinopril, will hold these medications. Consulted nephrology for continuation of HD sessions. Hold on home medication that can produce hypotension (Tamsulosin) Goals of care discussed with patient for over 18 minutes: Full code status (except if patient is in a vegetative state, then DNR/DNI) Discussed plan with Dr Hannon, patient and nurses: Currently on Telemetry status. Under empiric IV antibiotics, scarce fluid resuscitation due to ESRD. Ordered echocardiogram, head CT and carotid US. Plan discussed with: Patient, Spouse, Daughter, Other (Nurses) My Orders Orders - KEVIN SOLOMON RESIDENT Procedure Category Date Status Time Admit ADMIT 02/27/25 Transmitted 13:09 Code Status CODE 02/27/25 Transmitted 13:09 Acetaminophen Tablet PHA 02/27/25 Transmitted (Tylenol Tablet) 13:15 Ondansetron Hcl PHA 02/27/25 Verified (Zofran) 13:15 Complete Blood Count LAB 02/28/25 Verified 04:00 Comprehensive LAB 02/28/25 Verified Metabolic Panel 04:00 Npo (Nothing By DIET 02/27/25 Verified Mouth) Diet Lunch Echo 2d Mode Cardiac US 02/27/25 Verified DOP 13:09 Morphine Sulfate PHA 02/27/25 Verified Injection 13:15 Oxygen By Nasal RT 02/27/25 Verified Cannula 13:09 Stat Ekg For Chest [facility] 02/27/25 Verified Pain 13:09 Notify Of Changes [facility] 02/27/25 Verified From Base 13:09 Recruiting Scheduler For [facility] 02/27/25 Verified 24 Hours 13:[address] [facility] 02/27/25 Verified Protocol 13:[address] [facility] 02/27/25 Verified Every Shift 13:09 Vitamin D, 25-Hydroxy LAB 02/27/25 Verified 13:09 Vitamin B12 LAB 02/27/25 Verified 13:09 Urinalysis LAB 02/27/25 Verified 13:09 Thyroid Stimulating LAB 02/27/25 Verified Hormone 13:09 PTPTT LAB 02/27/25 Verified 13:09 Phosphorus LAB 02/27/25 Verified 13:09 Magnesium LAB 02/27/25 Verified 13:09 Lipid Panel LAB 02/27/25 Verified 13:09 Lipase LAB 02/27/25 Verified 13:09 Lactic Acid W/ Reflex LAB 02/27/25 Verified Order 13:09 Hemoglobin A1c LAB 02/27/25 Verified 13:09 Drug Screen LAB 02/27/25 Verified 13:09 Ammonia LAB 02/27/25 Verified 13:09 Blood Culture LI 02/27/25 Verified 13:09 Urine Bacterial IL 02/27/25 Verified Culture 13:09 Respiratory Culture LI 02/27/25 Verified W/ Gs 13:09 Covid19 Antigen Sveta LAB 02/27/25 Verified Rapid Influenza A&B LAB 02/27/25 Verified 13:09 Mrsa Screen LI 02/27/25 Verified 13:09 *[facility] CONS 02/27/25 Verified -[place] 13:09 Date of Service: Feb 27, 2025 Billing Provider: ELIZABETH HANNON MD Common Visit Codes: 20660-[id number] INP/OBS CARE (HIGH) Secondary Visit Codes: 32149-[id number] CARE PLAN 30 MINUTES KEVIN SOLOMON RESIDENT Feb 27, 2025 13:15
[2025-02-27 14:02] LABS: Triglycerides 74.0 mg/dL (< 150)
[2025-02-27 14:03] LABS: Magnesium 1.6 mg/dL (1.6-2.6)
[2025-02-27 14:04] LABS: Cholesterol 95.0 mg/dL (< 200)
[2025-02-27 14:05] LABS: HDL Cholesterol 34.0 mg/dL (40-59)
[2025-02-27 14:11] LABS: INR 1.14 (0.9-1.15); Partial Thromboplastin Time 32.9 SEC (24.5-34.5); Prothrombin Time 11.9 sec (9.3-11.8)
[2025-02-27 14:19] LABS: Lipase 19.0 U/L (12-53)
[2025-02-27] MEDS: ONDANSETRON HCL 4 MG/2 ML VIAL IV PRN (14:38)
[2025-02-27] MEDS: ACETAMINOPHEN 325 MG TAB PO PRN (14:44)
[2025-02-27] MEDS: ACETAMINOPHEN 325 MG TAB PO ONE (14:45)
[2025-02-27] MEDS: ONDANSETRON HCL 4 MG/2 ML VIAL ONE (14:48)
[2025-02-27 15:02] LABS: COVID19 ANTIGEN SOFIA FIA NEGATIVE (NEGATIVE)
--- NOTE | 2025-02-27 15:27 | DVH ---
US CAROTID DUPLX W COLOR DOP History: Syncope Comparison: None Technique: Phillips-scale, Color and Duplex Doppler imaging of the bilateral carotid systems was performed. Findings: Mild atherosclerotic plaque present in the left carotid bulb. The following flow velocities were obtained: Right Carotid System: ICA PSV: 109 cm/sec ICA PDV: 34 cm/sec ICA/CCA Ratio: 1.1 Left Carotid System: ICA PSV: 98 cm/sec ICA PDV: 31 cm/sec ICA/CCA Ratio: 1.0 Bilateral common carotid, external carotid arteries, and vertebral arteries are patent. IMPRESSION: RIGHT ICA STENOSIS PER *SRU CRITERIA: NO SIGNIFICANT STENOSIS. LEFT ICA STENOSIS PER *SRU CRITERIA: LESS THAN 50%. Estimation of carotid stenosis is based on velocity parameters that correlate the residual internal carotid diameter with that of the more distal vessel in accordance with the [place] Symptomatic Carotid Endarterectomy Trial (NASCET)
--- NOTE | 2025-02-27 16:34 | DVH ---
CT HEAD WITHOUT CONTRAST INDICATION: Syncope with head trauma EXAM DATE: 02/27/2025 04:00 PM COMPARISON: None RADIATION DOSE: CTDIvol: 32.9 mGy, DLP: 629.3 mGy*cm PROCEDURE: CT scans of the head were obtained from the vertex to the skull base. Sagittal and coronal reconstructions were provided. All CT scans at this medical facility are performed using dose modulation techniques as appropriate to a performed exam including the following: Automated exposure control was utilized; adjustment of the MA and/or KV according to patient size; and use of iterative reconstruction technique. FINDINGS: Motion artifact degrades fine detail. No acute territorial infarct, intracranial hemorrhage, or mass effect. There are global involutional changes with compensatory prominence of the ventricles and sulci. Patchy periventricular and subcortical white matter hypoattenuation is nonspecific but may be related to small vessel ischemic disease. Bilateral lens implants. The paranasal sinuses and mastoid air cells are clear. The osseous structures are unremarkable. IMPRESSION: 1. No acute territorial infarct, intracranial hemorrhage, or mass effect. 2. Age-related involutional changes. Chronic microvascular changes. 3. If clinical symptoms persist, MRI may be beneficial in further evaluation.
--- NOTE | 2025-02-27 16:40 | DVHINCON2 ---
Date of service: Feb 27, [address] Rachel Kaufman Reason for Consultation ESRD History of Present Illness Mr. Nixon is a 79-year-old male with known history of end-stage renal disease on hemodialysis Sunday who presented for further evaluation and management of generalized weakness, lethargy and altered mental status. He was seen in the emergency department, patient's family members were at the bedside. Mr. Nixon was awake and alert currently. He was in no acute distress. He received approximately 2 hours of hemodialysis earlier today prior to coming to the emergency department and [facility]. Currently denies chest pain, recent fevers, rigors, abdominal pain, diarrhea, PND or orthopnea. Past Medical History ESRD Diabetes Anemia Dyslipidemia Secondary hyperparathyroidism Hypertension Neuropathy Allergies: Coded Allergies: NO KNOWN ALLERGIES (Unverified , 01/11/23) Home Meds Active Scripts Levofloxacin Hemihydrate (LEVAQUIN 500 MG) 500 Mg Tab, 500 MG PO DAILY for 7 Days, #7 TAB Prov:ANNA FUENTES DO 02/20/25 Hydrocodone-Acetaminophen (Hydrocodone Bitartrate/AC 5-325 mg) 1 Tab Tab, 1 TAB PO Q6HPRN PRN, #20 TAB Prov:LEONIDES SIM MD 01/12/23 Reported Medications Eszopiclone (Eszopiclone) 3 Mg Tab, 1 TAB PO QHSP PRN for FOR INSOMNIA 02/16/25 Docusate Sodium (Docusate Sodium) 100 Mg Cap, 1 CAP PO TID PRN for constipation 01/12/23 Duloxetine HCl (Duloxetine HCl) 30 Mg Cap, 3 CAP PO DAILY 01/12/23 Omeprazole (Omeprazole Dr) 40 Mg Cap, 1 CAP PO DAILY 01/12/23 Alendronate Sodium (Alendronate Sodium) 70 Mg Tab, 1 TAB PO QWEEKLY 01/12/23 Tamsulosin Hcl (Tamsulosin Hcl) 0.4 Mg Cap, 2 CAP PO DAILY 01/12/23 Ferrous Sulfate (Ferosul) 325 Mg Tab, 1 TAB PO BID 01/12/23 Atorvastatin Calcium (ATORVASTATIN CALCIUM) 40 Mg Tab, 1 TAB PO 01/12/23 Pregabalin (Pregabalin) 150 Mg Cap, 1 CAP PO TID 01/11/23 Trazodone HCl (Trazodone Hydrochorlide) 150 Mg Tab, 1 TAB PO 01/11/23 Current Medications Current Medications Medications (Trade) Dose Ordered Sig/Melanie Route PRN Reason Start Time Stop Time Status Last Admin Acetaminophen (Tylenol Tablet) 325 mg Q4HP PRN PO MILD PAIN (1-3 PAIN SCALE) 02/27/25 13:15 02/27/25 14:44 Ondansetron HCl (Zofran) 4 mg Q4HP PRN IV NAUSEA / VOMITING 02/27/25 13:15 02/27/25 14:38 Morphine Sulfate 2 mg Q4HPRN PRN IV SEVERE PAIN (7-10 PAIN SCALE) 02/27/25 13:15 Ceftriaxone Sodium 50 ml @ 100 mls/hr DAILY@09 IV 02/28/25 09:00 Family History: Diabetes mellitus G8 MOTHER Review of Systems As per history of present illness otherwise all systems are reviewed and are noncontributory. H&P Exam Vital Signs/I&O Vital Sign Date Time Temp Pulse Resp B/P (MAP) Pulse Ox O2 Delivery O2 Flow Rate FiO2 02/27/25 16:10 98.0 68 14 116/55 (75) 95 98.0 02/27/25 10:57 Room Air* 0 21 Physical Exam Gen: nad heent: nc/at, mmm lungs: cta anteriorly cvs: no rub abd: soft, bowel sounds audible ext: no edema skin: no rash neuro: alert and oriented Labs/Diagnostic Data Labs/Diagnostic Data Laboratory Tests Test 02/27/25 16:12 02/27/25 14:33 02/27/25 13:48 02/27/25 11:23 Range/Units Influenza Type A Antigen Negative Negative Influenza Type B Antigen Negative Negative SARS-CoV-2 Antigen (Rapid) Negative NEGATIVE Lactic Acid Level 1.1 0.4-2.0 mmol/L Ammonia < 10 L 11-32 umol/L Prothrombin Time 11.9 H 9.3-11.8 sec Prothrombin Time INR 1.14 0.9-1.15 Activated Partial Thromboplast Time 32.9 24.5-34.5 SEC Troponin I High Sensitivity 10 </=54 ng/L Test 02/27/25 10:49 02/27/25 09:26 02/27/25 08:22 Range/Units POC Glucose 113 H 70-106 mg/dl Troponin I High Sensitivity 11 12 </=54 ng/L White Blood Count 13.2 H 4.4-10.8 10^3/uL Red Blood Count 3.18 L 4.5-5.90 10^6/uL Hemoglobin 8.6 #L 13.5-17.5 g/dL Hematocrit 27.0 #L 41.0-53.0 % Mean Corpuscular Volume 84.9 80.0-100.0 fL Mean Corpuscular Hemoglobin 27.1 L 28.0-32.0 pg Mean Corpuscular Hemoglobin Concent 31.9 L 32.0-36.0 g/dL Red Cell Distribution Width 15.1 H 11.8-14.3 % Platelet Count 184 140-450 10^3/uL Mean Platelet Volume 9.1 6.9-10.8 fL Neutrophils (%) (Auto) 83.8 H 37.0-80.0 % Lymphocytes (%) (Auto) 6.6 L 10.0-50.0 % Monocytes (%) (Auto) 9.2 0.0-12.0 % Eosinophils (%) (Auto) 0.3 0.0-7.0 % Basophils (%) (Auto) 0.1 0.0-2.0 % Neutrophils # (Auto) 11.1 H 1.6-8.6 10 ^3/uL Lymphocytes # (Auto) 0.9 0.4-5.4 10 ^3/uL Monocytes # (Auto) 1.2 0-1.3 10 ^3/uL Eosinophils # (Auto) 0 0-0.8 10 ^3/uL Basophils # (Auto) 0 0-0.2 10 ^3/uL Nucleated Red Blood Cells 0.1 % Sodium Level 136 136-145 mmol/L Potassium Level 3.3 L 3.5-5.1 mmol/L Chloride Level 99 98-107 mmol/L Carbon Dioxide Level 29 20-31 mmol/L Anion Gap 8 5-15 Blood Urea Nitrogen 22 9-23 mg/dL Creatinine 1.63 H 0.700-1.30 mg/dL Glomerular Filtration Rate Calc 42 >90 mL/min BUN/Creatinine Ratio 13.5 10.0-20.0 Serum Glucose 117 H 74-106 mg/dL Calcium Level 8.1 L 8.7-10.4 mg/dL Phosphorus Level 2.5 2.4-5.1 mg/dL Magnesium Level 1.6 1.6-2.6 mg/dL Triglycerides Level 74 < 150 mg/dL Cholesterol Level 95 < 200 mg/dL LDL Cholesterol 41 < 100 mg/dL HDL Cholesterol 34 L 40-59 mg/dL Lipase 19 12-53 U/L Vitamin B12 Level 452 211-911 pg/mL Vitamin D 25-Hydroxy 84.7 30.0-100 ng/mL Thyroid Stimulating Hormone (TSH) 1.88 0.55-4.78 uIU/mL Assessment IMP: 1) ESRD on dialysis 2) generalized weakness 3) type 2 diabetes 4) hypertension 5) 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 - we will check iron studies - we will continue with thrice weekly maintenance hemodialysis as inpatient - clinically stable from Nephrology perspective with regard to metabolic and volume status today. - thank you for the consultation, discussed plan of care from Nephrology perspective with patient's family Plan discussed with: Spouse EV MORRISON MD Feb 27, 2025 16:40
[2025-02-27 16:51] LABS: Urine Protein, UAD TRACE (Negative)
[2025-02-27 16:54] LABS: Protein, Urine 63.2 mg/dL (1-14)
[2025-02-27 16:57] LABS: Opiate Scree,Urine Neg (NEGATIVE); Phencyclidine Screen, Urine Neg (NEGATIVE)
[2025-02-27 16:58] LABS: Amphetamine Screen, Urine Neg (NEGATIVE); Barbiturate Scree,Urine Neg (NEGATIVE); Benzodiazephine Screen, Urine Neg (NEGATIVE); Cannabinoid Screen, Urine Neg (NEGATIVE); Cocaine Screen, Urine Neg (NEGATIVE)
[2025-02-27 20:00] VITALS: PULSE 60
[2025-02-27 21:00] VITALS: BP 124/66; PULSE 64; RESP 19; TEMP 98.1; O2SAT 93
[2025-02-27 21:33] VITALS: BP 124/66; PULSE 64; RESP 19; TEMP 98.1; O2SAT 93
[2025-02-27] MEDS ORDERED: ATORVASTATIN 20 MG TAB ONE (22:25)
[2025-02-27] MEDS ORDERED: POTASSIUM EFFERVESENT TAB 25 MEQ ONE (22:25)
[2025-02-27] MEDS: POTASSIUM EFFERVESENT TAB 25 MEQ PO ONE (22:29)
[2025-02-27] MEDS: ATORVASTATIN 20 MG TAB PO SCH (22:30)
[2025-02-28] VITALS (9 sets, daily range): BP systolic 131–160; BP diastolic 54–85; PULSE 70–89; RESP 17–90; TEMP 97.5–98.3; O2SAT 90–96
[2025-02-28] MEDS ORDERED: PANTOPRAZOLE 40 MG/10 ML VIAL INJ IV ONE (03:13)
[2025-02-28] MEDS: PANTOPRAZOLE 40 MG/10 ML VIAL INJ IV ONE (03:16)
[2025-02-28 07:12] LABS: Hematocrit 27.6 % (41.0-53.0); Hemoglobin 9.1 g/dL (13.5-17.5); Mean Corpuscular Hemoglobin 27.4 pg (28.0-32.0); Mean Corpuscular Volume 83.0 fL (80.0-100.0); Nucleated Red Blood Cells % 0.6 %
[2025-02-28 07:32] LABS: Total Iron Binding Capacity 422.0 ug/dL (250-425)
[2025-02-28 07:33] LABS: Alanine Aminotransferase 10 U/L (7-40); Alkaline Phosphatase 70 U/L (46-116); Anion Gap 9 (5-15); BUN/Creatinine Ratio 11.3 (10.0-20.0); Calcium 8.8 mg/dL (8.7-10.4); Carbon Dioxide 28 mmol/L (20-31); Chloride 101 mmol/L (98-107); Glucose 92 mg/dL (74-106); Potassium 4.7 mmol/L (3.5-5.1); Sodium 138 mmol/L (136-145); Total Protein 6.0 g/dL (5.7-8.2)
[2025-02-28 07:44] LABS: Albumin 3.1 g/dL (3.2-4.8); Bilirubin, Total 0.2 mg/dL (0.2-1.0); Blood Urea Nitrogen 25 mg/dL (9-23)
[2025-02-28 07:47] LABS: Alanine Aminotransferase < 9 U/L (7-40); Albumin 3.1 g/dL (3.2-4.8); Alkaline Phosphatase 72 U/L (46-116); Bilirubin, Direct < 0.1 mg/dL (<0.3); Total Protein 6.0 g/dL (5.7-8.2)
[2025-02-28 07:48] LABS: Bilirubin, Total 0.2 mg/dL (0.2-1.0); Iron 22.0 ug/dL (65-175)
[2025-02-28] MEDS: PANTOPRAZOLE 40 MG/10 ML VIAL INJ IV SCH (10:35)
--- NOTE | 2025-02-28 11:58 | DVHSR ---
APPROVED REPORT EXAM: LIMITED Two-dimensional and M-mode echocardiogram for pericardial effusion check only. Blood Pressure: 130/68 mmHg INDICATION Probable pericardial effusion RISK FACTORS Height: 70, Weight: 175 DIMENSIONS EF (%) 61.0 (55-70%) Rt. Atrium (1.9-4.0cm) Asc. Aorta cm Mitral Valve Mitral Mitral Stenosis E/A ratio 0.0 2D MVA cm2 Other Information Technically limited study due to for pericardial effusion check only. Conclusion Technically difficult study. Difficult acoustic windows. Limited study. Normal chamber sizes. Mild concentric LVH. Valves appear to be structurally normal. Mild aortic sclerosis. EF of 55-60% with normal RV function. No evidence for diastolic collapse of the RV or RA. Doppler not obtained. Bycry-lb-scawfiin pericardial effusion that does not appear to be hemodynamically significant. No intracardiac masses thrombi or vegetations discernible.
--- NOTE | 2025-02-28 16:31 | DVHPN2 ---
Progress Note Date Seen: Feb 28, 2025 Medical Necessity Reason Pt with a Central, PICC or Fol: Yes Subjective Patient reports: No new complaints, Feels better Objective vital signs Vital Sign Date Time Temp Pulse Resp B/P (MAP) Pulse Ox O2 Delivery O2 Flow Rate FiO2 02/28/25 13:00 98.0 85 17 134/78 (96) 94 98.0 02/27/25 20:00 Room Air* 0 21 Total Intake and Output 02/27/25 02/27/25 02/28/25 15:00 23:00 07:00 Intake Total 50 ml 0 ml Output Total 700 ml Balance 50 ml -700 ml medications Current Medications Medications Dose Ordered Sig/Melanie Route Start Time Stop Time Status Last Admin Dose Admin Acetaminophen 325 mg Q4HP PRN PO 02/27/25 13:15 02/27/25 14:44 325 MG Ondansetron HCl 4 mg Q4HP PRN IV 02/27/25 13:15 02/27/25 14:38 4 MG Morphine Sulfate 2 mg Q4HPRN PRN IV 02/27/25 13:15 Ceftriaxone Sodium 50 ml @ 100 mls/hr DAILY@09 IV 02/28/25 09:00 02/28/25 10:36 100 MLS/HR Atorvastatin Calcium 40 mg HS PO 02/27/25 22:00 02/27/25 22:30 40 MG Pantoprazole Sodium 40 mg DAILY IV 02/28/25 10:00 02/28/25 10:35 40 MG Aspirin 81 mg DAILY PO 02/28/25 10:00 02/28/25 10:35 81 MG Examination Gen: Appears stated age. NAD Lungs: Bilateral air entry Heart: RRR. normal S1 and S2 Ext: No edema Neuro: Alert and oriented x 3 laboratory and microbiology Laboratory Tests 02/28/25 05:40 Test 02/28/25 05:40 Range/Units Serum Glucose 92 74-106 mg/dL Microbiology Date/Time Source Procedure Growth Status 02/27/25 22:38 Nose MRSA Screen - Final Complete 02/27/25 16:12 Voided Urine Urine Culture - Preliminary No growth Resulted 02/27/25 14:00 Blood Blood Culture - Preliminary NO GROWTH AFTER 24 HOURS OF INCUBATION. Resulted Labs and/or images reviewed: Labs reviewed by me Problem List/Assessment/Plan Problem List/Assessment/Plan IMP: 1) ESRD on dialysis. 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 Aiden Aguilera Plan discussed with: Patient LIZBETH ROCHA TOOL SETTER Feb 28, 2025 16:31
--- NOTE | 2025-02-28 17:14 | DVHPN2 ---
Subjective Patient's chart is reviewed. Discussed with the patient and his at bedside. Feels better. Mentation normal. No complaints. Changes from previous H/P or p: No Changes Objective Vitals Vital Signs Date Time Temp Pulse Resp B/P (MAP) Pulse Ox O2 Delivery O2 Flow Rate FiO2 02/28/25 13:00 98.0 85 17 134/78 (96) 94 98.0 02/27/25 20:00 Room Air* 0 21 Intake/Output Intake and Output 02/28/25 07:00 Intake Total 50 ml Output Total 700 ml Balance -650 ml Intake Oral 0 ml IV Total 50 ml Output Urine Total 700 ml Exam Alert awake oriented x3. at bedside. Comfortable in bed without distress. HEENT neck supple no JVD. Heart regular rate and rhythm S1-S2. Lungs fair air movement without rales or wheezes. Abdomen obese soft nontender positive bowel sounds. Extremities no edema positive pulses. Medications Current Medications Medications Dose Ordered Sig/Melanie Route Start Time Stop Time Status Last Admin Dose Admin Acetaminophen 325 mg Q4HP PRN PO 02/27/25 13:15 02/27/25 14:44 325 MG Ondansetron HCl 4 mg Q4HP PRN IV 02/27/25 13:15 02/27/25 14:38 4 MG Morphine Sulfate 2 mg Q4HPRN PRN IV 02/27/25 13:15 Ceftriaxone Sodium 50 ml @ 100 mls/hr DAILY@09 IV 02/28/25 09:00 02/28/25 10:36 100 MLS/HR Atorvastatin Calcium 40 mg HS PO 02/27/25 22:00 02/27/25 22:30 40 MG Pantoprazole Sodium 40 mg DAILY IV 02/28/25 10:00 02/28/25 10:35 40 MG Aspirin 81 mg DAILY PO 02/28/25 10:00 02/28/25 10:35 81 MG Laboratory Results Laboratory Tests 02/28/25 05:40 Chemistry Test 02/28/25 05:40 Albumin 3.1 g/dL (3.2-4.8) L Calcium Level 8.8 mg/dL (8.7-10.4) Total Protein 6.0 g/dL (5.7-8.2) LFT Test 02/28/25 05:40 Alanine Aminotransferase (ALT) < 9 U/L (7-40) Alkaline Phosphatase 72 U/L (46-116) Aspartate Amino Transferase (AST) 23 U/L (13-40) Direct Bilirubin < 0.1 mg/dL (<0.3) Total Bilirubin 0.2 mg/dL (0.2-1.0) Urinalysis Test 02/27/25 16:12 Urine Color Light-yellow (Yellow) Urine Clarity Turbid (Clear) H Urine pH 5.5 (5.0-9.0) Urine Specific [place] 1.012 (1.001-1.035) Urine Protein Trace (Negative) H Urine Ketones Negative (Negative) Urine Blood 1+ /uL (Negative) H Urine Nitrite Negative (Negative) Urine Bilirubin Negative (Negative) Urine Urobilinogen Normal mg/dL (Negative) Urine Leukocyte Esterase 3+ /uL (Negative) Urine RBC 13 /hpf (0 - 3) Urine Microscopic WBC 156 /HPF (0-3) H Urine Squamous Epithelial Cells None seen /hpf (<5) Urine Bacteria None seen /hpf (None Seen) Urine Creatinine 81.55 mg/dL (30.0-125.0) Urine Sodium 19 mmol/L (40-220) L Urine Glucose Normal mg/dL (Normal) Urine Total Protein 63.2 mg/dL (1-14) H Microbiology Microbiology Date/Time Source Procedure Growth Status 02/27/25 22:38 Nose MRSA Screen - Final Complete 02/27/25 16:12 Voided Urine Urine Culture - Preliminary No growth Resulted 02/27/25 14:00 Blood Blood Culture - Preliminary NO GROWTH AFTER 24 HOURS OF INCUBATION. Resulted Labs and/or images reviewed: Labs reviewed by me Assessment/Plan Assessment/Plan Mentation is normal now. His blood and urine cultures negative for any growth. He is afebrile. Keep his blood pressure in the 120s to 130s range. Transient change in mentation could be result of hypoperfusion with low blood pressure. Consider taking less fluid with the dialysis to maintain the systolic blood pressure above 95 for appropriate brain perfusion. Otherwise continue rest of supportive care and treatment. Monitor him overnight. Further clinical management per clinical course. Discussed with the patient's/ regarding care plan at bedside. Plan discussed with: Patient, Spouse, Other My Orders Orders - ROMULO AVILES MD Procedure Category Date Status Time Renal DIET 02/28/25 Verified Standard(2gna,3gk,Lopho) Dinner Pt Request For Service PT 02/28/25 Verified 17:09 Docusate Sodium PHA 02/28/25 Verified Capsule (Colace 17:15 Duloxetine Hcl PHA 03/01/25 Verified Capsule (Cymbalta 10:00 Tamsulosin PHA 02/28/25 Verified Hydrochloride (Flomax) 18:00 (Nf) Omeprazole PHA 03/01/25 Verified (Omeprazole Dr) 10:00 Problem List: (1) Urinary tract infection (2) Generalized weakness (3) ESRD (end stage renal disease) (4) Hypotension (5) Acute metabolic encephalopathy Date of Service: Feb 28, 2025 Billing Provider: ROMULO AVILES MD Common Visit Codes: [id number] INP/OBS CARE(HIGH) ROMULO AVILES MD Feb 28, 2025 17:14
[2025-02-28] MEDS ORDERED: DOCUSATE SOD 100 MG CAP PO PRN (17:15)
[2025-02-28] MEDS ORDERED: TAMSULOSIN HYDROCHLORIDE 0.4 MG CAP PO SCH (18:00)
[2025-02-28] MEDS ORDERED: TAMSULOSIN HYDROCHLORIDE 0.4 MG CAP PO ONE (21:39)
[2025-02-28] MEDS: TAMSULOSIN HYDROCHLORIDE 0.4 MG CAP PO SCH (21:41)
--- NOTE | 2025-03-01 01:22 | ECG ---
[facility] Test Date: 2025-02-27 Test Time: 08:43:42 Pat Name: CAMERON RASHEED Department: ED Room: [facility] B Gender: M Associate Relations Specialist: DUKE : 1945 Requested By: TAMAR COWAN Order Number: [id number] Reading MD: Yunior Shaver Measurements Intervals [place] Rate: 61 P: 53 AR: 159 QRS: -5 QRSD: 88 T: 12 QT: 434 QTc: 438 Interpretive Statements Sinus rhythm Borderline low voltage, extremity leads Electronically Signed On 03-01-2025 14:44:19 PST by Yunior Shaver Please click the below link to view image of tracing.
[2025-03-01 05:00] VITALS: BP 158/81; PULSE 80; RESP 18; TEMP 97.5; O2SAT 91
[2025-03-01] MEDS ORDERED: PREGABALIN CAPSULE 75 MG CAP ONE (05:16)
[2025-03-01] MEDS: PREGABALIN CAPSULE 75 MG CAP PO ONE (05:16)
[2025-03-01] MEDS ORDERED: CARVEDILOL 3.125 MG TAB ONE (06:45)
[2025-03-01] MEDS: CARVEDILOL 3.125 MG TAB PO ONE (06:47)
[2025-03-01 06:58] LABS: Hematocrit 28.1 % (41.0-53.0); Hemoglobin 9.3 g/dL (13.5-17.5); Mean Corpuscular Hemoglobin 27.4 pg (28.0-32.0); Mean Corpuscular Volume 82.9 fL (80.0-100.0); Nucleated Red Blood Cells % 0.5 %
[2025-03-01 07:05] LABS: Chloride 100 mmol/L (98-107); Potassium 4.4 mmol/L (3.5-5.1); Sodium 141 mmol/L (136-145)
[2025-03-01 07:06] LABS: Anion Gap 11 (5-15); Calcium 9.2 mg/dL (8.7-10.4); Carbon Dioxide 30 mmol/L (20-31)
[2025-03-01 07:11] LABS: BUN/Creatinine Ratio 12.7 (10.0-20.0); Glucose 105 mg/dL (74-106)
[2025-03-01 07:15] LABS: Blood Urea Nitrogen 31 mg/dL (9-23)
[2025-03-01 08:00] VITALS: PULSE 78; PULSE 82; RESP 18
[2025-03-01 09:04] VITALS: BP 142/87; PULSE 78; RESP 18; TEMP 98.4; O2SAT 90
[2025-03-01] MEDS: PANTOPRAZOLE 40 MG TAB PO SCH (10:00)
[2025-03-01] MEDS: IRON SUCROSE COMPLEX 110 ML IV SCH (12:12)
[2025-03-01 12:59] VITALS: BP 139/79; PULSE 67; RESP 16; TEMP 98; O2SAT 94
--- NOTE | 2025-03-01 14:11 | DVHPN2 ---
Progress Note Date Seen: Mar 01, 2025 Medical Necessity Reason Pt with a Central, PICC or Fol: Yes Subjective Patient reports: No new complaints, Feels better Objective vital signs Vital Sign Date Time Temp Pulse Resp B/P (MAP) Pulse Ox O2 Delivery O2 Flow Rate FiO2 03/01/25 12:59 98.0 67 16 139/79 (99) 94 98.0 03/01/25 08:00 Room Air* 0 21 Total Intake and Output 02/28/25 02/28/25 03/01/25 14:59 22:59 06:59 Intake Total 50 ml 600 ml 350 ml Output Total 200 ml Balance 50 ml 600 ml 150 ml medications Current Medications Medications Dose Ordered Sig/Melanie Route Start Time Stop Time Status Last Admin Dose Admin Acetaminophen 325 mg Q4HP PRN PO 02/27/25 13:15 02/27/25 14:44 325 MG Ondansetron HCl 4 mg Q4HP PRN IV 02/27/25 13:15 03/01/25 05:22 4 MG Morphine Sulfate 2 mg Q4HPRN PRN IV 02/27/25 13:15 Ceftriaxone Sodium 50 ml @ 100 mls/hr DAILY@09 IV 02/28/25 09:00 03/01/25 09:18 100 MLS/HR Atorvastatin Calcium 40 mg HS PO 02/27/25 22:00 02/28/25 21:41 40 MG Pantoprazole Sodium 40 mg DAILY IV 02/28/25 10:00 02/28/25 10:35 40 MG Aspirin 81 mg DAILY PO 02/28/25 10:00 03/01/25 10:42 81 MG Docusate Sodium 100 mg BID PRN PO 02/28/25 17:15 Duloxetine HCl 30 mg DAILY PO 03/01/25 10:00 03/01/25 10:42 30 MG Pantoprazole Sodium 40 mg DAILY PO 03/01/25 10:00 Tamsulosin HCl 0.4 mg QPM PO 02/28/25 22:00 02/28/25 21:41 0.4 MG Iron Sucrose 110 ml @ 110 mls/hr DAILY@1200 IV 03/01/25 12:00 03/05/25 11:59 03/01/25 12:12 110 MLS/HR Examination Gen: Appears stated age. NAD Lungs: Bilateral air entry Heart: RRR. normal S1 and S2 Ext: No edema Neuro: Alert and oriented x 3 laboratory and microbiology Laboratory Tests 03/01/25 05:00 Test 03/01/25 05:00 Range/Units Serum Glucose 105 74-106 mg/dL Microbiology Date/Time Source Procedure Growth Status 02/27/25 22:38 Nose MRSA Screen - Final Complete 02/27/25 16:12 Voided Urine Urine Culture - Preliminary No growth Resulted 02/27/25 14:00 Blood Blood Culture - Preliminary NO GROWTH AFTER 24 HOURS OF INCUBATION. Resulted Labs and/or images reviewed: Labs reviewed by me Problem List/Assessment/Plan Problem List/Assessment/Plan IMP: 1) ESRD on dialysis. 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 Aiden Aguilera Plan discussed with: Patient My Orders My Orders Orders - LIZBETH ROCHA Procedure Category Date Status Time Iron Sucrose Complex PHA 03/01/25 In Process (Venofer) 12:00 LIZBETH ROCHA Mar 01, 2025 14:11
[2025-03-01] MEDS ORDERED: TAMS0.4C39 PO (17:09)
[2025-03-01 17:13] VITALS: BP 152/92; PULSE 76; RESP 18; TEMP 97.8; O2SAT 94
--- NOTE | 2025-03-01 17:13 | DVHDS2 ---
Discharge Summary Date of Admission Feb 27, 2025 at 13:09 Date of Discharge: Mar 01, 2025 Labs/Diagnostic Data: Laboratory Results Test 03/01/25 05:00 02/28/25 05:40 02/27/25 16:12 02/27/25 14:33 White Blood Count 7.9 10^3/uL (4.4-10.8) Red Blood Count 3.39 10^6/uL (4.5-5.90) Hemoglobin 9.3 g/dL (13.5-17.5) Hematocrit 28.1 % (41.0-53.0) Mean Corpuscular Volume 82.9 fL (80.0-100.0) Mean Corpuscular Hemoglobin 27.4 pg (28.0-32.0) Mean Corpuscular Hemoglobin Concent 33.0 g/dL (32.0-36.0) Red Cell Distribution Width 14.9 % (11.8-14.3) Platelet Count 206 10^3/uL (140-450) Mean Platelet Volume 9.1 fL (6.9-10.8) Neutrophils (%) (Auto) 71.8 % (37.0-80.0) Lymphocytes (%) (Auto) 14.9 % (10.0-50.0) Monocytes (%) (Auto) 12.4 % (0.0-12.0) Eosinophils (%) (Auto) 0.6 % (0.0-7.0) Basophils (%) (Auto) 0.3 % (0.0-2.0) Neutrophils # (Auto) 5.6 10 ^3/uL (1.6-8.6) Lymphocytes # (Auto) 1.2 10 ^3/uL (0.4-5.4) Monocytes # (Auto) 1.0 10 ^3/uL (0-1.3) Eosinophils # (Auto) 0 10 ^3/uL (0-0.8) Basophils # (Auto) 0 10 ^3/uL (0-0.2) Nucleated Red Blood Cells 0.5 % Sodium Level 141 mmol/L (136-145) Potassium Level 4.4 mmol/L (3.5-5.1) Chloride Level 100 mmol/L (98-107) Carbon Dioxide Level 30 mmol/L (20-31) Anion Gap 11 (5-15) Blood Urea Nitrogen 31 mg/dL (9-23) Creatinine 2.45 mg/dL (0.700-1.30) Glomerular Filtration Rate Calc 26 mL/min (>90) BUN/Creatinine Ratio 12.7 (10.0-20.0) Serum Glucose 105 mg/dL (74-106) Calcium Level 9.2 mg/dL (8.7-10.4) Iron Level 22 ug/dL (65-175) Total Iron Binding Capacity 422 ug/dL (250-425) Percent Iron Saturation 5.2 % (20-55) Total Bilirubin 0.2 mg/dL (0.2-1.0) Direct Bilirubin < 0.1 mg/dL (<0.3) Aspartate Amino Transferase (AST) 23 U/L (13-40) Alanine Aminotransferase (ALT) < 9 U/L (7-40) Alkaline Phosphatase 72 U/L (46-116) Total Protein 6.0 g/dL (5.7-8.2) Albumin 3.1 g/dL (3.2-4.8) Urine Color Light-yellow (Yellow) Urine Clarity Turbid (Clear) Urine pH 5.5 (5.0-9.0) Urine Specific [place] 1.012 (1.001-1.035) Urine Protein Trace (Negative) Urine Ketones Negative (Negative) Urine Blood 1+ /uL (Negative) Urine Nitrite Negative (Negative) Urine Bilirubin Negative (Negative) Urine Urobilinogen Normal mg/dL (Negative) Urine Leukocyte Esterase 3+ /uL (Negative) Urine RBC 13 /hpf (0 - 3) Urine Microscopic WBC 156 /HPF (0-3) Urine Squamous Epithelial Cells None seen /hpf (<5) Urine Bacteria None seen /hpf (None Seen) Urine Creatinine 81.55 mg/dL (30.0-125.0) Urine Sodium 19 mmol/L (40-220) Urine Glucose Normal mg/dL (Normal) Urine Total Protein 63.2 mg/dL (1-14) Urine Opiates Screen Neg (NEGATIVE) Urine Fentanyl Screen Pos (NEGATIVE) Urine Barbiturates Screen Neg (NEGATIVE) Urine Phencyclidine Screen Neg (NEGATIVE) Urine Amphetamines Screen Neg (NEGATIVE) Urine Benzodiazepines Screen Neg (NEGATIVE) Urine Cocaine Screen Neg (NEGATIVE) Urine Cannabinoids Screen Neg (NEGATIVE) Influenza Type A Antigen Negative (Negative) Influenza Type B Antigen Negative (Negative) SARS-CoV-2 Antigen (Rapid) Negative (NEGATIVE) Test 02/27/25 13:48 02/27/25 11:23 02/27/25 10:49 02/27/25 08:22 Lactic Acid Level 1.1 mmol/L (0.4-2.0) Ammonia < 10 umol/L (11-32) Prothrombin Time 11.9 sec (9.3-11.8) Prothrombin Time INR 1.14 (0.9-1.15) Activated Partial Thromboplast Time 32.9 SEC (24.5-34.5) Troponin I High Sensitivity 10 ng/L (</=54) POC Glucose 113 mg/dl (70-106) Phosphorus Level 2.5 mg/dL (2.4-5.1) Magnesium Level 1.6 mg/dL (1.6-2.6) Triglycerides Level 74 mg/dL (< 150) Cholesterol Level 95 mg/dL (< 200) LDL Cholesterol 41 mg/dL (< 100) HDL Cholesterol 34 mg/dL (40-59) Lipase 19 U/L (12-53) Vitamin B12 Level 452 pg/mL (211-911) Vitamin D 25-Hydroxy 84.7 ng/mL (30.0-100) Thyroid Stimulating Hormone (TSH) 1.88 uIU/mL (0.55-4.78) Other Laboratory Tests 03/01/25 05:00 Brief Hx & Hospital Course: Mr. Nixon is a 79-year-old male with known history of end-stage renal disease on hemodialysis Sunday who presented for further evaluation and management of generalized weakness, lethargy and altered mental status. He was seen in the emergency department, patient's family members were at the bedside. Mr. Nixon was awake and alert currently. He was in no acute distress. He received approximately 2 hours of hemodialysis earlier today prior to coming to the emergency department and [facility]. Currently denies chest pain, recent fevers, rigors, abdominal pain, diarrhea, PND or orthopnea. He is admitted and patient had a one documented hypotensive episode. [place] his symptoms were secondary to brief hypotension. Patient had head CT which is normal. With patient's blood cultures and urine culture negative for any infection. His labs and blood pressure have been normal. Systolic blood pressure ranging between 140-160. Patient and his at bedside educated to keep his blood pressure between 110-150/70-85. He is advised to check his blood pressure daily. Otherwise while in the hospital patient is ambulating. His symptoms resolved. Feeling better back to baseline normal status. Therefore it is felt he could be safely discharged home. I have talked with the patient and his along with the nurse at bedside today regarding his hospital diagnosis, treatment he received, discharge medications, discharge instructions and follow- up plan of care. They have verbalized understanding of these and agree with the care plan as outlined. Condition at Discharge: Stable Final Diagnosis/Problems List Transient hypotension post dialysis resolved, hypertension, end-stage renal disease on hemodialysis 3 times a week, generalized weakness, history of BPH Discharge Disposition: Home Discharge Instruct/Medications Diet: Consistent carbohydrate, Cardiac 2g Na,low cholest Activity: No Restrictions, As Tolerated Follow Up/Referral: Dialysis 3 times a week as your scheduled Medications: Cut down your Flomax to one tablet and take it at bedtime. Scheduled Alendronate Sodium (Alendronate Sodium), 1 TAB PO QWEEKLY, (Reported) Duloxetine HCl (Duloxetine HCl), 3 CAP PO DAILY, (Reported) Levofloxacin Hemihydrate (Levaquin 500 Mg), 500 MG PO DAILY Omeprazole (Omeprazole Dr), 1 CAP PO DAILY, (Reported) Tamsulosin Hcl (Tamsulosin Hcl), 1 CAP PO HS Scheduled PRN Docusate Sodium (Docusate Sodium), 1 CAP PO TID PRN for constipation, (Reported) Miscellaneous Medications Atorvastatin Calcium (Atorvastatin Calcium), 1 TAB PO, (Reported) Discharge Statement: "Patient was advised to return to the ER or call 911 if any headaches, dizziness, shortness of breath, chest pain, abdominal pain, bleeding, fevers, or worsening of medical condition. Patient was counseled about treatment plan, medications, possible side effects, patientverbalized understanding. All questions were answered to the best of my ability. This discharge took greater then 30 minutes in planning, reviewing documentation, counseling the patient, and discussing with other team members." ASSESSMENT ASSESSMENT Assessment Transient hypotension post dialysis resolved, hypertension, end-stage renal disease on hemodialysis 3 times a week, generalized weakness, history of BPH Date of Service: Mar 01, 2025 Billing Provider: ROMULO AVILES MD Common Visit Codes: 07984-CLE/OBS DISCH DAY >30min ROMULO AVILES MD Mar 01, 2025 17:13
[2025-03-01 17:44] VITALS: BP 158/81; PULSE 80; TEMP 36.6
== END 2025-03-01 18:20 | disposition home or self-care (01) | DRG 312 ==
LOC: ER 07:51 → EDBD 07:51 → OVERFLOW 13:09 → TELE-WESTW 18:23
PROVIDERS: ADMIT Student in an Organized Health Care Education/Training Program; ATTEND Internal Medicine Nephrology
DX: I95.3 Hypotension of hemodialysis (principal); N18.6 End stage renal disease; G93.41 Metabolic encephalopathy; I12.0 Hypertensive chronic kidney disease with stage 5 chronic kidney disease or end stage renal disease; N25.81 Secondary hyperparathyroidism of renal origin; D63.1 Anemia in chronic kidney disease; N39.0 Urinary tract infection, site not specified; Z99.2 Dependence on renal dialysis; Z79.02 Long term (current) use of antithrombotics/antiplatelets; E66.9 Obesity, unspecified; E11.22 Type 2 diabetes mellitus with diabetic chronic kidney disease; F32.A Depression, unspecified; Z20.822 Contact with and (suspected) exposure to COVID-19; E87.6 Hypokalemia; Z68.33 Body mass index [BMI] 33.0-33.9, adult; M81.0 Age-related osteoporosis without current pathological fracture; N40.0 Benign prostatic hyperplasia without lower urinary tract symptoms; G89.29 Other chronic pain; M54.9 Dorsalgia, unspecified; E78.5 Hyperlipidemia, unspecified; K29.70 Gastritis, unspecified, without bleeding; E11.40 Type 2 diabetes mellitus with diabetic neuropathy, unspecified; Z83.3 Family history of diabetes mellitus; Z79.899 Other long term (current) drug therapy; Z79.2 Long term (current) use of antibiotics; Z90.79 Acquired absence of other genital organ(s)
CPT/HCPCS: 36415; 70450; 71045; 80048; 80053; 80061; 80076; 80307; 81001; 82140; 82306; 82570; 82607; 82962; 83540; 83550; 83605; 83690; 83735; 84100; 84156; 84300; 84443; 84484; 85025; 85610; 85730; 87040; 87081; 87086; 87426; 87804; 93005; 93306; 93886; 97163; 99291; G0378; J2405; J2470

== ENCOUNTER 2025-04-01 07:55 | Emergency (ER) | payer OTHER, MEDICAID ==
[~2025-04-01] VITALS: Ht 160 cm; Wt 76.9 kg
[~2025-04-01 07:55] MED LIST changes: -ESZO1TAB15 PO; -FERR325T20 PO; -HYDR-4902 PO; -LEVO500T91 PO; -PREG150C63 PO; -TRAZ150T84 PO
--- NOTE | 2025-04-01 08:17 | ED.PDOC ---
SOB-HPI HPI Comments A 79 YEAR OLD MALE PRESENTS TO THE ED WITH COMPLAINT OF COUGH. PATIENT REPORTS THAT HE HAS BEEN EXPERIENCING A PERSISTENT COUGH WITH ASSOCIATED PHLEGM PRODUCTION, NASAL CONGESTION, AND SORE THROAT FOR THE PAST 4 DAYS. PATIENT DENIES FEVER, CHILLS, SHORTNESS OF BREATH, CHEST PAIN, ABDOMINAL PAIN, NAUSEA, VOMITING, HEADACHE, OR OTHER COMPLAINTS. NO OTHER SYMPTOMS OR MODIFYING FACTORS AT THIS TIME. PATIENT IS ALERT, ORIENTED X 4, AND HAS STEADY GAIT. Chief Complaint: Cough Time Seen by MD: 08:12 Reviewed notes: Nurses Notes, Medications, Allergies Information Source: Patient Mode of Arrival: Ambulatory Severity: Moderate Timing: Days Duration: Since onset Context: At Rest PE Risk Factors: None Prehospital treatment: None Modifying Factors: Nothing Associated Signs and Symptoms: Cough, Nasal Congestion, Sore Throat If cough with SOB: Productive, White Past Medical History PAST MEDICAL HISTORY: Denies Surgical History: Denies all surgeries Family History Family History: Reviewed,noncontributory to illness Social History Smoker: Non-Smoker Alcohol: Denies ETOH Use Drugs: Denies Drug Use Lives In: Home Constitutional: denies: chills, diaphoresis, fatigue, fever, malaise, sweats, weakness, others EENTM: reports: nose congestion, throat pain, throat swelling, voice changes; denies: blurred vision, double vision, ear bleeding, ear discharge, ear drainage, ear pain, ear ringing, eye pain, eye redness, hearing loss, mouth pain, mouth swelling, nasal discharge, nose bleeding, nose pain, photophobia, te aring, others Respiratory: reports: cough; denies: hemoptysis, orthopnea, SOB at rest, shortness of breath, SOB with excertion, stridor, wheezing, others Cardiovascular: denies: chest pain, dizzy spells, diaphoresis, Dyspnea on exertion, edema, irregular heart beat, left arm pain, lightheadedness, palpitations, PND, syncope, others Gastrointestinal: denies: abdomen distended, abdominal pain, blood streaked bowels, constipated, diarrhea, dysphagia, difficulty swallowing, hematemesis, melena, nausea, poor appetite, poor fluid intake, rectal bleeding, rectal pain, vomiting, others Genitourinary: denies: burning, dysuria, flank pain, frequency, hematuria, incontinence, penile discharge, penile sore, pain, testicle pain, testicle swelling, urgency, others Neurological: denies: dizziness, fainting, headache, left sided numbness, left sided weakness, numbness, paresthesia, pre-existing deficit, right sided numbness, right sided weakness, seizure, speech problems, tingling, tremors, weakness, others Musculoskeletal: denies: back pain, gout, joint pain, joint swelling, muscle pain, muscle stiffness, neck pain, others Integumetry: denies: bruises, change in color, change in hair/nails, dryness, laceration, lesions, lumps, rash, wounds, others Allergic/Immunocompromised: denies: Difficulty Healing, Frequent Infections, Hives, Itching, others Hematologic/Lymphatic: denies: anemia, blood clots, easy bleeding, easy bruising, swollen glands, others Endocrine: denies: excessive hunger, excessive sweating, excessive thirst, excessive urination, flushing, intolerance to cold, intolerance to heat, unexplained weight gain, unexplained weight loss, others Psychiatric: denies: anxiety, bipolar disorder, depression, hopeless, panic disorder, schizophrenia, sleepless, suicidal, others All Other Systems: Reviewed and Negative Physical Exam General Appearance: No Apparent Distress, Normal HEENT: PERRL/EOMI, Pharyngeal Erythema (TONSILLAR SWELLING WITH RED SPOTS AND MILD EXUDATES. ), TMs Normal Neck: Full Range of Motion, Non-Tender, Normal, Normal Inspection Respiratory: Chest Non-Tender, Expiration, No Accessory Muscle Use, No Respiratory Distress, Rhonchi Cardiovascular: No Edema, No JVD, No Murmur, No Gallop, Normal Peripheral Pulses, Regular Rate/Rhythm Breast Exam: Deferred Gastrointestinal: No Organomegaly, Non Tender, No Pulsatile Mass, Normal Bowel Sounds, Soft Genitalia: Deferred Pelvic: Deferred Rectal: Deferred Extremities: No calf tenderness, Normal capillary refill, Normal inspection, Normal range of motion, Non-tender, No pedal edema Musculoskeletal : Apperance: Normal Neurologic: Alert, animal geneticist II-XII nml as Tested, No Motor Deficits, Normal Affect, Normal Mood, No Sensory Deficits Cerebellar Function: Normal Reflexes: Normal Skin: Dry, Normal Color, Warm Peripheral Pulses: 2+ carotid (R), 2+ carotid (L) Lymphatic: No Adenopathy Was a procedure done? Was a procedure done?: No Differential Dx Differential Diagnosis: Bronchitis, Pneumonia, Sinusitis, Allergic Rhinitis, Pharyngitis, URI X-Ray, Labs, Meds, VS Vital Signs Date Time Temp Pulse Resp B/P (MAP) Pulse Ox O2 Delivery O2 Flow Rate FiO2 04/01/25 08:46 97.8 102 20 141/73 (95) 97 97.8 04/01/25 08:46 102 20 97 Room Air 04/01/25 07:58 98.2 105 18 139/85 94 98.2 Current Medications Medications (Trade) Dose Ordered Sig/Melanie Route Start Time Stop Time Status Last Admin Ceftriaxone Sodium (Rocephin) 1,000 mg ONCE ONCE IM 04/01/25 08:30 04/01/25 08:31 DC 04/01/25 08:34 Methylprednisolone Sodium Succinate (Solu Medrol) 125 mg ONCE ONCE IM 04/01/25 08:30 04/01/25 08:31 DC 04/01/25 08:34 [place] [id number] Ph: [phone] DIAGNOSTIC IMAGING Diagnostic Imaging Report : [id number] Signed PATIENT: LIYA RASHEED ACCT: [id number] UNIT: [id number] : 1945 LOC: ER ROOM / BED: / AGE / SEX: 79 / M ADM STATUS: REG ER SERVICE 6 ORDERING PHYSICIAN: REBECCA VELARDE PROCEDURE(s): CXR2 - CHEST TWO VIEWS ROUTINE REASON: COUGH ORDER NUMBER(s): [id number], ACCESSION NUMBER(s): [id number] CHEST RADIOGRAPH Indication: COUGH Technique: Frontal and lateral view of the chest was obtained Comparison: None FINDINGS: Lines and Tubes: Tunneled right central venous catheter in satisfactory position. Thoracic stimulator device in-situ. Lungs: Increased interstitial prominence. This may represent pulmonary vascular congestion and/or viral pneumonia. Pleura: No effusion. No pneumothorax. Cardiomediastinal contours: Unremarkable Bones: Unremarkable IMPRESSION: Increased interstitial prominence. This may represent pulmonary vascular congestion and/or viral pneumonia. ATED BY: TOLU DEL RIO MD DICTATED DATE/TIME: 04/01/25834 SIGNED BY: TOLU DEL RIO MD SIGNED DATE/TIME: 04/01/25 0896 CC: X-Ray, Labs, Meds, VS Comment EXTERNAL MEDICAL RECORDS REVIEWED: [NONE] INDEPENDENT HISTORIANS: [NONE] SOCIAL DETERMINANTS OF HEALTH: [NONE] LABS ORDERED: NONE REVIEWED AND INTERPRETED RESULTS: CHEST XR INTERPRETED BY ME. NO ACUTE FINDINGS. NO PNEUMONIA. NO CONSOLIDATIONS. NO INFILTRATES. PENDING RADIOLOGIST REPORT. IMAGING ORDERED: CHEST XR TREATMENTS ORDERED: ROCEPHIN 1G IM, SOLU-MEDROL 125MG IM PROCEDURES PERFORMED: NONE CRITICAL CARE TIME: NONE I HAVE DISCUSSED THE PATIENT WITH THE ATTENDING PHYSICIAN DR. MARINO AND HE AGREES WITH THE PATIENT'S PLAN OF CARE AND DISPOSITION. BASED ON HISTORY OF PRESENT ILLNESS, AND PHYSICAL EXAM, PATIENT WILL BE DISCHARGED HOME. DISCUSSED PLAN FOR DISCHARGE HOME WITH RX [AZITHROMYCIN AND PHENERGAN DM]. MEDICATION WARNINGS GIVEN. SHARED DECISION MAKING: DISCUSSED WITH PATIENT THAT THEIR WORKUP WAS NORMAL. PATIENT INSTRUCTED TO FOLLOW UP WITH PRIMARY CARE PROVIDER IN 1-2 DAYS FOR RE- EVALUATION OF SYMPTOMS. PATIENT VERBALIZES UNDERSTANDING TO RETURN TO ED FOR NEW OR WORSENING SYMPTOMS OR IF FOLLOW UP WITH PCP CANNOT BE OBTAINED. PATIENT FEELS COMFORTABLE GOING HOME AT THIS TIME. ALL QUESTIONS ADDRESSED AT TIME OF DISCHARGE. Images Reviewed?: Images reviewed and evaluated by me Time of 1ST Reevaluation: 09:00 Reevaluation 1ST: Improved Patient Education/Counseling: Diagnosis, Treatment, Need For Follow Up Family Education/Counseling: Diagnosis, Treatment, No Family Present Medical Screening: No EMC Exist At This Time SEPSIS Sepsis Screen Date sepsis recognized/suspect: Apr 01, 2025 Time Sepsis recognized/suspect: 0800 Recent Procedure: No On Antibiotic Therapy: No Respiratory Rate >20: No Heart Rate >90: Yes Temp<36 C (96.8 F) or >38.3 C: No SBP <90 or MAP <65 mmHG: No New Acute Mental Status Change: No Is the patient on CPAP, BIPAP,: No Physician Orders Chest Two Views Routine (04/01/25 08:07) Vital Signs Date Time Temp Pulse Resp B/P (MAP) Pulse Ox O2 Delivery O2 Flow Rate FiO2 04/01/25 08:46 97.8 102 20 141/73 (95) 97 97.8 04/01/25 08:46 102 20 97 Room Air 04/01/25 07:58 98.2 105 18 139/85 94 98.2 Medications Medications Dose Ordered Sig/Melanie Route Start Time Stop Time Status Last Admin Dose Admin Ceftriaxone Sodium 1,000 mg ONCE ONCE IM 04/01/25 08:30 04/01/25 08:31 DC 04/01/25 08:34 Methylprednisolone Sodium Succinate 125 mg ONCE ONCE IM 04/01/25 08:30 04/01/25 08:31 DC 04/01/25 08:34 Departure 1 Departure Time of Disposition: 09:00 Impression: Primary Impression: Acute bronchitis Qualified Codes: J20.9 - Acute bronchitis, unspecified Additional Impression: Acute tonsillitis Qualified Codes: J03.90 - Acute tonsillitis, unspecified Disposition: HOME / SELF CARE / HOMELESS Condition: Stable Additional Instructions: FOLLOW-UP WITH PCP IN 1 TO 2 DAYS. TAKE MEDICATIONS PRESCRIBED. RETURN TO ED FOR ANY NEW OR WORSENING SYMPTOMS. e-Prescriptions Promethazine-Dm (Promethazine Dm 6.25-15 mg/5Ml) 1 Felipa Felipa 7 ML PO TID, #180 ML Prov: REBECCA VELARDE 04/01/25 Azithromycin (Azithromycin) 500 Mg Tab 1 TAB PO DAILY, #5 TAB Prov: REBECCA VELARDE 04/01/25 Discharged With: Self, Relative Critical Care Note Critical Care Time?: No Stability Stability form required: No Heart Score Heart Score: Heart Score Response (Comments) Value History N/A 0 EKG N/A 0 Age N/A 0 Risk Factors N/A 0 Troponin N/A 0 Total 0 I personally scribed for REBECCA VELARDE ([email or web address]) on 04/01/25 at 08:17. Electronically submitted by Sung Napier ([email or web address]). I personally scribed for REBECCA VELARDE ([email or web address]) on 04/01/25 at 08:18. Electronically submitted by Sung Napier ([email or web address]). I personally scribed for REBECCA VELARDE ([email or web address]) on 04/01/25 at 08:18. Electronically submitted by Sung Napier ([email or web address]). I personally scribed for REBECCA VELARDE ([email or web address]) on 04/01/25 at 08:45. Electronically submitted by Sung Napier ([email or web address]). REBECCA VELARDE Apr 01, 2025 08:17
[2025-04-01] MEDS: cefTRIAXone SOD 1,000 MG VL IM ONE (08:34)
[2025-04-01] MEDS: methylPREDNISolone SOD SUCC 125 MG/2 ML VL IM ONE (08:34)
--- NOTE | 2025-04-01 08:37 | DVH ---
CHEST RADIOGRAPH Indication: COUGH Technique: Frontal and lateral view of the chest was obtained Comparison: None FINDINGS: Lines and Tubes: Tunneled right central venous catheter in satisfactory position. Thoracic stimulator device in-situ. Lungs: Increased interstitial prominence. This may represent pulmonary vascular congestion and/or viral pneumonia. Pleura: No effusion. No pneumothorax. Cardiomediastinal contours: Unremarkable Bones: Unremarkable IMPRESSION: Increased interstitial prominence. This may represent pulmonary vascular congestion and/or viral pneumonia.
[2025-04-01 08:46] VITALS: BP 141/73; PULSE 102; RESP 20; TEMP 97.8; O2SAT 97
[2025-04-01] MEDS: LIDOCAINE 1% HCL (LOCAL ANESTH.) INJ 20ML MDV IJ ONE (08:46)
[2025-04-01] MEDS ORDERED: AZIT500T66 PO (08:51)
[2025-04-01] MEDS ORDERED: PROM1SOL4 PO (08:51)
== END 2025-04-01 08:57 | disposition home or self-care (01) ==
LOC: EDUNIT# 07:55 → ER 07:55
DX: J20.9 Acute bronchitis, unspecified (principal); J03.90 Acute tonsillitis, unspecified; Z79.899 Other long term (current) drug therapy
CPT/HCPCS: 71046; 96372; 99284; J0696; J2003; J2919

== ENCOUNTER 2025-04-03 09:14 | Inpatient (IN) | payer OTHER, MEDICAID ==
[~2025-04-03] VITALS: Ht 160 cm; Wt 74.4 kg
[~2025-04-03 09:14] MED LIST changes: +AZIT500T66 PO; +PROM1SOL4 PO
--- NOTE | 2025-04-03 09:55 | ED.PDOC ---
History of Present Illness HPI Comments 79 y.o male with PMHx of CKF and anemia, presents to the ED for an evaluation of a catheter dislodgement. Patient reports his dialysis catheter which is localized to his right upper chest popped out while walking around his house. No bleeding at the site noted. Patient states he had dialysis for 2 months on Mo , Sunday and Fridays' states his last tx was 3 weeks ago and was told he no longer needed to return and that staffing would call to see if he needed another tx. He denies any SOB or chest pain. Chief Complaint: Tube Replacement Time Seen by MD: 09:44 Reviewed Notes: Nurses Notes, Medications, Allergies Allergies: Coded Allergies: NO KNOWN ALLERGIES (Unverified , 01/11/23) Home Meds Active Scripts Tamsulosin Hcl (Tamsulosin Hcl) 0.4 Mg Cap, 1 CAP PO HS, #30 CAP Prov:ROMULO AVILES MD 03/01/25 Reported Medications Docusate Sodium (Docusate Sodium) 100 Mg Cap, 1 CAP PO TID PRN for constipation 01/12/23 Duloxetine HCl (Duloxetine HCl) 30 Mg Cap, 3 CAP PO DAILY 01/12/23 Omeprazole (Omeprazole Dr) 40 Mg Cap, 1 CAP PO DAILY 01/12/23 Alendronate Sodium (Alendronate Sodium) 70 Mg Tab, 1 TAB PO QWEEKLY 01/12/23 Atorvastatin Calcium (ATORVASTATIN CALCIUM) 40 Mg Tab, 1 TAB PO 01/12/23 Information Source: Patient Mode of Arrival: Ambulatory Severity: Moderate Timing: Hours Duration: Since onset Past Medical History PAST MEDICAL HISTORY: Anemia, CKF Surgical History: Denies all surgeries Family History Family History: Reviewed,noncontributory to illness Social History Smoker: Non-Smoker Alcohol: Denies ETOH Use Drugs: Denies Drug Use Constitutional: denies: chills, diaphoresis, fatigue, fever, malaise, sweats, weakness, others EENTM: denies: blurred vision, double vision, ear bleeding, ear discharge, ear drainage, ear pain, ear ringing, eye pain, eye redness, hearing loss, mouth pain, mouth swelling, nasal discharge, nose bleeding, nose congestion, nose pain, photophobia, tearing, throat pain, throat swelling, voice changes, others Respiratory: denies: cough, hemoptysis, orthopnea, SOB at rest, shortness of breath, SOB with excertion, stridor, wheezing, others Cardiovascular: denies: chest pain, dizzy spells, diaphoresis, Dyspnea on exertion, edema, irregular heart beat, left arm pain, lightheadedness, palpitations, PND, syncope, others Gastrointestinal: denies: abdomen distended, abdominal pain, blood streaked bowels, constipated, diarrhea, dysphagia, difficulty swallowing, hematemesis, melena, nausea, poor appetite, poor fluid intake, rectal bleeding, rectal pain, vomiting, others Genitourinary: denies: burning, dysuria, flank pain, frequency, hematuria, incontinence, penile discharge, penile sore, pain, testicle pain, testicle swelling, urgency, others Neurological: denies: dizziness, fainting, headache, left sided numbness, left sided weakness, numbness, paresthesia, pre-existing deficit, right sided numbness, right sided weakness, seizure, speech problems, tingling, tremors, weakness, others Musculoskeletal: denies: back pain, gout, joint pain, joint swelling, muscle pain, muscle stiffness, neck pain, others Integumetry: reports: wounds; denies: bruises, change in color, change in hair/nails, dryness, laceration, lesions, lumps, rash, others Allergic/Immunocompromised: denies: Difficulty Healing, Frequent Infections, Hives, Itching, others Hematologic/Lymphatic: denies: anemia, blood clots, easy bleeding, easy brui sing, swollen glands, others Endocrine: denies: excessive hunger, excessive sweating, excessive thirst, ex cessive urination, flushing, intolerance to cold, intolerance to heat, unexplained weight gain, unexplained weight loss, others Psychiatric: denies: anxiety, bipolar disorder, depression, hopeless, panic disorder, schizophrenia, sleepless, suicidal, others All Other Systems: Reviewed and Negative Physical Exam General Appearance: Moderate Distress HEENT: Normal ENT Inspection, Pharynx Normal, TMs Normal Neck: Full Range of Motion, Non-Tender, Normal, Normal Inspection Respiratory: Chest Non-Tender, Lungs Clear, No Accessory Muscle Use, No Respiratory Distress, Normal Breath Sounds Cardiovascular: No Edema, No JVD, No Murmur, No Gallop, Normal Peripheral Pulses, Regular Rate/Rhythm Breast Exam: Deferred Gastrointestinal: No Organomegaly, Non Tender, No Pulsatile Mass, Normal Bowel Sounds, Soft Genitalia: Deferred Pelvic: Deferred Rectal: Deferred Extremities: No calf tenderness, Normal capillary refill, Normal inspection, Normal range of motion, Non-tender, No pedal edema Musculoskeletal : Apperance: Normal Neurologic: Alert, finance broker II-XII nml as Tested, No Motor Deficits, Normal Affect, Normal Mood, No Sensory Deficits Cerebellar Function: NOT DONE Reflexes: NOT DONE Skin: Dry, Normal Color, Warm Peripheral Pulses: 3+ Radial (R), 3+ Radial (L) Lymphatic: No Adenopathy Was a procedure done? Was a procedure done?: No Differential Dx Considerations may include: catheter malfunction, Catheter dislodgment X-Ray, Labs, Meds, VS Vital Signs Date Time Temp Pulse Resp B/P (MAP) Pulse Ox O2 Delivery O2 Flow Rate FiO2 04/03/25 10:00 97.9 74 18 148/80 (102) 96 97.9 04/03/25 10:00 74 18 98 Room Air* 0 21 04/03/25 09:16 98.7 109 14 124/101 95 98.7 Patient alert. Vitals stable. Came in because of displacement of tunneled catheter for his dialysis. Answering all questions. Ambulating. Moving all extremities. Nephrology consultation. Continue monitoring. Time of 1ST Reevaluation: 09:51 Reevaluation 1ST: Unchanged Patient Education/Counseling: Diagnosis, Treatment, Prognosis Family Education/Counseling: No Family Present SEPSIS Sepsis Screen Date sepsis recognized/suspect: Apr 03, 2025 Time Sepsis recognized/suspect: 920 Recent Procedure: No On Antibiotic Therapy: No Respiratory Rate >20: No Heart Rate >90: Yes Temp<36 C (96.8 F) or >38.3 C: No SBP <90 or MAP <65 mmHG: No New Acute Mental Status Change: No Is the patient on CPAP, BIPAP,: No Physician Orders Troponin-I Hs (04/03/25 10:44) Complete Blood Count (04/03/25 10:44) Chest Portable (04/03/25 10:44) Basic Metabolic Panel (04/03/25 10:44) Vital Signs Date Time Temp Pulse Resp B/P (MAP) Pulse Ox O2 Delivery O2 Flow Rate FiO2 04/03/25 10:00 97.9 74 18 148/80 (102) 96 97.9 04/03/25 10:00 74 18 98 Room Air* 0 21 04/03/25 09:16 98.7 109 14 124/101 95 98.7 Departure 1 Departure Time of Disposition: 11:11 Impression: Primary Impression: ESRD (end stage renal disease) Additional Impression: HTN (hypertension) Qualified Codes: I10 - Essential (primary) hypertension Disposition: ADMITTED INPATIENT Admit to: Med Surg Condition: Guarded Critical Care Note Critical Care Time?: No Stability Stability form required: No Heart Score Heart Score: Heart Score Response (Comments) Value History N/A 0 EKG N/A 0 Age N/A 0 Risk Factors N/A 0 Troponin N/A 0 Total 0 I personally scribed for LOVE MARINO MD ([email or web address]) on 04/03/25 at 09:55. Electronically submitted by Janelle Rosenberg ([facility]). LOVE MARINO MD Apr 03, 2025 09:55
[2025-04-03 10:00] VITALS: PULSE 74; RESP 18; O2SAT 98
--- NOTE | 2025-04-03 11:22 | DVH ---
CHEST RADIOGRAPH INDICATION: sob TECHNIQUE: Single frontal view of the chest was obtained COMPARISON: XY CHEST PORTABLE on DOS: 02/27/25, XY CHEST XRAY 1 VIEW on DOS: 02/13/25, XY CHEST XRAY 1 VIEW on DOS: 02/12/25, XY CHEST XRAY 1 VIEW on DOS: 02/10/25 FINDINGS: Lines and Tubes: Thoracic stimulator device in-situ. Lungs: Congestion Pleura: No effusion. No pneumothorax. Cardiomediastinal contours: Unremarkable Bones: Age indeterminate likely chronic minimally displaced fractures of the left 5th, 6th and 7th ribs. IMPRESSION: Age indeterminate likely chronic minimally displaced fractures of the left 5th, 6th and 7th ribs. Increased interstital prominence. This may represent pulmonary vascular congestion and/or viral pneumonia. Clinical correlation advised.
[2025-04-03 12:02] LABS: Hemoglobin 11.3 g/dL (13.5-17.5); Mean Corpuscular Volume 84.0 fL (80.0-100.0)
[2025-04-03 12:04] LABS: Hematocrit 35.6 % (41.0-53.0); Mean Corpuscular Hemoglobin 26.6 pg (28.0-32.0); Nucleated Red Blood Cells % 0.1 %
[2025-04-03 12:08] LABS: Chloride 105 mmol/L (98-107); Potassium 4.9 mmol/L (3.5-5.1); Sodium 140 mmol/L (136-145)
[2025-04-03 12:09] LABS: Anion Gap 11 (5-15); Calcium 9.5 mg/dL (8.7-10.4); Carbon Dioxide 24 mmol/L (20-31)
[2025-04-03 12:14] LABS: BUN/Creatinine Ratio 12.6 (10.0-20.0); Glucose 86 mg/dL (74-106)
[2025-04-03 12:16] LABS: Blood Urea Nitrogen 28 mg/dL (9-23)
[2025-04-03] MEDS ORDERED: NITROGLYCERIN 0.4 MG SL TAB SL PRN (17:15)
[2025-04-03] MEDS ORDERED: ACETAMINOPHEN 325 MG TAB PO PRN (17:15)
[2025-04-03] MEDS ORDERED: MORPHINE SULFATE 4 MG/ML SYR/VIAL IV PRN (17:45)
--- NOTE | 2025-04-03 17:45 | DVHHPRES ---
History of Present Illness Resident Creating Document: ROSALINA PUENTES RESIDENT History of Present Illness Mr. Nixon is a presents with accidental dislodgment of her dialysis catheter that had been in place for approximately 2 months. The patient reports that the catheter came out accidentally when he was getting up and moving around. He has been receiving dialysis every 3 days until recently when the dialysis center told her not to come anymore and that they would call her if he needed more frequent dialysis. As a result, she has not received dialysis for the past 2 weeks. The patient denies chest pain, difficulty breathing, leg swelling, or abdominal pain. 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 Family history: Non contributory Social history: Lives in [place] with . Denies current tobacco, alcohol and other drug abuse Allergies: Denies Home medication: Naproxen, Lunesta, Lisinopril, Alendronate, Omeprazoles, Duoloxetine, gabapentin, docusate, atorvastatin, tamsulosin. Review of Systems Cardiovascular: Negative for chest pain, difficulty breathing, leg swelling. Gastrointestinal: Negative for abdominal pain. Review of Systems Allergies: Coded Allergies: NO KNOWN ALLERGIES (Unverified , 01/11/23) Medications Current Medications Medications Dose Ordered Sig/Melanie Route Start Time Stop Time Status Last Admin Dose Admin Sodium Chloride 10 ml Q8HR IV 04/03/25 22:00 Ondansetron HCl 4 mg Q4HP PRN IV 04/03/25 17:15 Enoxaparin Sodium 30 mg DAILY SC 04/04/25 10:00 Acetaminophen 650 mg Q6HP PRN PO 04/03/25 17:15 Nitroglycerin 0.4 mg Q5MINP PRN SL 04/03/25 17:15 Morphine Sulfate 2 mg Q30M PRN IV 04/03/25 17:45 Exam Vital Signs Vital Signs Date Time Temp Pulse Resp B/P (MAP) Pulse Ox O2 Delivery O2 Flow Rate FiO2 04/03/25 15:18 97.8 77 16 143/85 (104) 95 97.8 04/03/25 10:00 Room Air* 0 21 Exam Pt is lying on bed General Appearance: Alert, Oriented X3, Cooperative, Not in acute distress HEENT: Atraumatic, Mucous membranes moist/pink Respiratory: Clear to auscultation, Normal air movement, No added sounds Cardiovascular: Regular rate, Normal S1, Normal S2, No murmurs Abdominal: Active bowel sounds, Soft, no distention, no tenderness Extremities: No edema, Normal pulses, No tenderness/swelling Skin: No Significant rash, except past surgical scars Neuro: Normal speech, sensorimotor deficits none Psych/Mental Status: Mental status NL, Mood NL Nurse was there as behavioral therapy coordinator during examination Labs/Xrays Labs Test 04/03/25 11:18 Range/Units White Blood Count 9.1 4.4-10.8 10^3/uL Red Blood Count 4.24 L 4.5-5.90 10^6/uL Hemoglobin 11.3 L 13.5-17.5 g/dL Hematocrit 35.6 L 41.0-53.0 % Mean Corpuscular Volume 84.0 80.0-100.0 fL Mean Corpuscular Hemoglobin 26.6 L 28.0-32.0 pg Mean Corpuscular Hemoglobin Concent 31.7 L 32.0-36.0 g/dL Red Cell Distribution Width 16.7 H 11.8-14.3 % Platelet Count 158 140-450 10^3/uL Mean Platelet Volume 8.4 6.9-10.8 fL Neutrophils (%) (Auto) 70.8 37.0-80.0 % Lymphocytes (%) (Auto) 20.5 10.0-50.0 % Monocytes (%) (Auto) 7.1 0.0-12.0 % Eosinophils (%) (Auto) 1.2 0.0-7.0 % Basophils (%) (Auto) 0.4 0.0-2.0 % Neutrophils # (Auto) 6.4 1.6-8.6 10 ^3/uL Lymphocytes # (Auto) 1.9 0.4-5.4 10 ^3/uL Monocytes # (Auto) 0.6 0-1.3 10 ^3/uL Eosinophils # (Auto) 0.1 0-0.8 10 ^3/uL Basophils # (Auto) 0 0-0.2 10 ^3/uL Nucleated Red Blood Cells 0.1 % Sodium Level 140 136-145 mmol/L Potassium Level 4.9 3.5-5.1 mmol/L Chloride Level 105 98-107 mmol/L Carbon Dioxide Level 24 20-31 mmol/L Anion Gap 11 5-15 Blood Urea Nitrogen 28 H 9-23 mg/dL Creatinine 2.23 H 0.700-1.30 mg/dL Glomerular Filtration Rate Calc 29 >90 mL/min BUN/Creatinine Ratio 12.6 10.0-20.0 Serum Glucose 86 74-106 mg/dL Calcium Level 9.5 8.7-10.4 mg/dL Troponin I High Sensitivity 7 </=54 ng/L SEPSIS Sepsis Screen Date sepsis recognized/suspect: Apr 03, 2025 Time Sepsis recognized/suspect: 1000 Recent Procedure: No On Antibiotic Therapy: No Respiratory Rate >20: No Heart Rate >90: No Temp<36 C (96.8 F) or >38.3 C: No SBP <90 or MAP <65 mmHG: No New Acute Mental Status Change: No Is the patient on CPAP, BIPAP,: No Physician Orders Chest Portable (04/03/25 10:44) *[facility] (04/03/25 11:12) Admit (04/03/25 17:10) Allergies (04/03/25 17:10) Code Status (04/03/25 17:10) Renal Standard(2gna,3gk,Lopho) (04/03/25 Dinner) Sodium Chloride Lock (Saline Lock Ns) (04/03/25 22:00) Oxygen Per Hour (04/03/25 17:10) Ondansetron Hcl (Zofran) (04/03/25 17:15) Complete Blood Count (04/04/25 04:00) Comprehensive Metabolic Panel (04/04/25 04:00) Condition: Fair (04/03/25 17:10) Acetaminophen Tablet (Tylenol Tablet) (04/03/25 17:15) Nitroglycerin Sublingual (Ntrostat Subli (04/03/25 17:15) Oxygen By Nasal Cannula (04/03/25 17:10) Stat Ekg For Chest Pain (04/03/25 17:10) Notify Md Of Changes From Base (04/03/25 17:10) Debridging Machine Operator For 24 Hours (04/03/25 17:10) Emergency Dysrhythmia Protocol (04/03/25 17:10) Rhythm Strips Once Every Shift (04/03/25 17:10) B-Type Natriuretic Peptide (04/03/25 17:10) Hepatic Panel (04/03/25 17:10) PTPTT (04/03/25 17:10) Thyroid Stimulating Hormone (04/03/25 17:10) Urinalysis (04/03/25 17:10) Enoxaparin Sodium (Lovenox) (04/04/25 10:00) Morphine Sulfate Injection (04/03/25 17:45) Pantoprazole (Protonix) (04/04/25 10:00) Vital Signs Date Time Temp Pulse Resp B/P (MAP) Pulse Ox O2 Delivery O2 Flow Rate FiO2 04/03/25 15:18 97.8 77 16 143/85 (104) 95 97.8 04/03/25 10:00 97.9 74 18 148/80 (102) 96 97.9 04/03/25 10:00 74 18 98 Room Air* 0 21 Laboratory Tests Test 04/03/25 11:18 White Blood Count 9.1 10^3/uL (4.4-10.8) Assessment/Plan Assessment/Plan Mr Nixon presents with accidental removal of dialysis catheter that was placed approximately 2 months ago, with recent cessation of dialysis treatments over the past 2 weeks. ESRD on HD with Dialysis catheter displacement Plan: - Admit patient for evaluation and management - Consult nephrology (Dr. Aguilera) - monitor lab - patient is currently not receiving dialysis for 2 weeks per Nephrology team - HD catheter placement decision will be per Nephrology - monitor electrolytes GI PPX: Protonix VTE ppx: Lovenox Diet: Renal Goals of care addressed with the patient for more than 27 minutes: Full code status Case discussed with Dr. Hannon, patient and nurse Plan discussed with: Patient, Other (rn) My Orders Orders - ROSALINA PUENTES RESIDENT Procedure Category Date Status Time Admit ADMIT 04/03/25 Transmitted 17:10 Allergies THANH 04/03/25 In Process 17:10 Code Status CODE 04/03/25 Transmitted 17:10 Renal DIET 04/03/25 Transmitted Standard(2gna,3gk,Lopho) Dinner Sodium Chloride Lock PHA 04/03/25 In Process (Saline Lock Ns) 22:00 Oxygen Per Hour RT 04/03/25 Transmitted 17:10 Ondansetron Hcl PHA 04/03/25 In Process (Zofran) 17:15 Complete Blood Count LAB 04/04/25 Verified 04:00 Comprehensive LAB 04/04/25 Verified Metabolic Panel 04:00 Condition: Fair THANH 04/03/25 In Process 17:10 Acetaminophen Tablet PHA 04/03/25 In Process (Tylenol Tablet) 17:15 Nitroglycerin PHA 04/03/25 In Process Sublingual (Ntrostat 17:15 Oxygen By Nasal RT 04/03/25 Transmitted Cannula 17:10 Stat Ekg For Chest THANH 04/03/25 In Process Pain 17:10 Notify Md Of Changes THANH 04/03/25 In Process From Base 17:10 Debridging Machine Operator For THANH 04/03/25 In Process 24 Hours 17:10 Emergency Dysrhythmia [facility] [place] 04/03/25 In Process Protocol 17:10 Rhythm Strips Once [facility] [place] 04/03/25 In Process Every Shift 17:10 B-Type Natriuretic LAB 04/03/25 In Process Peptide 17:10 Hepatic Panel LAB 04/03/25 In Process 17:10 PTPTT LAB 04/03/25 Logged 17:10 Thyroid Stimulating LAB 04/03/25 In Process Hormone 17:10 Urinalysis LAB 04/03/25 Logged 17:10 Enoxaparin Sodium PHA 04/04/25 In Process (Lovenox) 10:00 Morphine Sulfate PHA 04/03/25 In Process Injection 17:45 Pantoprazole PHA 04/04/25 Transmitted (Protonix) 10:00 Visit Coding STANDARD RES Billing Provider: ELIZABETH HANNON MD Date of Service if different f: Apr 03, 2025 Common Visit Codes: [id number] INP/OBS CARE (HIGH) Secondary Visit Codes: 58038-[id number] CARE PLAN 30 MINUTES ROSALINA PUENTES RESIDENT Apr 03, 2025 17:45 ELIZABETH HANNON MD Apr 06, 2025 21:21
[2025-04-03 18:04] LABS: Alanine Aminotransferase 25 U/L (7-40); Albumin 3.5 g/dL (3.2-4.8); Alkaline Phosphatase 100 U/L (46-116); Total Protein 6.7 g/dL (5.7-8.2)
[2025-04-03 18:07] LABS: Bilirubin, Direct < 0.1 mg/dL (<0.3); Bilirubin, Total 0.2 mg/dL (0.2-1.0)
[2025-04-03 19:05] LABS: INR 1.06 (0.9-1.15); Partial Thromboplastin Time 25.5 SEC (24.5-34.5); Prothrombin Time 11.2 sec (9.3-11.8)
--- NOTE | 2025-04-03 19:38 | DVHINCON2 ---
Date of service: Apr 03, [address] Enamorado Reason for Consultation Dislodgement of tunneled IJ hemodialysis catheter History of Present Illness Patient is a 79-year-old male with past medical history significant for Dyslipidemia, RAMILA superimposed on CKD requiring IHD which, with partial recovery of renal function prompted discontinuation of HD obstructive uropathy, multiple UTI, BPH s/p TURP, chronic back pain, osteoporosis, depression, and gastritis who is admitted for dislodgment of tunneled HD catheter Past Medical History RAMILA superimposed on CKD requiring IHD which, with partial recovery of renal function prompted discontinuation of HD obstructive uropathy, multiple UTI, BPH s/p TURP, chronic back pain, dyslipidemia, osteoporosis, depression, and gastr itis Past Surgical History Cervical spine surgery, spinal stimulator placement, tunnelled catheter in right IJ Allergies: Coded Allergies: NO KNOWN ALLERGIES (Unverified , 01/11/23) Home Meds Active Scripts Promethazine-Dm (Promethazine Dm 6.25-15 mg/5Ml) 1 Felipa Felipa, 7 ML PO TID, #180 ML Prov:REBECCA VELARDE 04/01/25 Azithromycin (Azithromycin) 500 Mg Tab, 1 TAB PO DAILY, #5 TAB Prov:REBECCA VELARDE 04/01/25 Tamsulosin Hcl (Tamsulosin Hcl) 0.4 Mg Cap, 1 CAP PO HS, #30 CAP Prov:ROMULO AVILES MD 03/01/25 Reported Medications Lisinopril (Lisinopril) 20 Mg Tab, 10 MG PO DAILY for 30 Days, MG 04/04/25 Eszopiclone (Lunesta) 2 Mg Tab, 3 MG PO DAILY, TAB 04/03/25 Losartan Potassium & Hydrochlo (Losartan Potassium/Hydroc) 1 Tab Tab, 1 TAB PO DAILY, #30 TAB 5 Refills 04/03/25 Baclofen (Baclofen) 10 Mg Tab, 1 TAB PO TID 04/03/25 Naproxen (NAPROSYN TABLET) 500 Mg Tb, 1 TAB PO 04/03/25 Fluticasone Furoate-Vilanterol (BREO ELLIPTA) 1 Inh Inh, 1 PUFF PO DAILY 04/03/25 Albuterol Sulfate (Albuterol Sulfate Hfa) 108 Mcg/Act Aer, INH 04/03/25 Ferrous Sulfate (Ferosul) 325 Mg Tab, 1 TAB PO BID 04/03/25 Oxybutynin Chloride (Oxybutynin Chloride) 5 Mg Tab, 1 TAB PO BID 04/03/25 Pregabalin (Pregabalin) 75 Mg Cap, PO 04/03/25 Docusate Sodium (Docusate Sodium) 100 Mg Cap, 1 CAP PO TID PRN for constipation 01/12/23 Duloxetine HCl (Duloxetine HCl) 30 Mg Cap, 3 CAP PO DAILY 01/12/23 Omeprazole (Omeprazole Dr) 40 Mg Cap, 1 CAP PO DAILY 01/12/23 Alendronate Sodium (Alendronate Sodium) 70 Mg Tab, 1 TAB PO QWEEKLY 01/12/23 Atorvastatin Calcium (ATORVASTATIN CALCIUM) 40 Mg Tab, 1 TAB PO 01/12/23 Discontinued Reported Medications Lisinopril (Lisinopril) 20 Mg Tab, 1 TAB PO DAILY 04/03/25 Current Medications Current Medications Medications (Trade) Dose Ordered Sig/Melanie Route PRN Reason Start Time Stop Time Status Last Admin Sodium Chloride (Saline Lock Ns) 10 ml Q8HR IV 04/03/25 22:00 04/03/25 21:03 Ondansetron HCl (Zofran) 4 mg Q4HP PRN IV NAUSEA / VOMITING 04/03/25 17:15 04/04/25 09:46 Enoxaparin Sodium (Lovenox) 30 mg DAILY SC 04/04/25 10:00 Acetaminophen (Tylenol Tablet) 650 mg Q6HP PRN PO PAIN SCALE 1-3 OR TEMP>100.4 04/03/25 17:15 Nitroglycerin (Ntrostat Sublingual) 0.4 mg Q5MINP PRN SL FOR CHEST PAIN 04/03/25 17:15 04/03/25 23:11 DC Morphine Sulfate 2 mg Q30M PRN IV FOR CHEST PAIN 04/03/25 17:45 04/03/25 23:11 DC Pantoprazole Sodium (Protonix) 40 mg DAILY IV 04/04/25 10:00 04/04/25 09:43 Family History: Diabetes mellitus G8 MOTHER Review of Systems All 12 item review of systems reviewed with the patient nonsignificant except what is mentioned in the history of present illness H&P Exam Vital Signs/I&O Vital Sign Date Time Temp Pulse Resp B/P (MAP) Pulse Ox O2 Delivery O2 Flow Rate FiO2 04/04/25 08:43 97.8 75 17 161/98 (119) 96 97.8 04/04/25 08:00 Room Air* 0 21 Intake and Output 04/03/25 04/04/25 19:00 07:00 Intake Total 300 ml Balance 300 ml Intake Oral 300 ml # Voids 3 Physical Exam Patient is awake alert Lungs clear to auscultation bilaterally Cardiac exam regular rate and rhythm GI soft nontender was normal Extremities no clubbing cyanosis or edema Neuro nonfocal Labs/Diagnostic Data Labs/Diagnostic Data Laboratory Tests Test 04/04/25 05:21 04/04/25 04:00 04/03/25 19:42 04/03/25 18:22 Range/Units White Blood Count 8.9 4.4-10.8 10^3/uL Red Blood Count 4.32 L 4.5-5.90 10^6/uL Hemoglobin 11.5 L 13.5-17.5 g/dL Hematocrit 36.1 L 41.0-53.0 % Mean Corpuscular Volume 83.4 80.0-100.0 fL Mean Corpuscular Hemoglobin 26.7 L 28.0-32.0 pg Mean Corpuscular Hemoglobin Concent 32.0 32.0-36.0 g/dL Red Cell Distribution Width 16.7 H 11.8-14.3 % Platelet Count 221 140-450 10^3/uL Mean Platelet Volume 9.2 6.9-10.8 fL Neutrophils (%) (Auto) 60.5 37.0-80.0 % Lymphocytes (%) (Auto) 31.1 10.0-50.0 % Monocytes (%) (Auto) 6.3 0.0-12.0 % Eosinophils (%) (Auto) 1.6 0.0-7.0 % Basophils (%) (Auto) 0.5 0.0-2.0 % Neutrophils # (Auto) 5.4 1.6-8.6 10 ^3/uL Lymphocytes # (Auto) 2.8 0.4-5.4 10 ^3/uL Monocytes # (Auto) 0.6 0-1.3 10 ^3/uL Eosinophils # (Auto) 0.1 0-0.8 10 ^3/uL Basophils # (Auto) 0 0-0.2 10 ^3/uL Nucleated Red Blood Cells 0.0 % Sodium Level 140 136-145 mmol/L Potassium Level 4.6 3.5-5.1 mmol/L Chloride Level 104 98-107 mmol/L Carbon Dioxide Level 25 20-31 mmol/L Anion Gap 11 5-15 Blood Urea Nitrogen 34 H 9-23 mg/dL Creatinine 2.21 H 0.700-1.30 mg/dL Glomerular Filtration Rate Calc 29 >90 mL/min BUN/Creatinine Ratio 15.4 10.0-20.0 Serum Glucose 100 74-106 mg/dL Calcium Level 9.2 8.7-10.4 mg/dL Total Bilirubin 0.3 0.2-1.0 mg/dL Aspartate Amino Transferase (AST) 29 13-40 U/L Alanine Aminotransferase (ALT) 25 7-40 U/L Alkaline Phosphatase 95 46-116 U/L Total Protein 7.1 5.7-8.2 g/dL Albumin 3.5 3.2-4.8 g/dL Urine Color Light-yellow Yellow Urine Clarity Clear Clear Urine pH 5.5 5.0-9.0 Urine Specific [place] 1.014 1.001-1.035 Urine Protein Negative Negative Urine Ketones Negative Negative Urine Blood Negative Negative /uL Urine Nitrite Negative Negative Urine Bilirubin Negative Negative Urine Urobilinogen Normal Negative mg/dL Urine Leukocyte Esterase Negative Negative /uL Urine RBC 2 0 - 3 /hpf Urine Microscopic WBC 4 H 0-3 /HPF Urine Squamous Epithelial Cells None seen <5 /hpf Urine Bacteria None seen None Seen /hpf Urine Creatinine 68.27 30.0-125.0 mg/dL Urine Protein/Creatinine Ratio 0.40 Urine Sodium 140 40-220 mmol/L Urine Glucose Normal Normal mg/dL Urine Total Protein 27.2 H 1-14 mg/dL Vitamin D 25-Hydroxy 77.7 30.0-100 ng/mL Parathyroid Hormone (Intact) 28.5 18.4-80.1 pg/mL Test 04/03/25 18:01 04/03/25 11:18 Range/Units Prothrombin Time 11.2 9.3-11.8 sec Prothrombin Time INR 1.06 0.9-1.15 Activated Partial Thromboplast Time 25.5 24.5-34.5 SEC White Blood Count 9.1 4.4-10.8 10^3/uL Red Blood Count 4.24 L 4.5-5.90 10^6/uL Hemoglobin 11.3 L 13.5-17.5 g/dL Hematocrit 35.6 L 41.0-53.0 % Mean Corpuscular Volume 84.0 80.0-100.0 fL Mean Corpuscular Hemoglobin 26.6 L 28.0-32.0 pg Mean Corpuscular Hemoglobin Concent 31.7 L 32.0-36.0 g/dL Red Cell Distribution Width 16.7 H 11.8-14.3 % Platelet Count 158 140-450 10^3/uL Mean Platelet Volume 8.4 6.9-10.8 fL Neutrophils (%) (Auto) 70.8 37.0-80.0 % Lymphocytes (%) (Auto) 20.5 10.0-50.0 % Monocytes (%) (Auto) 7.1 0.0-12.0 % Eosinophils (%) (Auto) 1.2 0.0-7.0 % Basophils (%) (Auto) 0.4 0.0-2.0 % Neutrophils # (Auto) 6.4 1.6-8.6 10 ^3/uL Lymphocytes # (Auto) 1.9 0.4-5.4 10 ^3/uL Monocytes # (Auto) 0.6 0-1.3 10 ^3/uL Eosinophils # (Auto) 0.1 0-0.8 10 ^3/uL Basophils # (Auto) 0 0-0.2 10 ^3/uL Nucleated Red Blood Cells 0.1 % Sodium Level 140 136-145 mmol/L Potassium Level 4.9 3.5-5.1 mmol/L Chloride Level 105 98-107 mmol/L Carbon Dioxide Level 24 20-31 mmol/L Anion Gap 11 5-15 Blood Urea Nitrogen 28 H 9-23 mg/dL Creatinine 2.23 H 0.700-1.30 mg/dL Glomerular Filtration Rate Calc 29 >90 mL/min BUN/Creatinine Ratio 12.6 10.0-20.0 Serum Glucose 86 74-106 mg/dL Calcium Level 9.5 8.7-10.4 mg/dL Phosphorus Level 3.5 2.4-5.1 mg/dL Magnesium Level 2.0 1.6-2.6 mg/dL Total Bilirubin 0.2 0.2-1.0 mg/dL Direct Bilirubin < 0.1 <0.3 mg/dL Aspartate Amino Transferase (AST) 31 13-40 U/L Alanine Aminotransferase (ALT) 25 7-40 U/L Alkaline Phosphatase 100 46-116 U/L Troponin I High Sensitivity 7 </=54 ng/L B-Type Natriuretic Peptide 80.89 0-100 pg/mL Total Protein 6.7 5.7-8.2 g/dL Albumin 3.5 3.2-4.8 g/dL Thyroid Stimulating Hormone (TSH) 1.48 0.55-4.78 uIU/mL Assessment Acute kidney injury superimposed Chronic Kidney Disease stage IV/IIIb, off hemodialysis for six weeks Dislodged right IJ tunneled hemodialysis catheter Patient was supposed to schedule tunneled IJ catheter removal as an outpatient History of obstructive uropathy Urinary tract infection Hypertension Anemia of chronic kidney disease Recommendations Closely monitor fluid And electrolytes Avoid nephrotoxic medications Strict I&O's Renal diet Check urinalysis, lytes and protein Kidney US BP control Will continue to follow with you Patient seen and examined by myself. I discussed my plan of care with the patient and primary nurse at the bedside I would like to thank Dr. Enamorado for the consult, will follow up Plan discussed with: Patient HAFSA DOMINGUEZ MD Apr 03, 2025 19:38
[2025-04-03 20:32] LABS: Magnesium 2.0 mg/dL (1.6-2.6)
--- NOTE | 2025-04-03 20:50 | DVH ---
INDICATION: Acute kidney injury TECHNIQUE: Multiple real-time sonographic images of the kidneys and bladder were obtained. COMPARISON: US KIDNEY on DOS: 02/11/25, US KIDNEY on DOS: 01/11/23 FINDINGS: The right kidney measures 10.8 cm in length, which is normal in size. There is increased echogenicity of the right kidney. There is a 1.9 x 1.2 x 1.7 cm anechoic cyst at the superior pole of the right kidney. No hydronephrosis. The left kidney measures 10.2 cm in length, which is normal in size. There is increased echogenicity of the left kidney. There is mild hydronephrosis of the left kidney. No intraluminal mass is seen in the bladder. The bladder volume at the time of the examination is approximately 166 cc. There is no bladder wall thickening. IMPRESSION: Mild hydronephrosis of the left kidney. No hydronephrosis of the right kidney. The kidneys appear mildly echogenic, consistent with medical renal disease.
[2025-04-03] MEDS: SODIUM CHLOR 0.9% PF (SALINE LOCK) 10ML VIAL/SYR IV SCH (20:52)
[2025-04-03 21:04] VITALS: PULSE 78; RESP 18; O2SAT 97
[2025-04-03 22:20] VITALS: BP 156/88; PULSE 84; RESP 19; TEMP 98.4; O2SAT 98
[2025-04-03] MEDS ORDERED: PREG75CA90 PO (23:32)
[2025-04-03] MEDS ORDERED: FLUT100I PO (23:32)
[2025-04-03] MEDS ORDERED: LOSA50TA30 PO (23:32)
[2025-04-03] MEDS ORDERED: ALBU108A5 INH (23:32)
[2025-04-03] MEDS ORDERED: NAP500T PO (23:32)
[2025-04-03] MEDS ORDERED: BACL10TA PO (23:32)
[2025-04-03] MEDS ORDERED: OXYB5TAB14 PO (23:32)
[2025-04-03] MEDS ORDERED: LISI20TA56 PO (23:32)
[2025-04-03] MEDS ORDERED: FERR325T20 PO (23:32)
[2025-04-03] MEDS ORDERED: ESZO2TAB24 PO (23:33)
[2025-04-04] MEDS: MELATONIN 5 MG TAB PO ONE (00:03)
[2025-04-04 01:00] VITALS: BP 154/94; PULSE 75; RESP 20; TEMP 98; O2SAT 99
[2025-04-04 04:52] LABS: Urine Protein, UAD Negative (Negative)
[2025-04-04 04:54] LABS: Protein, Urine 27.2 mg/dL (1-14)
[2025-04-04 05:00] VITALS: BP 158/100; PULSE 70; RESP 19; TEMP 98.1; O2SAT 96
[2025-04-04] MEDS: LISINOPRIL 20 MG TAB PO ONE (06:15)
[2025-04-04 06:16] LABS: Hemoglobin 11.5 g/dL (13.5-17.5)
[2025-04-04 06:20] LABS: Hematocrit 36.1 % (41.0-53.0); Mean Corpuscular Hemoglobin 26.7 pg (28.0-32.0); Mean Corpuscular Volume 83.4 fL (80.0-100.0); Nucleated Red Blood Cells % 0.0 %
[2025-04-04 06:33] LABS: Chloride 104 mmol/L (98-107); Potassium 4.6 mmol/L (3.5-5.1); Sodium 140 mmol/L (136-145)
[2025-04-04 06:34] LABS: Anion Gap 11 (5-15); Calcium 9.2 mg/dL (8.7-10.4); Carbon Dioxide 25 mmol/L (20-31)
[2025-04-04 06:38] LABS: Alkaline Phosphatase 95 U/L (46-116)
[2025-04-04 06:39] LABS: BUN/Creatinine Ratio 15.4 (10.0-20.0); Glucose 100 mg/dL (74-106)
[2025-04-04 06:40] LABS: Blood Urea Nitrogen 34 mg/dL (9-23); Total Protein 7.1 g/dL (5.7-8.2)
[2025-04-04 06:41] LABS: Albumin 3.5 g/dL (3.2-4.8)
[2025-04-04] MEDS ORDERED: LISI20TA56 PO (06:47)
[2025-04-04 06:51] LABS: Bilirubin, Total 0.3 mg/dL (0.2-1.0)
[2025-04-04 07:07] LABS: Alanine Aminotransferase 25 U/L (7-40)
[2025-04-04 08:00] VITALS: O2SAT 96
[2025-04-04 08:43] VITALS: BP 161/98; PULSE 75; RESP 17; TEMP 97.8; O2SAT 96
[2025-04-04] MEDS: PANTOPRAZOLE 40 MG/10 ML VIAL INJ IV SCH (09:43)
[2025-04-04] MEDS: ONDANSETRON HCL 4 MG/2 ML VIAL IV PRN (09:46)
[2025-04-04] MEDS: ENOXAPARIN SOD 30 MG/0.3 ML SYRINGE SC SCH (10:00)
--- NOTE | 2025-04-04 10:28 | DVHPN2 ---
Progress Note Date Seen: Apr 04, 2025 Medical Necessity Reason Pt with a Central, PICC or Fol: No Subjective Patient reports: No new complaints Other Systems: Patient seen and examined by myself today in follow-up Objective vital signs Vital Sign Date Time Temp Pulse Resp B/P (MAP) Pulse Ox O2 Delivery O2 Flow Rate FiO2 04/04/25 08:43 97.8 75 17 161/98 (119) 96 97.8 04/04/25 08:00 Room Air* 0 21 Total Intake and Output 04/03/25 04/03/25 04/04/25 15:00 23:00 07:00 Intake Total 300 ml Balance 300 ml medications Current Medications Medications Dose Ordered Sig/Melanie Route Start Time Stop Time Status Last Admin Dose Admin Sodium Chloride 10 ml Q8HR IV 04/03/25 22:00 04/03/25 21:03 10 ML Ondansetron HCl 4 mg Q4HP PRN IV 04/03/25 17:15 04/04/25 09:46 4 MG Enoxaparin Sodium 30 mg DAILY SC 04/04/25 10:00 Acetaminophen 650 mg Q6HP PRN PO 04/03/25 17:15 Pantoprazole Sodium 40 mg DAILY IV 04/04/25 10:00 04/04/25 09:43 40 MG Examination: LUNGS:Normal, CVS:Normal, MSK:Normal laboratory and microbiology Laboratory Tests 04/04/25 05:21 Test 04/04/25 05:21 Range/Units Serum Glucose 100 74-106 mg/dL Problem List/Assessment/Plan Problem List/Assessment/Plan Acute kidney injury superimposed Chronic Kidney Disease stage IV, off hemodialysis for six weeks Dislodged right IJ tunneled hemodialysis catheter History of obstructive uropathy Left hydronephrosis Hypertension Anemia of chronic kidney disease Recommendations Closely monitor fluid And electrolytes Avoid nephrotoxic medications Strict I&O's Check urinalysis, lytes and protein Kidney US bilateral echogenic kidney with left hydronephrosis BP control Radiology to remove tunnel IJ HD catheter Will continue to follow with you Plan discussed with: Patient My Orders My Orders Orders - HAFSA DOMINGUEZ MD Procedure Category Date Status Time Kidney US 04/03/25 Resulted 19:21 Renal Specific DIET 04/04/25 Transmitted Diet(Renal) Breakfast HAFSA DOMINGUEZ MD Apr 04, 2025 10:28
[2025-04-04 13:00] VITALS: BP 133/85; PULSE 90; RESP 16; TEMP 97.9; O2SAT 96
[2025-04-04] MEDS ORDERED: AMLO1TAB23 PO (15:02)
--- NOTE | 2025-04-04 15:04 | DVHDS2 ---
Discharge Summary Date of Admission Apr 03, 2025 at 17:10 Date of Discharge: Apr 04, 2025 Labs/Diagnostic Data: Laboratory Results Test 04/04/25 05:21 04/04/25 04:00 04/03/25 19:42 04/03/25 18:01 White Blood Count 8.9 10^3/uL (4.4-10.8) Red Blood Count 4.32 10^6/uL (4.5-5.90) Hemoglobin 11.5 g/dL (13.5-17.5) Hematocrit 36.1 % (41.0-53.0) Mean Corpuscular Volume 83.4 fL (80.0-100.0) Mean Corpuscular Hemoglobin 26.7 pg (28.0-32.0) Mean Corpuscular Hemoglobin Concent 32.0 g/dL (32.0-36.0) Red Cell Distribution Width 16.7 % (11.8-14.3) Platelet Count 221 10^3/uL (140-450) Mean Platelet Volume 9.2 fL (6.9-10.8) Neutrophils (%) (Auto) 60.5 % (37.0-80.0) Lymphocytes (%) (Auto) 31.1 % (10.0-50.0) Monocytes (%) (Auto) 6.3 % (0.0-12.0) Eosinophils (%) (Auto) 1.6 % (0.0-7.0) Basophils (%) (Auto) 0.5 % (0.0-2.0) Neutrophils # (Auto) 5.4 10 ^3/uL (1.6-8.6) Lymphocytes # (Auto) 2.8 10 ^3/uL (0.4-5.4) Monocytes # (Auto) 0.6 10 ^3/uL (0-1.3) Eosinophils # (Auto) 0.1 10 ^3/uL (0-0.8) Basophils # (Auto) 0 10 ^3/uL (0-0.2) Nucleated Red Blood Cells 0.0 % Sodium Level 140 mmol/L (136-145) Potassium Level 4.6 mmol/L (3.5-5.1) Chloride Level 104 mmol/L (98-107) Carbon Dioxide Level 25 mmol/L (20-31) Anion Gap 11 (5-15) Blood Urea Nitrogen 34 mg/dL (9-23) Creatinine 2.21 mg/dL (0.700-1.30) Glomerular Filtration Rate Calc 29 mL/min (>90) BUN/Creatinine Ratio 15.4 (10.0-20.0) Serum Glucose 100 mg/dL (74-106) Calcium Level 9.2 mg/dL (8.7-10.4) Total Bilirubin 0.3 mg/dL (0.2-1.0) Aspartate Amino Transferase (AST) 29 U/L (13-40) Alanine Aminotransferase (ALT) 25 U/L (7-40) Alkaline Phosphatase 95 U/L (46-116) Total Protein 7.1 g/dL (5.7-8.2) Albumin 3.5 g/dL (3.2-4.8) Urine Color Light-yellow (Yellow) Urine Clarity Clear (Clear) Urine pH 5.5 (5.0-9.0) Urine Specific [place] 1.014 (1.001-1.035) Urine Protein Negative (Negative) Urine Ketones Negative (Negative) Urine Blood Negative /uL (Negative) Urine Nitrite Negative (Negative) Urine Bilirubin Negative (Negative) Urine Urobilinogen Normal mg/dL (Negative) Urine Leukocyte Esterase Negative /uL (Negative) Urine RBC 2 /hpf (0 - 3) Urine Microscopic WBC 4 /HPF (0-3) Urine Squamous Epithelial Cells None seen /hpf (<5) Urine Bacteria None seen /hpf (None Seen) Urine Creatinine 68.27 mg/dL (30.0-125.0) Urine Protein/Creatinine Ratio 0.40 Urine Sodium 140 mmol/L (40-220) Urine Glucose Normal mg/dL (Normal) Urine Total Protein 27.2 mg/dL (1-14) Vitamin D 25-Hydroxy 77.7 ng/mL (30.0-100) Prothrombin Time 11.2 sec (9.3-11.8) Prothrombin Time INR 1.06 (0.9-1.15) Activated Partial Thromboplast Time 25.5 SEC (24.5-34.5) Test 04/03/25 11:18 Phosphorus Level 3.5 mg/dL (2.4-5.1) Magnesium Level 2.0 mg/dL (1.6-2.6) Direct Bilirubin < 0.1 mg/dL (<0.3) Troponin I High Sensitivity 7 ng/L (</=54) B-Type Natriuretic Peptide 80.89 pg/mL (0-100) Thyroid Stimulating Hormone (TSH) 1.48 uIU/mL (0.55-4.78) Other Laboratory Tests 04/04/25 05:21 Brief Hx & Hospital Course: Mr. Nixon is a presents with accidental dislodgment of her dialysis catheter that had been in place for approximately 2 months. The patient reports that the catheter came out accidentally when he was getting up and moving around. He has been receiving dialysis every 3 days until recently when the dialysis center told her not to come anymore and that they would call her if he needed more frequent dialysis. As a result, she has not received dialysis for the past 2 weeks. The patient denies chest pain, difficulty breathing, leg swelling, or abdominal pain. 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 Family history: Non contributory Social history: Lives in [place] with . Denies current tobacco, alcohol and other drug abuse Allergies: Denies Home medication: Naproxen, Lunesta, Lisinopril, Alendronate, Omeprazoles, Duoloxetine, gabapentin, docusate, atorvastatin, tamsulosin. 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 I spoke to Dr. Grant today on the medical floor and he feels given his kidney function is stabilized he is does not need further hemodialysis. Therefore he is recommending not to place dialysis catheter. And stable to be discharged home. I have talked with the patient and his along with the nurse at bedside and advised him to stop lisinopril and losartan given renal failure with a possible two hyperkalemia. Patient is advised to take amlodipine per his blood pressure. Advised to follow up with the PCP and Nephrology outpatient basis. I have talked with the patient's /patient regarding his hospital diagnosis, treatment he received, discharge medications including side effects, discharge instructions and follow- up plan of care. They have verbalized understanding of these and agree with the care plan as outlined. Consults/Reason for consult Progress Note Date Seen: Apr 04, 2025 Medical Necessity Reason Pt with a Central, PICC or Fol: No Subjective Patient reports: No new complaints Other Systems: Patient seen and examined by myself today in follow-up Problem List/Assessment/Plan Acute kidney injury superimposed Chronic Kidney Disease stage IV, off hemodialysis for six weeks Dislodged right IJ tunneled hemodialysis catheter History of obstructive uropathy Left hydronephrosis Hypertension Anemia of chronic kidney disease Recommendations Closely monitor fluid And electrolytes Avoid nephrotoxic medications Strict I&O's Check urinalysis, lytes and protein Kidney US bilateral echogenic kidney with left hydronephrosis BP control Radiology to remove tunnel IJ HD catheter Will continue to follow with you Plan discussed with: Patient My Orders My Orders Orders - HAFSA DOMINGUEZ MD Procedure Category Date Status Time Kidney US 04/03/25 Resulted 19:21 Renal Specific DIET 04/04/25 Transmitted Diet(Renal) Breakfast HAFSA DOMINGUEZ MD Apr 04, 2025 10:28 Condition at Discharge: Stable Final Diagnosis/Problems List tl and ckd3, htn Discharge Disposition: Home Discharge Instruct/Medications Diet: Consistent carbohydrate, Cardiac 2g Na,low cholest Activity: No Restrictions, As Tolerated Follow Up/Referral: [facility] 2 weeks for kidney failure follow up. Medications: STOP taking lisinopril and losartaan due to kidney failure. Take amlodipine as prescribed for blood pressure Scheduled Alendronate Sodium (Alendronate Sodium), 1 TAB PO QWEEKLY, (Reported) Amlodipine Besylate (Amlodipine Besylate), 1 TAB PO DAILY Duloxetine HCl (Duloxetine HCl), 3 CAP PO DAILY, (Reported) Eszopiclone (Lunesta), 3 MG PO DAILY, (Reported) Ferrous Sulfate (Ferosul), 1 TAB PO BID, (Reported) Fluticasone Furoate-Vilanterol (Breo Ellipta), 1 PUFF PO DAILY, (Reported) Omeprazole (Omeprazole Dr), 1 CAP PO DAILY, (Reported) Oxybutynin Chloride (Oxybutynin Chloride), 1 TAB PO BID, (Reported) Promethazine-Dm (Promethazine Dm 6.25-15 mg/5Ml), 7 ML PO TID Tamsulosin Hcl (Tamsulosin Hcl), 1 CAP PO HS Scheduled PRN Docusate Sodium (Docusate Sodium), 1 CAP PO TID PRN for constipation, (Reported) Miscellaneous Medications Albuterol Sulfate (Albuterol Sulfate Hfa), INH, (Reported) Atorvastatin Calcium (Atorvastatin Calcium), 1 TAB PO, (Reported) Pregabalin (Pregabalin), PO, (Reported) Discontinued Medications Azithromycin (Azithromycin), 1 TAB PO DAILY Baclofen (Baclofen), 1 TAB PO TID, (Reported) Lisinopril (Lisinopril), 1 TAB PO DAILY, (Reported) Lisinopril (Lisinopril), 10 MG PO DAILY, (Reported) Losartan Potassium & Hydrochlo (Losartan Potassium/Hydroc), 1 TAB PO DAILY, (Reported) Naproxen (Naprosyn Tablet), 1 TAB PO, (Reported) Discharge Statement: "Patient was advised to return to the ER or call 911 if any headaches, dizziness, shortness of breath, chest pain, abdominal pain, bleeding, fevers, or worsening of medical condition. Patient was counseled about treatment plan, medications, possible side effects, patientverbalized understanding. All questions were answered to the best of my ability. This discharge took greater then 30 minutes in planning, reviewing documentation, counseling the patient, and discussing with other team members." ASSESSMENT ASSESSMENT Assessment tl and ckd3, htn Date of Service: Apr 04, 2025 Billing Provider: ROMULO AVILES MD Common Visit Codes: 32430-PTZ/OBS DISCH DAY <30MIN ROMULO AVILES MD Apr 04, 2025 15:04
[2025-04-04 15:40] VITALS: BP 133/85; PULSE 90; RESP 16; TEMP 97.9; O2SAT 96
== END 2025-04-04 16:15 | disposition home or self-care (01) | DRG 698 ==
LOC: ER 09:14 → OVERFLOW 17:10 → EAST 22:15
PROVIDERS: ATTEND Internal Medicine Nephrology
DX: T82.42XA Displacement of vascular dialysis catheter, initial encounter (principal); N17.0 Acute kidney failure with tubular necrosis; N18.4 Chronic kidney disease, stage 4 (severe); N13.6 Pyonephrosis; Z99.2 Dependence on renal dialysis; D63.1 Anemia in chronic kidney disease; F32.A Depression, unspecified; I12.9 Hypertensive chronic kidney disease with stage 1 through stage 4 chronic kidney disease, or unspecified chronic kidney disease; E78.5 Hyperlipidemia, unspecified; G89.29 Other chronic pain; M81.0 Age-related osteoporosis without current pathological fracture; N40.0 Benign prostatic hyperplasia without lower urinary tract symptoms; Y83.9 Surgical procedure, unspecified as the cause of abnormal reaction of the patient, or of later complication, without mention of misadventure at the time of the procedure; Z83.3 Family history of diabetes mellitus; Z90.79 Acquired absence of other genital organ(s); Y92.89 Other specified places as the place of occurrence of the external cause
CPT/HCPCS: 36415; 71045; 76775; 80048; 80053; 80076; 81001; 82306; 82570; 83735; 83880; 83970; 84100; 84156; 84300; 84443; 84484; 85025; 85610; 85730; 87081; G0378; J2405; J2470